=== PATIENT | female | born 1975 | race African-American/Black ===

== ENCOUNTER 2018-02-08 23:34 | Inpatient (IN) | payer MEDICAID ==
[2018-02-09 00:57] LABS: BASO # 0.1 x10^3/uL (0.0-0.2); BASO % 2 % (0-3); EOS # 0.1 x10^3/uL (0.0-0.7); EOS % 1 % (0-3); HEMATOCRIT 41.8 % (36.0-47.0); HEMOGLOBIN 14.3 g/dL (12.0-15.5); LYMPH # 1.6 x10^3/uL (1.0-4.8); LYMPH % 21 % (24-48); MEAN CORPUSCULAR HEMOGLOBIN 29 pg (25-35); MEAN CORPUSCULAR HGB CONC 34 g/dL (31-37); MEAN CORPUSCULAR VOLUME 86 fL (79-100); MONO # 0.6 x10^3/uL (0.0-1.1); MONO % 8 % (0-9); NEUT # 5.5 x10^3uL (1.8-7.7); NEUT % 69 % (31-73); PLATELET COUNT 266 x10^3/uL (140-400); RED BLOOD COUNT 4.89 x10^6/uL (3.50-5.40); RED CELL DISTRIBUTION WIDTH 16.1 % (11.5-14.5)
[2018-02-09 01:10] LABS: ADD MAN DIFF? YES
[2018-02-09 01:12] LABS: ALBUMIN 3.6 g/dL (3.4-5.0); ALBUMIN/GLOBULIN RATIO 0.9 (1.0-1.7); ALK PHOS 131 U/L (46-116); ALT (SGPT) 36 U/L (14-59); ANION GAP 8 (6-14); AST (SGOT) 35 U/L (15-37); BLOOD UREA NITROGEN 24 mg/dL (7-20); BUN/CREATININE RATIO 16 (6-20); CALCIUM 8.9 mg/dL (8.5-10.1); CARBON DIOXIDE 27 mmol/L (21-32); CHLORIDE 93 mmol/L (98-107); CREATININE 1.5 mg/dL (0.6-1.0); GFR 37.9; POTASSIUM 5.2 mmol/L (3.5-5.1); SODIUM 128 mmol/L (136-145); TOTAL BILIRUBIN 1.1 mg/dL (0.2-1.0); TOTAL PROTEIN 7.7 g/dL (6.4-8.2)
[2018-02-09 01:16] LABS: GLUCOSE 521 mg/dL (70-99)
[2018-02-09 01:16] LABS: TROPONINI < 0.017 ng/mL (0.000-0.055)
[2018-02-09] MEDS: INSULIN REGULAR 100 UNIT/ML 3ML VIAL. IM (02:29)
[2018-02-09] MEDS: KETOROLAC 15 MG/ML VIAL. IV (02:30)
[2018-02-09] MEDS: FAMOTIDINE 20 MG TABLET. PO (02:30)
[2018-02-09] MEDS: IV NORMAL SALINE 1000ML BAG 1,000 ML IV ×4 (02:31→14:15)
[2018-02-09 04:03] LABS: POC GLUCOSE 439 mg/dL (70-99)
[2018-02-09] MEDS: INSULIN REGULAR 100 UNIT/ML 3ML VIAL. SQ (04:30)
[2018-02-09] MEDS ORDERED: INSULIN REGULAR 100 UNIT/ML 3ML VIAL. IV (04:30)
[2018-02-09 05:27] LABS: ANION GAP 9 (6-14); BLOOD UREA NITROGEN 27 mg/dL (7-20); CALCIUM 7.7 mg/dL (8.5-10.1); CARBON DIOXIDE 25 mmol/L (21-32); CHLORIDE 99 mmol/L (98-107); CREATININE 1.7 mg/dL (0.6-1.0); GFR 39.7; GLUCOSE 446 mg/dL (70-99); POTASSIUM 4.9 mmol/L (3.5-5.1); SODIUM 133 mmol/L (136-145)
[2018-02-09 05:54] LABS: ACETONE NEG (NEG)
[2018-02-09] MEDS ORDERED: ONDANSETRON PF 4 MG/2 ML VIAL. IV (06:15)
[2018-02-09] MEDS ORDERED: DEXTROSE 50% 25 GM / 50ML DISP.SYRIN. IV (06:15)
[2018-02-09 06:59] LABS: BILIRUBIN,URINE NEGATIVE (NEG); CLARITY,URINE CLEAR; COLOR,URINE YELLOW; GLUCOSE,URINE >=1000 mg/dL (NEG); NITRITE,URINE NEGATIVE (NEG); PH,URINE 5.5; PROTEIN,URINE 100 mg/dL (NEG-TRACE); UROBILINOGEN,URINE 0.2 mg/dL (0.2 mg/dL)
[2018-02-09] MEDS: oxyCODONE/APAP 10/325 1 TAB TABLET PO (07:02)
[2018-02-09 07:27] LABS: BACTERIA,URINE MANY /HPF (0-FEW); RBC,URINE OCC /HPF (0-2); SQUAMOUS EPITHELIAL CELL,UR MOD /LPF
[2018-02-09 07:59] LABS: POC GLUCOSE 360 mg/dL (70-99)
[2018-02-09] MEDS: INSULIN LISPRO 300 UNITS/3 ML INSULN.PEN. SQ ×4 (08:52→17:00)
[2018-02-09 12:19] LABS: POC GLUCOSE 277 mg/dL (70-99)
[2018-02-09 15:46] LABS: INR 1.4 (0.8-1.1); PROTHROMBIN TIME PATIENT 16.8 SEC (11.7-14.0)
[2018-02-09] MEDS: WARFARIN 4 MG TABLET. PO (16:41)
[2018-02-09] MEDS: hydroCHLOROthiazide 25 MG TABLET PO (16:41)
[2018-02-09] MEDS: LISINOPRIL 20 MG TABLET PO (16:42)
[2018-02-09] MEDS: amLODIPine BESYLATE 10 MG TABLET PO (16:42)
[2018-02-09] MEDS: KETOROLAC 30 MG/ML INJ. IV (16:43)
[2018-02-09] MEDS: GABAPENTIN 300 MG CAPSULE. PO ×2 (16:43→20:52)
[2018-02-09 16:55] LABS: POC GLUCOSE 295 mg/dL (70-99)
[2018-02-09] MEDS ORDERED: GABAPENTIN 300 MG CAPSULE. PO (17:00)
[2018-02-09] MEDS: oxyCODONE/APAP 7.5/325 1 TAB TABLET PO ×2 (19:21→23:26)
[2018-02-09 20:38] LABS: POC GLUCOSE 243 mg/dL (70-99)
[2018-02-09] MEDS: ATORVASTATIN CALCIUM 10 MG TABLET. PO (20:51)
[2018-02-09] MEDS: INSULIN GLARGINE 300 UNITS/3 ML INSULN.PEN. SQ (20:56)
[2018-02-09 20:59] LABS: POC GLUCOSE 231 mg/dL (70-99)
[2018-02-10 00:11] LABS: HEMOGLOBIN A1C 11.7 % (4.8-5.6)
[2018-02-10] MEDS: IV NORMAL SALINE 1000ML BAG 1,000 ML IV (01:56)
[2018-02-10 08:12] LABS: POC GLUCOSE 306 mg/dL (70-99)
[2018-02-10] MEDS: hydroCHLOROthiazide 25 MG TABLET PO (08:29)
[2018-02-10] MEDS: amLODIPine BESYLATE 10 MG TABLET PO (08:29)
[2018-02-10] MEDS: LISINOPRIL 20 MG TABLET PO (08:31)
[2018-02-10] MEDS: INSULIN LISPRO 300 UNITS/3 ML INSULN.PEN. SQ ×6 (08:31→17:18)
[2018-02-10] MEDS: GABAPENTIN 300 MG CAPSULE. PO ×4 (08:32→21:59)
[2018-02-10] MEDS: oxyCODONE/APAP 7.5/325 1 TAB TABLET PO ×3 (08:53→19:09)
[2018-02-10 14:12] LABS: POC GLUCOSE 241 mg/dL (70-99)
[2018-02-10 17:09] LABS: POC GLUCOSE 191 mg/dL (70-99)
[2018-02-10] MEDS: WARFARIN 4 MG TABLET. PO (17:10)
[2018-02-10 20:49] LABS: POC GLUCOSE 120 mg/dL (70-99)
[2018-02-10] MEDS: ATORVASTATIN CALCIUM 10 MG TABLET. PO (21:59)
[2018-02-10] MEDS: INSULIN GLARGINE 300 UNITS/3 ML INSULN.PEN. SQ (22:04)
[2018-02-11] MEDS: oxyCODONE/APAP 7.5/325 1 TAB TABLET PO ×4 (00:02→21:13)
[2018-02-11 05:27] LABS: INR 1.3 (0.8-1.1); PROTHROMBIN TIME PATIENT 15.3 SEC (11.7-14.0)
[2018-02-11 07:26] LABS: POC GLUCOSE 279 mg/dL (70-99)
[2018-02-11] MEDS: GABAPENTIN 300 MG CAPSULE. PO ×4 (08:11→21:13)
[2018-02-11] MEDS: hydroCHLOROthiazide 25 MG TABLET PO (08:11)
[2018-02-11] MEDS: LISINOPRIL 20 MG TABLET PO (08:12)
[2018-02-11] MEDS: amLODIPine BESYLATE 10 MG TABLET PO (08:12)
[2018-02-11] MEDS ORDERED: ONDANSETRON PF 4 MG/2 ML VIAL. IV (08:15)
[2018-02-11] MEDS ORDERED: DEXTROSE 50% 25 GM / 50ML DISP.SYRIN. IV (08:15)
[2018-02-11] MEDS ORDERED: ACETAMINOPHEN 500 MG TABLET PO (08:15)
[2018-02-11] MEDS: INSULIN LISPRO 300 UNITS/3 ML INSULN.PEN. SQ ×6 (08:19→17:17)
[2018-02-11] MEDS: INSULIN GLARGINE 300 UNITS/3 ML INSULN.PEN. SQ ×3 (09:00→21:18)
[2018-02-11 11:21] LABS: POC GLUCOSE 228 mg/dL (70-99)
[2018-02-11] MEDS: WARFARIN 4 MG TABLET. PO (16:08)
[2018-02-11 16:46] LABS: POC GLUCOSE 133 mg/dL (70-99)
[2018-02-11 21:01] LABS: POC GLUCOSE 219 mg/dL (70-99)
[2018-02-11] MEDS: ATORVASTATIN CALCIUM 10 MG TABLET. PO (21:13)
[2018-02-12 04:36] LABS: INR 1.5 (0.8-1.1); PROTHROMBIN TIME PATIENT 17.6 SEC (11.7-14.0)
[2018-02-12] MEDS: INSULIN LISPRO 300 UNITS/3 ML INSULN.PEN. SQ ×4 (08:00→11:51)
[2018-02-12 08:06] LABS: POC GLUCOSE 155 mg/dL (70-99)
[2018-02-12] MEDS: hydroCHLOROthiazide 25 MG TABLET PO (08:53)
[2018-02-12] MEDS: amLODIPine BESYLATE 10 MG TABLET PO (08:53)
[2018-02-12] MEDS: GABAPENTIN 300 MG CAPSULE. PO ×3 (08:54→16:12)
[2018-02-12] MEDS: LISINOPRIL 20 MG TABLET PO (08:54)
[2018-02-12] MEDS: INSULIN GLARGINE 300 UNITS/3 ML INSULN.PEN. SQ (08:59)
[2018-02-12] MEDS: oxyCODONE/APAP 7.5/325 1 TAB TABLET PO (09:04)
[2018-02-12 11:50] LABS: POC GLUCOSE 72 mg/dL (70-99)
[2018-02-12 12:45] LABS: POC GLUCOSE 89 mg/dL (70-99)
[2018-02-12] MEDS: WARFARIN 4 MG TABLET. PO (16:12)
== END 2018-02-12 17:00 | disposition home or self-care (01) | DRG 74 ==
LOC: ER 23:34 → 5 NORTH 02-09 06:03
DX: E11.40 Type 2 diabetes mellitus with diabetic neuropathy, unspecified (principal); Z68.41 Body mass index [BMI] 40.0-44.9, adult; E11.65 Type 2 diabetes mellitus with hyperglycemia; Z88.0 Allergy status to penicillin; E66.01 Morbid (severe) obesity due to excess calories; J44.9 Chronic obstructive pulmonary disease, unspecified; I10 Essential (primary) hypertension; G89.29 Other chronic pain; F12.10 Cannabis abuse, uncomplicated; F17.200 Nicotine dependence, unspecified, uncomplicated; Z79.4 Long term (current) use of insulin; Z79.899 Other long term (current) drug therapy; Z83.3 Family history of diabetes mellitus; Z86.73 Personal history of transient ischemic attack (TIA), and cerebral infarction without residual deficits; Z89.611 Acquired absence of right leg above knee; Z89.511 Acquired absence of right leg below knee; Z91.19 Patient's noncompliance with other medical treatment and regimen; Z90.49 Acquired absence of other specified parts of digestive tract; Z88.5 Allergy status to narcotic agent
CPT/HCPCS: 36415; 71045; 80048; 80053; 81001; 82010; 82962; 83036; 84484; 85025; 85610; 87086; 93005; 93925; 96360; 96361; 96372; 96374; 99285; 99285-25; J1815; J1885; J7030

== ENCOUNTER 2020-02-10 17:37 | Inpatient (IN) | payer MEDICAID ==
[~2020-02-10] VITALS: Ht 162.6 cm; Wt 115.2 kg
[~2020-02-10 17:37] MED LIST: AMLO10TA8 PO; CELE200C PO; GABA300C18 PO; HYDR-2145 PO; INSU100I11 SQ; INSU100I13 SQ; LISI-130 PO; LOVA40TA2 PO; WARF4TAB64 PO
--- NOTE | 2020-02-10 18:15 | PHYS DOC ---
Past Medical History Past Medical History: COPD, Diabetes-Type II, Hypertension, Stroke Past Surgical History: No Surgical History, Cholecystectomy Additional Past Surgical Histo: R BKA, Left toes amputated Smoking Status: Current Every Day Smoker Alcohol Use: Rarely Drug Use: Marijuana General Adult EDM: Chief Complaint: LOWER EXTREMITY SWELLING HPI: HPI: Patient is a 44 year old female presenting to the ED with a chief complaint of generalized weakness and increased swelling in her upper and lower extremities. 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 Patient does state that she has a history of diabetes, high blood pressure, high cholesterol. Patient does admit to being an active smoker. Patient states that she has had these symptoms for the last 3 to 4 days as well as chest pain. Patient denies being on any anticoagulation. Patient states that the swelling in the left lower extremity is worse in the last 4 days. Review of Systems: Review of Systems: Constitutional: Denies fever or chills. [] Eyes: Denies change in visual acuity. [] HENT: Denies nasal congestion or sore throat. [] Respiratory: Denies cough or shortness of breath. [] Cardiovascular: Complains of chest pain [] GI: Denies abdominal pain, nausea, vomiting, bloody stools or diarrhea. [] : Denies dysuria. [] Musculoskeletal: Swelling in upper and lower extremities [] Integument: Denies rash. [] Neurologic: Complains of generalized weakness [] Heart Score: Risk Factors: Risk Factors: DM, Current or recent (<one month) smoker, HTN, HLP, family history of CAD, obesity. Risk Scores: Score 0 - 3: 2.5% MACE over next 6 weeks - Discharge Home Score 4 - 6: 20.3% MACE over next 6 weeks - Admit for Clinical Observation Score 7 - 10: 72.7% MACE over next 6 weeks - Early Invasive Strategies Allergies: Allergies: Allergies Coded Allergies Type Severity Reaction Last Updated Verified Penicillins Allergy Intermediate 02/10/18 Yes morphine Allergy Intermediate 02/10/18 Yes Physical Exam: PE: Constitutional: Well developed, well nourished, no acute distress, non-toxic appearance. [] HENT: Normocephalic, atraumatic Eyes: EOMI Neck: Normal range of motion, Supple Cardiovascular: Heart rate regular rhythm Lungs & Thorax: Bilateral rhonchi [] Abdomen: Bowel sounds normal, soft, no tenderness Extremities: Patient has right BKA and partial amputation of the left foot. Swelling in the left lower extremity Neurologic: Alert and oriented X 3 EKG: EKG: EKG interpretation: 18: 27 on 02/10/2020 HR: 80 Sinus rhythm Regular intervals Normal axis Nonspecific ST changes [] Radiology/Procedures: Radiology/Procedures: [] Impression: Chest x-ray.Impression: Mild basal infiltrates could be discoid atelectasis or pneumonia. Course & Med Decision Making: Course & Med Decision Making Pertinent Labs and Imaging studies reviewed. (See chart for details) Ordered labs, chest x-ray, EKG, troponin, ultrasound of the left lower extremity. EKG does not show any acute changes. Creatinine is 1.7. Troponin is 0.134. Patient was given aspirin in the ER. Chest x-ray shows atelectasis. Ultrasound of the left lower extremity is negative for DVT. Patient will be admitted to the hospital for cardiac work-up. Discussed results and plan of care with patient. I discussed case with Dr. Lopez who accepts admission. Also discussed case with order desk clerk on-call Dr. Campbell who accepts consultation. Cardiology recommends the patient be started on heparin. Dragon Disclaimer: Sherif Disclaimer: This electronic medical record was generated, in whole or in part, using a voice recognition dictation system. Departure Departure Referrals: UNKNOWN PCP NAME (PCP) Justicifation of Admission Dx: Justifications for Admission: Justification of Admission Dx: Yes DC: Acute NSTEMI JUS DAVIS DO Feb 10, 2020 18:14
[2020-02-10 18:44] LABS: BASO # 0.1 x10^3/uL (0.0-0.2); BASO % 1 % (0-3); EOS # 0.1 x10^3/uL (0.0-0.7); EOS % 1 % (0-3); HEMATOCRIT 35.4 % (36.0-47.0); HEMOGLOBIN 12.1 g/dL (12.0-15.5); LYMPH # 1.3 x10^3/uL (1.0-4.8); LYMPH % 13 % (24-48); MEAN CORPUSCULAR HEMOGLOBIN 30 pg (25-35); MEAN CORPUSCULAR HGB CONC 34 g/dL (31-37); MEAN CORPUSCULAR VOLUME 87 fL (79-100); MONO # 0.6 x10^3/uL (0.0-1.1); MONO % 6 % (0-9); NEUT # 8.6 x10^3/uL (1.8-7.7); NEUT % 80 % (31-73); PLATELET COUNT 240 x10^3/uL (140-400); RED BLOOD COUNT 4.05 x10^6/uL (3.50-5.40); RED CELL DISTRIBUTION WIDTH 15.5 % (11.5-14.5); WHITE BLOOD COUNT 10.7 x10^3/uL (4.0-11.0)
--- NOTE | 2020-02-10 18:55 | RAD ---
CHEST AP ONLY Clinical History: Reason: pain / Spl. Instructions: / History: Technique: AP view of the chest was obtained at 02/10/2020 6:21 PM. Comparison: February 09, 2018. Findings: The cardiomediastinal silhouette is normal. The pulmonary vasculature is normal. There is hazy opacity in the lung bases right worse than left. Impression: Mild basal infiltrates could be discoid atelectasis or pneumonia. Electronically signed by: Venkata Rasmussen III, MD (02/10/2020 6:52 PM) [id number]
[2020-02-10 19:01] LABS: ALBUMIN 1.6 g/dL (3.4-5.0); ALBUMIN/GLOBULIN RATIO 0.5 (1.0-1.7); CALCIUM 7.4 mg/dL (8.5-10.1); CREATININE 1.7 mg/dL (0.6-1.0); GFR 39.3; TOTAL BILIRUBIN 0.2 mg/dL (0.2-1.0)
--- NOTE | 2020-02-10 19:12 | RAD ---
Left Lower Extremity Venous Doppler Ultrasound History: Reason: swelling / Spl. Instructions: / History: Comparison: None Procedure: Color flow, duplex, spectral analysis and 2D images are obtained with and without compression in the area of the common femoral vein, superficial femoral vein - femoral vein junction, main femoral vein (superficial femoral vein) and popliteal vein. Veins of the proximal calf are also imaged. Findings: There is normal duplex flow, color flow and compressibility of all visualized vein segments. No evidence of deep venous thrombus is present. Study is limited due to large body habitus. There is soft tissue edema. The peroneal vein and PTV's are not visualized. Impression: No evidence of DVT. Electronically signed by: Venkata Rasmussen III, MD (02/10/2020 7:08 PM) [id number]
[2020-02-10 19:44] LABS: BILIRUBIN,URINE NEGATIVE (NEG); CLARITY,URINE CLOUDY; COLOR,URINE YELLOW; NITRITE,URINE NEGATIVE (NEG); PROTEIN,URINE >=300 mg/dL (NEG-TRACE); UROBILINOGEN,URINE 0.2 mg/dL (0.2 mg/dL)
[2020-02-10 19:55] LABS: AMORPHOUS SEDIMENT,UR PRESENT /HPF; BACTERIA,URINE 0 /HPF (0-FEW); RBC,URINE RARE /HPF (0-2); SQUAMOUS EPITHELIAL CELL,UR FEW /LPF; WBC,URINE 0 /HPF (0-4)
[2020-02-10] MEDS ORDERED: ASPIRIN CHEWABLE 81 MG TABLET. PO ONE (20:00)
[2020-02-10] MEDS ORDERED: HEPARIN 25,000UTS/250ML PREMIX 250 ML IV SCH (21:15)
[2020-02-10 21:19] LABS: PROTHROMBIN TIME PATIENT 12.9 SEC (11.7-14.0)
[2020-02-10] MEDS ORDERED: HEPARIN for IV BOLUS 10,000 UNIT/10 ML VIAL. IV PRN (21:30)
[2020-02-10] MEDS ORDERED: HEPARIN for IV BOLUS 10,000 UNIT/10 ML VIAL. IV ONE (21:30)
[2020-02-10] MEDS ORDERED: ANTI-COAG MONITOR BY PHARMACY. MC PRN (21:30)
[2020-02-10] MEDS: HEPARIN 25,000UTS/250ML PREMIX 250 ML IV PRN (21:34)
--- NOTE | 2020-02-10 22:01 | HP ---
ADMIT DATE: 02/10/2020 CHIEF COMPLAINT: Lower extremity swelling. HISTORY OF PRESENT ILLNESS: The patient is a pleasant 44-year-old female who has multiple medical issues. She is complaining of swelling that has been coming on for several days. She tried increasing her home meds, but that did not work. It is rated at 7/10. She also apparently slipped and fell, hit her tailbone. She states that she is also little short of breath. While in the ER, we noted that her troponin was a little high. Chest x-ray is showing some mild basilar infiltrates, possibly pneumonia. Troponin level was a little high at 0.134. BNP is high at 9147. She also has hypokalemia with potassium of 3.0 and her acute renal failure with BUN 29, creatinine 1.7. I discussed the case with ER physician. We are going to admit the patient and do a cardiac workup for her swelling and replace her potassium. I will have Nephrology, Cardiology and Pulmonary look at her. PAST MEDICAL HISTORY: COPD, diabetes, hypertension, stroke, cholecystectomy, right BKA, left toe amputation, tobacco abuse, marijuana use. ALLERGIES: PENICILLIN AND MORPHINE. FAMILY HISTORY: Coronary artery disease. SOCIAL HISTORY: She smokes and also uses marijuana. MEDICATIONS: Reviewed, please refer to the MRAD. REVIEW OF SYSTEMS: GENERAL: No history of weight change, weakness or fevers. SKIN: No bruising, hair changes or rashes. EYES: No blurred, double or loss of vision. NOSE AND THROAT: No history of nosebleeds, hoarseness or sore throat. HEART: No history of palpitations, chest pain or shortness of breath on exertion. LUNGS: She complains of shortness of breath. GASTROINTESTINAL: Denies changes in appetite, nausea, vomiting, diarrhea or constipation. GENITOURINARY: No history of frequency, urgency, hesitancy or nocturia. NEUROLOGIC: Denies history of numbness, tingling, tremor or weakness. PSYCHIATRIC: No history of panic, anxiety or depression. ENDOCRINE: No history of heat or cold intolerance, polyuria or polydipsia. EXTREMITIES: She complains of swelling. MUSCULOSKELETAL: She complains of "tailbone pain." PHYSICAL EXAMINATION: VITAL SIGNS: Temperature is 98, pulse 81, respirations 18, blood pressure 154/80, O2 sat 98% on room air. GENERAL: No apparent distress. Alert and oriented. HEENT: Normal cephalic atraumatic, external auditory canals are patent. EYES: Extraocular muscles are intact, pupils are equally round and reactive to light and accommodation. MUSCULOSKELETAL: Well developed, well nourished, good range of motion. ENDOCRINE: No thyromegaly was palpated. LYMPHATICS: No cervical chain or axillary nodes were noted. HEMATOPOIETIC: No bruising. NECK: Supple, no JVD, no thyromegaly was noted. LUNGS: She has some slight crackles. HEART: RRR, S1, S2 present. Peripheral pulses intact, no obvious murmurs were noted. ABDOMEN: Soft, nontender. Positive bowel sounds no organomegaly, normal bowel sounds. EXTREMITIES: She has a left BKA. She has right lower extremity swelling, at 3+ edema. NEUROLOGIC: Normal speech, normal tone. A & O x3, moves all extremities, no obvious focal deficits. PSYCHIATRIC: Normal affect, normal mood. Stable. SKIN: No ulcerations or rashes, good skin turgor, no jaundice. VASCULAR: Good capillary refill, neurovascular bundle appears to be intact. LABORATORY DATA: Troponin is 0.134. BNP 9147. ASSESSMENT AND PLAN: Acute on chronic systolic and diastolic heart failure with incidental finding of hypokalemia and possible pneumonia on chest x-ray and chronic renal failure. The patient will be admitted. We will consult Pulmonary Medicine, Cardiology and Nephrology. Replace her potassium. We will consider IV Lasix if possible and if the consultants agree. Trend labs, home meds, DVT prophylaxis. Full code. Cardiac monitoring. PROGNOSIS: Guarded. CIELO HOPE DO DR: KEYLA/deshaun JOB#: [id number] / [id number]
--- NOTE | 2020-02-10 22:03 | NUR ---
Pt arrival to floor at this time via ER cart. Pt transferred from bed to bed with maximum assistance. Pt oriented to unit settings, unit routines, plan of care. Pt educated on high fall risk precautions and verbalized understanding. Pt attempted to try to stand and pivot to commode with gait belt and 2 staff assist and was unable to safely transfer due to significant weakness. A purewick catheter was inserted after explanation and discussion with the patient. Pt items and call light in reach. Bed alarm is on. Admission was completed. Pt has prosthesis at bedside, purse, cell phone and hand knitter. She declined an offer to lock any valuables up with security. A wound was noted on admit on later R knee that appears to be a callous that is slightly open. Wound consult placed.
[2020-02-10 22:37] VITALS: BP 161/92
[2020-02-10] MEDS ORDERED: RIVA20TA2 PO (23:08)
[2020-02-10] MEDS ORDERED: TORS20TA2 PO (23:08)
[2020-02-10] MEDS ORDERED: FURO80TA3 PO (23:08)
[2020-02-10] MEDS ORDERED: LOSA-73 PO (23:08)
[2020-02-10] MEDS ORDERED: MONT10TA49 PO (23:08)
[2020-02-10] MEDS ORDERED: TIZA2TAB4 PO (23:12)
[2020-02-11] MEDS ORDERED: DEXTROSE 50% 25 GM / 50ML DISP.SYRIN. IV PRN (00:30)
[2020-02-11] MEDS: fentaNYL PF VIAL 100 MCG/2 ML VIAL IVP PRN ×4 (00:37→19:55)
[2020-02-11] MEDS: INSULIN GLARGINE SYRINGE. SQ SCH ×2 (00:39→21:19)
[2020-02-11] MEDS ORDERED: INSULIN LISPRO 300 UNITS/3 ML VIAL. SQ ONE (01:00)
[2020-02-11 03:12] VITALS: BP 145/87
[2020-02-11 04:11] LABS: HEMATOCRIT 35.8 % (36.0-47.0); HEMOGLOBIN 12.3 g/dL (12.0-15.5); RED BLOOD COUNT 4.07 x10^6/uL (3.50-5.40); RED CELL DISTRIBUTION WIDTH 14.9 % (11.5-14.5); WHITE BLOOD COUNT 10.3 x10^3/uL (4.0-11.0)
--- NOTE | 2020-02-11 05:09 | NUR ---
Pt called out, complains of pelvic pain from not being able to pee. Pt has not voided since admission to the [facility]. Pt has some bladder distention observed and bladder scan revealed greater than 808cc in bladder. #16 cymraes rausch was inserted at this time with sterile technique with immediate return of clear yellow urine of at least 900cc to gravity just while I was in the room. Pt tolerated procedure well.
[2020-02-11 07:15] VITALS: BP 165/95
[2020-02-11] MEDS: INSULIN LISPRO 300 UNITS/3 ML VIAL. SQ SCH ×3 (08:28→17:00)
--- NOTE | 2020-02-11 10:26 | PDOC ---
PROGRESS NOTES History of Present Illness History of Present Illness IMPRESSION Acute on chronic systolic and diastolic heart failure NSTEMI hypokalemia HYPERTENSION MORBID OBESITY Hyperlipidemia possible pneumonia Mild basal infiltrates could be discoid atelectasis or pneumonia. chronic renal disease . STAGE 3 diabetes hx noncompliance hxTHC abuse Occlusion of the right superficial femoral artery. Peripheral vascular disease with prior right below-knee amputation. plan admitted. consult Pulmonary Medicine, consult Cardiology consult Nephrology. Replace potassium. IV Lasix . Trend labs, home meds, DVT prophylaxis. Full code. CVC BED , Cardiac monitoring. glucose control HEPARIN DRIP 38 MIN pt exam, chart review,> 50% of time spent with exam, chart review, pt care coordination Vitals Vitals Vital Signs Date Time Temp Pulse Resp B/P (MAP) Pulse Ox O2 Delivery O2 Flow Rate FiO2 02/11/20 08:41 96 Room Air 02/11/20 07:15 97.8 81 20 165/95 (118) 97.8 Physical Exam Physical Exam GENERAL: No apparent distress. Alert and oriented. HEENT: Normal cephalic atraumatic, external auditory canals are patent. EYES: Extraocular muscles are intact, pupils are equally round and reactive to light and accommodation. MUSCULOSKELETAL: Well developed, well nourished, good range of motion. ENDOCRINE: No thyromegaly was palpated. LYMPHATICS: No cervical chain or axillary nodes were noted. HEMATOPOIETIC: No bruising. NECK: Supple, no JVD, no thyromegaly was noted. LUNGS: slight crackles. HEART: RRR, S1, S2 present. Peripheral pulses intact, no obvious murmurs were noted. ABDOMEN: Soft, nontender. Positive bowel sounds no organomegaly, normal bowel sounds. EXTREMITIES: She has a left BKA. She has right lower extremity swelling, at 3+ edema. NEUROLOGIC: Normal speech, normal tone. A & O x3, moves all extremities, no obvious focal deficits. PSYCHIATRIC: Normal affect, normal mood. Stable. SKIN: No ulcerations or rashes, good skin turgor, no jaundice. VASCULAR: Good capillary refill, neurovascular bundle appears to be intact. General: Alert, Oriented X3, Cooperative, No acute distress Heart: Regular rate Lungs: Clear Abdomen: Normal bowel sounds, Soft, No tenderness Extremities: No cyanosis Labs LABS Left Lower Extremity Venous Doppler Ultrasound History: Reason: swelling / Spl. Instructions: / History: Comparison: None Procedure: Color flow, duplex, spectral analysis and 2D images are obtained with and without compression in the area of the common femoral vein, superficial femoral vein - femoral vein junction, main femoral vein (superficial femoral vein) and popliteal vein. Veins of the proximal calf are also imaged. Findings: There is normal duplex flow, color flow and compressibility of all visualized vein segments. No evidence of deep venous thrombus is present. Study is limited due to large body habitus. There is soft tissue edema. The peroneal vein and PTV's are not visualized. Impression: No evidence of DVT. Electronically signed by: Jazmin Stewart III, MD (02/10/2020 7:08 PM) [id number] DICTATED and SIGNED BY: JAZMIN STEWART III, MD DATE: 02/10/20 190 Bilateral lower extremity arterial ultrasound, 02/09/2018: HISTORY: Atherosclerotic disease, previous amputations, left leg pain Duplex evaluation of the major arteries in both lower extremities was performed including grayscale, color-flow and spectral Doppler analysis. On the right, the common femoral artery demonstrates a triphasic Doppler waveform. There is occlusion of the right superficial femoral artery. There is reconstitution of the right popliteal artery which demonstrates a dampened monophasic blood flow. There has been a right below the knee amputation. On the left, the common femoral Doppler waveform is triphasic. The left profundus femoris Doppler waveform is biphasic. There is mild atherosclerotic plaquing in the left superficial femoral and popliteal arteries without evidence of a significant focal velocity acceleration to suggest high-grade stenosis. The left superficial femoral and popliteal Doppler waveforms are predominantly triphasic. In the left lower leg the anterior tibial, posterior tibial and peroneal arteries are patent. They demonstrate monophasic Doppler waveforms. The left dorsalis pedis artery is patent and also demonstrates a monophasic Doppler waveform. IMPRESSION: 1. Mild scattered atherosclerotic plaquing without evidence of high-grade left femoral-popliteal stenosis. 2. Three-vessel runoff in the left lower leg with only mild degradation of the distal Doppler waveforms. 3. Occlusion of the right superficial femoral artery. Electronically signed by: Ploi Salazar MD (02/10/2018 8:29 AM) [facility] DICTATED and SIGNED BY: POLI SALAZAR MD DATE: 02/10/18 0820 CHEST AP ONLY Clinical History: Reason: pain / Spl. Instructions: / History: Technique: AP view of the chest was obtained at 02/10/2020 6:21 PM. Comparison: February 09, 2018. Findings: The cardiomediastinal silhouette is normal. The pulmonary vasculature is normal. There is hazy opacity in the lung bases right worse than left. Impression: Mild basal infiltrates could be discoid atelectasis or pneumonia. Electronically signed by: Jazmin Stewart III, MD (02/10/2020 6:52 PM) [id number] DICTATED and SIGNED BY: JAZMIN STEWART III, MD DATE: 02/10/20 185 Laboratory Tests Test 02/10/20 18:30 02/10/20 19:25 02/10/20 23:20 02/11/20 03:40 White Blood Count 10.7 x10^3/uL (4.0-11.0) 10.3 x10^3/uL (4.0-11.0) Red Blood Count 4.05 x10^6/uL (3.50-5.40) 4.07 x10^6/uL (3.50-5.40) Hemoglobin 12.1 g/dL (12.0-15.5) 12.3 g/dL (12.0-15.5) Hematocrit 35.4 % (36.0-47.0) 35.8 % (36.0-47.0) Mean Corpuscular Volume 87 fL (79-100) 88 fL (79-100) Mean Corpuscular Hemoglobin 30 pg (25-35) 30 pg (25-35) Mean Corpuscular Hemoglobin Concent 34 g/dL (31-37) 35 g/dL (31-37) Red Cell Distribution Width 15.5 % (11.5-14.5) 14.9 % (11.5-14.5) Platelet Count 240 x10^3/uL (140-400) 235 x10^3/uL (140-400) Neutrophils (%) (Auto) 80 % (31-73) Lymphocytes (%) (Auto) 13 % (24-48) Monocytes (%) (Auto) 6 % (0-9) Eosinophils (%) (Auto) 1 % (0-3) Basophils (%) (Auto) 1 % (0-3) Neutrophils # (Auto) 8.6 x10^3/uL (1.8-7.7) Lymphocytes # (Auto) 1.3 x10^3/uL (1.0-4.8) Monocytes # (Auto) 0.6 x10^3/uL (0.0-1.1) Eosinophils # (Auto) 0.1 x10^3/uL (0.0-0.7) Basophils # (Auto) 0.1 x10^3/uL (0.0-0.2) Prothrombin Time 12.9 SEC (11.7-14.0) Prothromb Time International Ratio 1.0 (0.8-1.1) Activated Partial Thromboplast Time 30 SEC (24-38) Sodium Level 143 mmol/L (136-145) Potassium Level 3.0 mmol/L (3.5-5.1) Chloride Level 105 mmol/L (98-107) Carbon Dioxide Level 29 mmol/L (21-32) Anion Gap 9 (6-14) Blood Urea Nitrogen 29 mg/dL (7-20) Creatinine 1.7 mg/dL (0.6-1.0) Estimated GFR (Cockcroft-Gault) 39.3 BUN/Creatinine Ratio 17 (6-20) Glucose Level 442 mg/dL (70-99) Calcium Level 7.4 mg/dL (8.5-10.1) Total Bilirubin 0.2 mg/dL (0.2-1.0) Aspartate Amino Transf (AST/SGOT) 56 U/L (15-37) Alanine Aminotransferase (ALT/SGPT) 39 U/L (14-59) Alkaline Phosphatase 149 U/L (46-116) Troponin I Quantitative 0.134 ng/mL (0.000-0.055) OP-Vwo-P-Type Natriuretic Peptide 9147 pg/mL (0-124) Total Protein 5.0 g/dL (6.4-8.2) Albumin 1.6 g/dL (3.4-5.0) Albumin/Globulin Ratio 0.5 (1.0-1.7) Urine Collection Type Unknown Urine Color Yellow Urine Clarity Cloudy Urine pH 6.0 (<5.0-8.0) Urine Specific [place] 1.025 (1.000-1.030) Urine Protein >=300 mg/dL (NEG-TRACE) Urine Glucose (UA) >=1000 mg/dL (NEG) Urine Ketones (Stick) Negative mg/dL (NEG) Urine Blood Small (NEG) Urine Nitrite Negative (NEG) Urine Bilirubin Negative (NEG) Urine Urobilinogen Dipstick 0.2 mg/dL (0.2 mg/dL) Urine Leukocyte Esterase Negative (NEG) Urine RBC Rare /HPF (0-2) Urine WBC 0 /HPF (0-4) Urine Squamous Epithelial Cells Few /LPF Urine Amorphous Sediment Present /HPF Urine Bacteria 0 /HPF (0-FEW) Glucose (Fingerstick) 482 mg/dL (70-99) Heparin Anti-Xa Act, Unfractionated 0.68 IU/mL (0.30-0.70) Test 02/11/20 07:44 Glucose (Fingerstick) 370 mg/dL (70-99) Assessment and Plan Assessmemt and Plan Problems Medical Problems: (1) NSTEMI (non-ST elevated myocardial infarction) Status: Acute Comment Review of Relevant I have reviewed the following items myesha (where applicable) has been applied. Labs Laboratory Tests Test 02/10/20 18:30 02/10/20 19:25 02/10/20 23:20 02/11/20 03:40 White Blood Count 10.7 x10^3/uL (4.0-11.0) 10.3 x10^3/uL (4.0-11.0) Red Blood Count 4.05 x10^6/uL (3.50-5.40) 4.07 x10^6/uL (3.50-5.40) Hemoglobin 12.1 g/dL (12.0-15.5) 12.3 g/dL (12.0-15.5) Hematocrit 35.4 % (36.0-47.0) 35.8 % (36.0-47.0) Mean Corpuscular Volume 87 fL (79-100) 88 fL (79-100) Mean Corpuscular Hemoglobin 30 pg (25-35) 30 pg (25-35) Mean Corpuscular Hemoglobin Concent 34 g/dL (31-37) 35 g/dL (31-37) Red Cell Distribution Width 15.5 % (11.5-14.5) 14.9 % (11.5-14.5) Platelet Count 240 x10^3/uL (140-400) 235 x10^3/uL (140-400) Neutrophils (%) (Auto) 80 % (31-73) Lymphocytes (%) (Auto) 13 % (24-48) Monocytes (%) (Auto) 6 % (0-9) Eosinophils (%) (Auto) 1 % (0-3) Basophils (%) (Auto) 1 % (0-3) Neutrophils # (Auto) 8.6 x10^3/uL (1.8-7.7) Lymphocytes # (Auto) 1.3 x10^3/uL (1.0-4.8) Monocytes # (Auto) 0.6 x10^3/uL (0.0-1.1) Eosinophils # (Auto) 0.1 x10^3/uL (0.0-0.7) Basophils # (Auto) 0.1 x10^3/uL (0.0-0.2) Prothrombin Time 12.9 SEC (11.7-14.0) Prothromb Time International Ratio 1.0 (0.8-1.1) Activated Partial Thromboplast Time 30 SEC (24-38) Sodium Level 143 mmol/L (136-145) Potassium Level 3.0 mmol/L (3.5-5.1) Chloride Level 105 mmol/L (98-107) Carbon Dioxide Level 29 mmol/L (21-32) Anion Gap 9 (6-14) Blood Urea Nitrogen 29 mg/dL (7-20) Creatinine 1.7 mg/dL (0.6-1.0) Estimated GFR (Cockcroft-Gault) 39.3 BUN/Creatinine Ratio 17 (6-20) Glucose Level 442 mg/dL (70-99) Calcium Level 7.4 mg/dL (8.5-10.1) Total Bilirubin 0.2 mg/dL (0.2-1.0) Aspartate Amino Transf (AST/SGOT) 56 U/L (15-37) Alanine Aminotransferase (ALT/SGPT) 39 U/L (14-59) Alkaline Phosphatase 149 U/L (46-116) Troponin I Quantitative 0.134 ng/mL (0.000-0.055) RE-Wdm-G-Type Natriuretic Peptide 9147 pg/mL (0-124) Total Protein 5.0 g/dL (6.4-8.2) Albumin 1.6 g/dL (3.4-5.0) Albumin/Globulin Ratio 0.5 (1.0-1.7) Urine Collection Type Unknown Urine Color Yellow Urine Clarity Cloudy Urine pH 6.0 (<5.0-8.0) Urine Specific [place] 1.025 (1.000-1.030) Urine Protein >=300 mg/dL (NEG-TRACE) Urine Glucose (UA) >=1000 mg/dL (NEG) Urine Ketones (Stick) Negative mg/dL (NEG) Urine Blood Small (NEG) Urine Nitrite Negative (NEG) Urine Bilirubin Negative (NEG) Urine Urobilinogen Dipstick 0.2 mg/dL (0.2 mg/dL) Urine Leukocyte Esterase Negative (NEG) Urine RBC Rare /HPF (0-2) Urine WBC 0 /HPF (0-4) Urine Squamous Epithelial Cells Few /LPF Urine Amorphous Sediment Present /HPF Urine Bacteria 0 /HPF (0-FEW) Glucose (Fingerstick) 482 mg/dL (70-99) Heparin Anti-Xa Act, Unfractionated 0.68 IU/mL (0.30-0.70) Test 02/11/20 07:44 Glucose (Fingerstick) 370 mg/dL (70-99) Laboratory Tests Test 02/10/20 18:30 02/10/20 19:25 02/10/20 23:20 02/11/20 03:40 White Blood Count 10.7 x10^3/uL (4.0-11.0) 10.3 x10^3/uL (4.0-11.0) Red Blood Count 4.05 x10^6/uL (3.50-5.40) 4.07 x10^6/uL (3.50-5.40) Hemoglobin 12.1 g/dL (12.0-15.5) 12.3 g/dL (12.0-15.5) Hematocrit 35.4 % (36.0-47.0) 35.8 % (36.0-47.0) Mean Corpuscular Volume 87 fL (79-100) 88 fL (79-100) Mean Corpuscular Hemoglobin 30 pg (25-35) 30 pg (25-35) Mean Corpuscular Hemoglobin Concent 34 g/dL (31-37) 35 g/dL (31-37) Red Cell Distribution Width 15.5 % (11.5-14.5) 14.9 % (11.5-14.5) Platelet Count 240 x10^3/uL (140-400) 235 x10^3/uL (140-400) Neutrophils (%) (Auto) 80 % (31-73) Lymphocytes (%) (Auto) 13 % (24-48) Monocytes (%) (Auto) 6 % (0-9) Eosinophils (%) (Auto) 1 % (0-3) Basophils (%) (Auto) 1 % (0-3) Neutrophils # (Auto) 8.6 x10^3/uL (1.8-7.7) Lymphocytes # (Auto) 1.3 x10^3/uL (1.0-4.8) Monocytes # (Auto) 0.6 x10^3/uL (0.0-1.1) Eosinophils # (Auto) 0.1 x10^3/uL (0.0-0.7) Basophils # (Auto) 0.1 x10^3/uL (0.0-0.2) Prothrombin Time 12.9 SEC (11.7-14.0) Prothromb Time International Ratio 1.0 (0.8-1.1) Activated Partial Thromboplast Time 30 SEC (24-38) Sodium Level 143 mmol/L (136-145) Potassium Level 3.0 mmol/L (3.5-5.1) Chloride Level 105 mmol/L (98-107) Carbon Dioxide Level 29 mmol/L (21-32) Anion Gap 9 (6-14) Blood Urea Nitrogen 29 mg/dL (7-20) Creatinine 1.7 mg/dL (0.6-1.0) Estimated GFR (Cockcroft-Gault) 39.3 BUN/Creatinine Ratio 17 (6-20) Glucose Level 442 mg/dL (70-99) Calcium Level 7.4 mg/dL (8.5-10.1) Total Bilirubin 0.2 mg/dL (0.2-1.0) Aspartate Amino Transf (AST/SGOT) 56 U/L (15-37) Alanine Aminotransferase (ALT/SGPT) 39 U/L (14-59) Alkaline Phosphatase 149 U/L (46-116) Troponin I Quantitative 0.134 ng/mL (0.000-0.055) FT-Xrb-V-Type Natriuretic Peptide 9147 pg/mL (0-124) Total Protein 5.0 g/dL (6.4-8.2) Albumin 1.6 g/dL (3.4-5.0) Albumin/Globulin Ratio 0.5 (1.0-1.7) Urine Collection Type Unknown Urine Color Yellow Urine Clarity Cloudy Urine pH 6.0 (<5.0-8.0) Urine Specific [place] 1.025 (1.000-1.030) Urine Protein >=300 mg/dL (NEG-TRACE) Urine Glucose (UA) >=1000 mg/dL (NEG) Urine Ketones (Stick) Negative mg/dL (NEG) Urine Blood Small (NEG) Urine Nitrite Negative (NEG) Urine Bilirubin Negative (NEG) Urine Urobilinogen Dipstick 0.2 mg/dL (0.2 mg/dL) Urine Leukocyte Esterase Negative (NEG) Urine RBC Rare /HPF (0-2) Urine WBC 0 /HPF (0-4) Urine Squamous Epithelial Cells Few /LPF Urine Amorphous Sediment Present /HPF Urine Bacteria 0 /HPF (0-FEW) Glucose (Fingerstick) 482 mg/dL (70-99) Heparin Anti-Xa Act, Unfractionated 0.68 IU/mL (0.30-0.70) Test 02/11/20 07:44 Glucose (Fingerstick) 370 mg/dL (70-99) Medications Current Medications Aspirin (Aspirin Chewable) 324 mg 1X ONCE PO Last administered on 02/10/20at 20:36; Start 02/10/20 at 20:00; Stop 02/10/20 at 20:01; Status DC Heparin Sodium (Porcine) (Heparin Sodium) 4,000 unit 1X ONCE IV Last administered on 02/10/20at 21:31; Start 02/10/20 at 21:30; Stop 02/10/20 at 21:31; Status DC Heparin Sodium/ Dextrose 250 ml @ 0 mls/hr CONT IV ; Start 02/10/20 at 21:15; Status UNV Heparin Sodium/ Dextrose 250 ml @ 0 mls/hr CONT PRN IV PER PROTOCOL Last administered on 02/10/20at 21:34; Start 02/10/20 at 21:30 Heparin Sodium (Porcine) (Heparin Sodium) 2,950 unit PRN Q6HRS PRN IV FOR UFH LEVEL LESS THAN 0.2; Start 02/10/20 at 21:30 Info (Anti-Coagulation Monitoring By Pharmacy) 1 each PRN DAILY PRN MC SEE COMMENTS Last administered on 02/11/20at 01:59; Start 02/10/20 at 21:30 Insulin Glargine (Lantus Syringe) 65 unit QHS SQ Last administered on 02/11/20at 00:39; Start 02/11/20 at 01:00 Dextrose (Dextrose 50%-Water Syringe) 12.5 gm PRN Q15MIN PRN IV SEE COMMENTS; Start 02/11/20 at 00:30 Insulin Human Lispro (HumaLOG) 35 units TIDWMEALS SQ Last administered on 02/11/20at 08:28; Start 02/11/20 at 08:00 Insulin Human Lispro (HumaLOG) 20 units 1X ONCE SQ Last administered on 02/11/20at 00:40; Start 02/11/20 at 01:00; Stop 02/11/20 at 01:01; Status DC Fentanyl Citrate (Fentanyl 2ml Vial) 50 mcg PRN Q2HR PRN IVP SEVERE PAIN 7-10 Last administered on 02/11/20at 08:11; Start 02/11/20 at 00:30 Active Scripts Active Reported Tizanidine Hcl 2 Mg Tablet 2 Mg PO PRN Q6HRS PRN Losartan Potassium 50 Mg Tablet 50 Mg PO DAILY Montelukast Sodium Tablet (Montelukast Sodium) 10 Mg Tablet 10 Mg PO HS Torsemide 20 Mg Tablet 2 Tab PO DAILY Furosemide 80 Mg Tablet 1 Tab PO BID Xarelto (Rivaroxaban) 20 Mg Tablet 1 Tab PO DAILY 30 Days with food Lovastatin 40 Mg Tablet 40 Mg PO HS Humalog (Insulin Lispro) 100 Unit/1 Ml Insuln.pen 35 Unit SQ TIDWMEALS Lantus Solostar (Insulin Glargine,Hum.rec.anlog) 100 Unit/1 Ml Insuln.pen 65 U nit SQ QHS Gabapentin (Gabapentin) 300 Mg Capsule 300 Mg PO TID Amlodipine Besylate 10 Mg Tablet 10 Mg PO DAILY Vitals/I & O Vital Sign - Last 24 Hours 02/10/20 02/10/20 02/10/205/20 18:01 18:35 19:05 19:35 Temp 98.7 98.7 Pulse 81 82 84 82 Resp 18 24 11 11 B/P (MAP) 158/88 (111) 146/74 (98) 156/84 (108) 154/88 (110) Pulse Ox 96 100 98 98 O2 Delivery Room Air Room Air Room Air Room Air 02/10/20 02/10/20 02/10/20 02/10/20 20:05 20:35 21:05 21:35 Pulse 82 85 83 84 Resp 11 23 10 14 B/P (MAP) 161/79 (106) 165/80 (108) 165/94 (117) 160/83 (108) Pulse Ox 100 100 96 95 O2 Delivery Room Air Room Air Room Air Room Air 02/10/20 02/10/20 02/11/20 02/11/20 22:37 23:30 00:37 01:07 Temp 98.3 98.3 Pulse 76 Resp 18 20 20 B/P (MAP) 161/92 (115) Pulse Ox 96 96 O2 Delivery Room Air Room Air Room Air 02/11/20 02/11/20 02/11/20 02/11/20 03:12 07:15 08:11 08:41 Temp 97.4 97.8 97.4 97.8 Pulse 87 81 Resp 16 20 B/P (MAP) 145/87 (106) 165/95 (118) Pulse Ox 94 96 96 96 O2 Delivery Room Air Room Air Room Air Room Air Intake and Output 02/10/20 02/10/20 02/11/20 15:00 23:00 07:00 Intake Total 120 ml Output Total 1050 ml Balance -930 ml WENDY NELSON MD Feb 11, 2020 10:26
--- NOTE | 2020-02-11 11:19 | CONS ---
DATE OF CONSULTATION: PULMONARY CONSULTATION ATTENDING PHYSICIAN: Dr. Brothers. REASON FOR CONSULTATION: Dyspnea and edema. HISTORY OF PRESENT ILLNESS: The patient is a 44-year-old obese female with a BMI of 46. She has been a smoker for 30 years and continues to smoke cigarettes. She came in to the hospital with generalized swelling. She said she has some mild shortness of breath. No cough, no fever, no chills. No chest pain. She did fell recently and hit her back and has been complaining of pain in her tailbone. The patient's chest x-ray was reviewed and shows slightly prominent interstitial markings in the right lower chest. There is cardiomegaly as well. The patient has been admitted for further evaluation. Denies any focal weakness. No nausea, vomiting, no diarrhea, no dysuria. PAST MEDICAL HISTORY: Significant for COPD with ongoing tobaccoism, history of diabetes, hypertension, peripheral vascular disease, stroke, cholecystectomy, right BKA, left toe amputation. PAST SURGICAL HISTORY: As above. ALLERGIES: PENICILLIN AND MORPHINE. FAMILY HISTORY: Coronary artery disease. SOCIAL HISTORY: Smoked cigarettes since past 30 years and uses marijuana. MEDICATIONS: Reviewed as listed in the MRAD including heparin. SYSTEM REVIEW: Twelve-point system obtained. Pertinent positives discussed in my history of present illness, otherwise noncontributory. All systems that were negative were reviewed as well. PHYSICAL EXAMINATION: VITAL SIGNS: Reviewed. Blood pressure 165/95, pulse ox 96% on room air, afebrile. NECK: Supple. LUNGS: With clear breath sounds. CARDIOVASCULAR: With a regular rate. ABDOMEN: Soft. EXTREMITIES: With some mild edema of the left lower and right BKA. LABORATORY DATA: Reviewed. White cell count 10.3, hemoglobin 12.3 and platelets are 235. BUN 29, creatinine of 1.7. Albumin is 1.6. IMPRESSION: 1. Dyspnea with generalized edema. Consistent with mild congestive heart failure, likely diastolic. 2. Hypertension, under suboptimal control. 3. Acute kidney injury versus chronic kidney disease. 4. Mildly increased troponin level. Possible non-ST myocardial infarction. 5. Long history of tobacco use, suspect underlying chronic obstructive pulmonary disease. 6. Ongoing marijuana use. 7. Peripheral vascular disease with prior right below-knee amputation. RECOMMENDATIONS: 1. From a pulmonary standpoint, she is stable. I had counseled her regarding tobacco cessation. 2. P.r.n. Lasix. 3. Follow cardiology recommendations. 4. Monitor renal function. 5. Outpatient PFTs. 6. She was counseled regarding substance abuse cessation. 7. She has severe protein-calorie malnutrition. Consult dietitian. 8. We will follow along with you. NATALIE ALEGRE MD DR: TREV/deshaun JOB#: [id number] / [id number]
[2020-02-11 11:30] VITALS: BP 176/89
--- NOTE | 2020-02-11 11:55 | PDOC2 ---
CONSULT Date of Consult Date of Consult DATE: 02/11/20 TIME: 11:46 Reason for Consult Reason for Consult: RENAL FAILURE Referring Physician Referring Physician: JAYY Identification/Chief Complaint Chief Complaint SOB Source Source: Chart review, Patient History of Present Illness Reason for Visit: THIS IS A 44 YR OLD WITH SWELLING AND MILD SOB. PULM EVAL ONGOING. SHE IS MORBIDLY OBESE WITH BMI OF 46. IMAGING OF CHEST POS FOR INTERSTITIAL PROMINENCE AND CM. CR OF 1.7. OLD RECORDS SHOWED A CR OF 1.5 DATING BACK TO AT LEAST 2014. DENIES ANY KNOWLEDGE OF CKD. SEES PHYSICIANS IN [place]. NO EVIDENCE OF NEPHROTOXINS. NO FREQUENT UTI'S Past Medical History Cardiovascular: HTN CENTRAL NERVOUS SYSTEM: CVA Musculoskeletal: low back pain, Stiffness Renal/: Chronic renal insuff Endocrine: Diabetes Past Surgical History Past Surgical History RIGHT BKA Past Surgical History: Cholecystectomy Family History Family History: Diabetes Social History Social History: Parent Current Problem List Problem List Problems Medical Problems: (1) NSTEMI (non-ST elevated myocardial infarction) Status: Acute Current Medications Current Medications Current Medications Aspirin (Aspirin Chewable) 324 mg 1X ONCE PO Last administered on 02/10/20at 20:36; Start 02/10/20 at 20:00; Stop 02/10/20 at 20:01; Status DC Heparin Sodium (Porcine) (Heparin Sodium) 4,000 unit 1X ONCE IV Last administered on 02/10/20at 21:31; Start 02/10/20 at 21:30; Stop 02/10/20 at 21:31; Status DC Heparin Sodium/ Dextrose 250 ml @ 0 mls/hr CONT IV ; Start 02/10/20 at 21:15; Status UNV Heparin Sodium/ Dextrose 250 ml @ 0 mls/hr CONT PRN IV PER PROTOCOL Last administered on 02/10/20at 21:34; Start 02/10/20 at 21:30 Heparin Sodium (Porcine) (Heparin Sodium) 2,950 unit PRN Q6HRS PRN IV FOR UFH LEVEL LESS THAN 0.2; Start 02/10/20 at 21:30 Info (Anti-Coagulation Monitoring By Pharmacy) 1 each PRN DAILY PRN MC SEE COMMENTS Last administered on 02/11/20at 01:59; Start 02/10/20 at 21:30 Insulin Glargine (Lantus Syringe) 65 unit QHS SQ Last administered on 02/11/20at 00:39; Start 02/11/20 at 01:00 Dextrose (Dextrose 50%-Water Syringe) 12.5 gm PRN Q15MIN PRN IV SEE COMMENTS; Start 02/11/20 at 00:30 Insulin Human Lispro (HumaLOG) 35 units TIDWMEALS SQ Last administered on 02/11/20at 08:28; Start 02/11/20 at 08:00 Insulin Human Lispro (HumaLOG) 20 units 1X ONCE SQ Last administered on 02/11/20at 00:40; Start 02/11/20 at 01:00; Stop 02/11/20 at 01:01; Status DC Fentanyl Citrate (Fentanyl 2ml Vial) 50 mcg PRN Q2HR PRN IVP SEVERE PAIN 7-10 Last administered on 02/11/20at 08:11; Start 02/11/20 at 00:30 Active Scripts Active Reported Tizanidine Hcl 2 Mg Tablet 2 Mg PO PRN Q6HRS PRN Losartan Potassium 50 Mg Tablet 50 Mg PO DAILY Montelukast Sodium Tablet (Montelukast Sodium) 10 Mg Tablet 10 Mg PO HS Torsemide 20 Mg Tablet 2 Tab PO DAILY Furosemide 80 Mg Tablet 1 Tab PO BID Xarelto (Rivaroxaban) 20 Mg Tablet 1 Tab PO DAILY 30 Days with food Lovastatin 40 Mg Tablet 40 Mg PO HS Humalog (Insulin Lispro) 100 Unit/1 Ml Insuln.pen 35 Unit SQ TIDWMEALS Lantus Solostar (Insulin Glargine,Hum.rec.anlog) 100 Unit/1 Ml Insuln.pen 65 Unit SQ QHS Gabapentin (Gabapentin) 300 Mg Capsule 300 Mg PO TID Amlodipine Besylate 10 Mg Tablet 10 Mg PO DAILY Allergies Allergies: Coded Allergies: Penicillins (Verified Allergy, Intermediate, 02/10/18) morphine (Verified Allergy, Intermediate, 02/10/18) ROS General: YES: Fatigue PSYCHOLOGICAL ROS: YES: Anxiety, Depression Eyes: Yes Decreased vision ALLERGY AND IMMUNOLOGY: YES: Seasonal Allergies Respiratory: YES: Cough Cardiovascular: yes Edema Gastrointestinal: Yes Constipation Genitourinary: YES Other (NOCTURIA) Musculoskeletal: Yes Muscular Weakness Neurological: Yes Weakness Skin: Yes Dry Skin Physical Exam General: Alert, Cooperative, No acute distress HEENT: Atraumatic, PERRLA Lungs: Clear to auscultation Heart: Regular rate Abdomen: Normal bowel sounds Extremities: No clubbing Skin: No breakdown Neuro: Normal speech Psych/Mental Status: Other (FLAT) MUSCULOSKELETAL: No joint tenderness Vitals VITALS Vital Signs Date Time Temp Pulse Resp B/P (MAP) Pulse Ox O2 Delivery O2 Flow Rate FiO2 02/11/20 08:41 96 Room Air 02/11/20 07:15 97.8 81 20 165/95 (118) 97.8 Labs Labs Laboratory Tests Test 02/10/20 18:30 02/10/20 19:25 02/10/20 23:20 02/11/20 03:40 White Blood Count 10.7 x10^3/uL (4.0-11.0) 10.3 x10^3/uL (4.0-11.0) Red Blood Count 4.05 x10^6/uL (3.50-5.40) 4.07 x10^6/uL (3.50-5.40) Hemoglobin 12.1 g/dL (12.0-15.5) 12.3 g/dL (12.0-15.5) Hematocrit 35.4 % (36.0-47.0) 35.8 % (36.0-47.0) Mean Corpuscular Volume 87 fL (79-100) 88 fL (79-100) Mean Corpuscular Hemoglobin 30 pg (25-35) 30 pg (25-35) Mean Corpuscular Hemoglobin Concent 34 g/dL (31-37) 35 g/dL (31-37) Red Cell Distribution Width 15.5 % (11.5-14.5) 14.9 % (11.5-14.5) Platelet Count 240 x10^3/uL (140-400) 235 x10^3/uL (140-400) Neutrophils (%) (Auto) 80 % (31-73) Lymphocytes (%) (Auto) 13 % (24-48) Monocytes (%) (Auto) 6 % (0-9) Eosinophils (%) (Auto) 1 % (0-3) Basophils (%) (Auto) 1 % (0-3) Neutrophils # (Auto) 8.6 x10^3/uL (1.8-7.7) Lymphocytes # (Auto) 1.3 x10^3/uL (1.0-4.8) Monocytes # (Auto) 0.6 x10^3/uL (0.0-1.1) Eosinophils # (Auto) 0.1 x10^3/uL (0.0-0.7) Basophils # (Auto) 0.1 x10^3/uL (0.0-0.2) Prothrombin Time 12.9 SEC (11.7-14.0) Prothromb Time International Ratio 1.0 (0.8-1.1) Activated Partial Thromboplast Time 30 SEC (24-38) Sodium Level 143 mmol/L (136-145) Potassium Level 3.0 mmol/L (3.5-5.1) Chloride Level 105 mmol/L (98-107) Carbon Dioxide Level 29 mmol/L (21-32) Anion Gap 9 (6-14) Blood Urea Nitrogen 29 mg/dL (7-20) Creatinine 1.7 mg/dL (0.6-1.0) Estimated GFR (Cockcroft-Gault) 39.3 BUN/Creatinine Ratio 17 (6-20) Glucose Level 442 mg/dL (70-99) Calcium Level 7.4 mg/dL (8.5-10.1) Total Bilirubin 0.2 mg/dL (0.2-1.0) Aspartate Amino Transf (AST/SGOT) 56 U/L (15-37) Alanine Aminotransferase (ALT/SGPT) 39 U/L (14-59) Alkaline Phosphatase 149 U/L (46-116) Troponin I Quantitative 0.134 ng/mL (0.000-0.055) XR-Nay-E-Type Natriuretic Peptide 9147 pg/mL (0-124) Total Protein 5.0 g/dL (6.4-8.2) Albumin 1.6 g/dL (3.4-5.0) Albumin/Globulin Ratio 0.5 (1.0-1.7) Urine Collection Type Unknown Urine Color Yellow Urine Clarity Cloudy Urine pH 6.0 (<5.0-8.0) Urine Specific [place] 1.025 (1.000-1.030) Urine Protein >=300 mg/dL (NEG-TRACE) Urine Glucose (UA) >=1000 mg/dL (NEG) Urine Ketones (Stick) Negative mg/dL (NEG) Urine Blood Small (NEG) Urine Nitrite Negative (NEG) Urine Bilirubin Negative (NEG) Urine Urobilinogen Dipstick 0.2 mg/dL (0.2 mg/dL) Urine Leukocyte Esterase Negative (NEG) Urine RBC Rare /HPF (0-2) Urine WBC 0 /HPF (0-4) Urine Squamous Epithelial Cells Few /LPF Urine Amorphous Sediment Present /HPF Urine Bacteria 0 /HPF (0-FEW) Glucose (Fingerstick) 482 mg/dL (70-99) Heparin Anti-Xa Act, Unfractionated 0.68 IU/mL (0.30-0.70) Test 02/11/20 07:44 Glucose (Fingerstick) 370 mg/dL (70-99) Laboratory Tests Test 02/10/20 18:30 02/10/20 19:25 02/10/20 23:20 02/11/20 03:40 White Blood Count 10.7 x10^3/uL (4.0-11.0) 10.3 x10^3/uL (4.0-11.0) Red Blood Count 4.05 x10^6/uL (3.50-5.40) 4.07 x10^6/uL (3.50-5.40) Hemoglobin 12.1 g/dL (12.0-15.5) 12.3 g/dL (12.0-15.5) Hematocrit 35.4 % (36.0-47.0) 35.8 % (36.0-47.0) Mean Corpuscular Volume 87 fL (79-100) 88 fL (79-100) Mean Corpuscular Hemoglobin 30 pg (25-35) 30 pg (25-35) Mean Corpuscular Hemoglobin Concent 34 g/dL (31-37) 35 g/dL (31-37) Red Cell Distribution Width 15.5 % (11.5-14.5) 14.9 % (11.5-14.5) Platelet Count 240 x10^3/uL (140-400) 235 x10^3/uL (140-400) Neutrophils (%) (Auto) 80 % (31-73) Lymphocytes (%) (Auto) 13 % (24-48) Monocytes (%) (Auto) 6 % (0-9) Eosinophils (%) (Auto) 1 % (0-3) Basophils (%) (Auto) 1 % (0-3) Neutrophils # (Auto) 8.6 x10^3/uL (1.8-7.7) Lymphocytes # (Auto) 1.3 x10^3/uL (1.0-4.8) Monocytes # (Auto) 0.6 x10^3/uL (0.0-1.1) Eosinophils # (Auto) 0.1 x10^3/uL (0.0-0.7) Basophils # (Auto) 0.1 x10^3/uL (0.0-0.2) Prothrombin Time 12.9 SEC (11.7-14.0) Prothromb Time International Ratio 1.0 (0.8-1.1) Activated Partial Thromboplast Time 30 SEC (24-38) Sodium Level 143 mmol/L (136-145) Potassium Level 3.0 mmol/L (3.5-5.1) Chloride Level 105 mmol/L (98-107) Carbon Dioxide Level 29 mmol/L (21-32) Anion Gap 9 (6-14) Blood Urea Nitrogen 29 mg/dL (7-20) Creatinine 1.7 mg/dL (0.6-1.0) Estimated GFR (Cockcroft-Gault) 39.3 BUN/Creatinine Ratio 17 (6-20) Glucose Level 442 mg/dL (70-99) Calcium Level 7.4 mg/dL (8.5-10.1) Total Bilirubin 0.2 mg/dL (0.2-1.0) Aspartate Amino Transf (AST/SGOT) 56 U/L (15-37) Alanine Aminotransferase (ALT/SGPT) 39 U/L (14-59) Alkaline Phosphatase 149 U/L (46-116) Troponin I Quantitative 0.134 ng/mL (0.000-0.055) SF-Zas-R-Type Natriuretic Peptide 9147 pg/mL (0-124) Total Protein 5.0 g/dL (6.4-8.2) Albumin 1.6 g/dL (3.4-5.0) Albumin/Globulin Ratio 0.5 (1.0-1.7) Urine Collection Type Unknown Urine Color Yellow Urine Clarity Cloudy Urine pH 6.0 (<5.0-8.0) Urine Specific [place] 1.025 (1.000-1.030) Urine Protein >=300 mg/dL (NEG-TRACE) Urine Glucose (UA) >=1000 mg/dL (NEG) Urine Ketones (Stick) Negative mg/dL (NEG) Urine Blood Small (NEG) Urine Nitrite Negative (NEG) Urine Bilirubin Negative (NEG) Urine Urobilinogen Dipstick 0.2 mg/dL (0.2 mg/dL) Urine Leukocyte Esterase Negative (NEG) Urine RBC Rare /HPF (0-2) Urine WBC 0 /HPF (0-4) Urine Squamous Epithelial Cells Few /LPF Urine Amorphous Sediment Present /HPF Urine Bacteria 0 /HPF (0-FEW) Glucose (Fingerstick) 482 mg/dL (70-99) Heparin Anti-Xa Act, Unfractionated 0.68 IU/mL (0.30-0.70) Test 02/11/20 07:44 Glucose (Fingerstick) 370 mg/dL (70-99) Assessment/Plan Assessment/Plan IMP CKD STAGE 4 HYPOKALEMIA DYSPNEA GENERALIZED EDEMA UNCONTROLLED HTN PROB COPD OBESITY PAD DM II PLAN REPLACE K RESUME TORSEMIDE RESUME ARB WILL FOLLOW ROSANNE OROZCO MD Feb 11, 2020 11:55
[2020-02-11 12:00] LABS: ALBUMIN 1.7 g/dL (3.4-5.0); CALCIUM 7.4 mg/dL (8.5-10.1); CREATININE 1.5 mg/dL (0.6-1.0); GFR 45.4; PHOSPHORUS 2.8 mg/dL (2.6-4.7)
[2020-02-11] MEDS ORDERED: FLUCONAZOLE 100 MG TABLET. PO ONE (12:00)
[2020-02-11] MEDS ORDERED: POTASSIUM CHLORIDE 20 MEQ TABLET.ER. PO ONE (12:00)
[2020-02-11 12:15] LABS: POTASSIUM 2.9 mmol/L (3.5-5.1)
[2020-02-11] MEDS ORDERED: POTASSIUM CHLORIDE 10 MEQ TABLET.ER. PO SCH ×2 (13:00→16:00)
[2020-02-11] MEDS: PHENAZOPYRIDINE 200 MG TABLET. PO PRN ×2 (13:09→21:08)
[2020-02-11] MEDS: TORSEMIDE 20 MG TABLET. PO SCH ×2 (13:10→21:08)
[2020-02-11] MEDS: LOSARTAN POTASSIUM 50 MG TABLET. PO SCH (13:10)
--- NOTE | 2020-02-11 13:57 | PDOC2 ---
CONSULT Date of Consult Date of Consult DATE: 02/11/20 TIME: 13:49 Reason for Consult Reason for Consult: Minimally elevated troponin, possible heart failure. Referring Physician Referring Physician: Dr. Brothers Identification/Chief Complaint Chief Complaint Generalized weakness and extremity swelling Source Source: Chart review, Patient History of Present Illness Reason for Visit: The patient is a 44-year-old female who was admitted through the emergency room for generalized weakness and increased swelling of her lower extremities and upper extremities. The patient denied chest pain. She has an extensive medical history including diabetes, hypertension, COPD, chronic kidney disease and significant peripheral vascular disease including a right BKA and a partial left foot amputation. Initial lab showed potassium of 2.9. Troponin minimally elevated 0.134 and a creatinine of 1.5. Lower extremity venous ultrasound showed no DVTs. The patient is feeling better this morning but continues to have swelling. EKG shows relatively mild nonspecific ST segment changes. Chest x-ray shows mild basilar infiltrates. Past Medical History Cardiovascular: HTN, Other (Peripheral vascular disease) Pulmonary: COPD CENTRAL NERVOUS SYSTEM: CVA Musculoskeletal: low back pain, Stiffness Renal/: Chronic renal insuff Endocrine: Diabetes Past Surgical History Past Surgical History: Cholecystectomy, Other (Right BKA and partial left foot amputation) Family History Family History: Diabetes Social History 1 pack per day ALCOHOL: occassional Current Problem List Problem List Problems Medical Problems: (1) NSTEMI (non-ST elevated myocardial infarction) Status: Acute Current Medications Current Medications Current Medications Aspirin (Aspirin Chewable) 324 mg 1X ONCE PO Last administered on 02/10/20at 2 0:36; Start 02/10/20 at 20:00; Stop 02/10/20 at 20:01; Status DC Heparin Sodium (Porcine) (Heparin Sodium) 4,000 unit 1X ONCE IV Last administered on 02/10/20at 21:31; Start 02/10/20 at 21:30; Stop 02/10/20 at 21:31; Status DC Heparin Sodium/ Dextrose 250 ml @ 0 mls/hr CONT IV ; Start 02/10/20 at 21:15; Status UNV Heparin Sodium/ Dextrose 250 ml @ 0 mls/hr CONT PRN IV PER PROTOCOL Last administered on 02/10/20at 21:34; Start 02/10/20 at 21:30 Heparin Sodium (Porcine) (Heparin Sodium) 2,950 unit PRN Q6HRS PRN IV FOR UFH LEVEL LESS THAN 0.2; Start 02/10/20 at 21:30 Info (Anti-Coagulation Monitoring By Pharmacy) 1 each PRN DAILY PRN MC SEE COMMENTS Last administered on 02/11/20at 01:59; Start 02/10/20 at 21:30 Insulin Glargine (Lantus Syringe) 65 unit QHS SQ Last administered on 02/11/20at 00:39; Start 02/11/20 at 01:00 Dextrose (Dextrose 50%-Water Syringe) 12.5 gm PRN Q15MIN PRN IV SEE COMMENTS; Start 02/11/20 at 00:30 Insulin Human Lispro (HumaLOG) 35 units TIDWMEALS SQ Last administered on 02/11/20 13:24; Start 02/11/20 at 08:00 Insulin Human Lispro (HumaLOG) 20 units 1X ONCE SQ Last administered on 02/11/20at 00:40; Start 02/11/20 at 01:00; Stop 02/11/20 at 01:01; Status DC Fentanyl Citrate (Fentanyl 2ml Vial) 50 mcg PRN Q2HR PRN IVP SEVERE PAIN 7-10 Last administered on 02/11/20 13:12; Start 02/11/20 at 00:30 Fluconazole (Diflucan) 150 mg 1X ONCE PO Last administered on 02/11/20 13:11; Start 02/11/20 at 12:00; Stop 02/11/20 at 12:01; Status DC Phenazopyridine HCl (Pyridium) 200 mg PRN Q6HRS PRN PO URINARY PAIN Last administered on 02/11/20at 13:09; Start 02/11/20 at 11:45 Potassium Chloride (Klor-Con) 20 meq 1X ONCE PO Last administered on 02/11/20 13:11; Start 02/11/20 at 12:00; Stop 02/11/20 at 12:01; Status DC Losartan Potassium (Cozaar) 50 mg DAILY PO Last administered on 02/11/20 13:10; Start 02/11/20 at 12:00 Torsemide (Demadex) 20 mg BID PO Last administered on 02/11/20 13:10; Start 02/11/20 at 12:00 Potassium Chloride (Klor-Con) 30 meq DAILYWBKFT PO ; Start 02/11/20 at 13:00 Active Scripts Active Reported Tizanidine Hcl 2 Mg Tablet 2 Mg PO PRN Q6HRS PRN Losartan Potassium 50 Mg Tablet 50 Mg PO DAILY Montelukast Sodium Tablet (Montelukast Sodium) 10 Mg Tablet 10 Mg PO HS Torsemide 20 Mg Tablet 2 Tab PO DAILY Furosemide 80 Mg Tablet 1 Tab PO BID Xarelto (Rivaroxaban) 20 Mg Tablet 1 Tab PO DAILY 30 Days with food Lovastatin 40 Mg Tablet 40 Mg PO HS Humalog (Insulin Lispro) 100 Unit/1 Ml Insuln.pen 35 Unit SQ TIDWMEALS Lantus Solostar (Insulin Glargine,Hum.rec.anlog) 100 Unit/1 Ml Insuln.pen 65 Unit SQ QHS Gabapentin (Gabapentin) 300 Mg Capsule 300 Mg PO TID Amlodipine Besylate 10 Mg Tablet 10 Mg PO DAILY Allergies Allergies: Coded Allergies: Penicillins (Verified Allergy, Intermediate, 02/10/18) morphine (Verified Allergy, Intermediate, 02/10/18) ROS General: YES: Fatigue Respiratory: YES: SOB with excertion Physical Exam General: mild distress HEENT: Atraumatic Lungs: Other (Decreased breath sounds) Heart: Regular rate Abdomen: Normal bowel sounds Extremities: Other (Bilateral edema) Vitals VITALS Vital Signs Date Time Temp Pulse Resp B/P (MAP) Pulse Ox O2 Delivery O2 Flow Rate FiO2 02/11/20 13:12 96 Room Air 02/11/20 13:10 80 176/89 02/11/20 11:30 97.9 18 97.9 Labs Labs Laboratory Tests Test 02/10/20 18:30 02/10/20 19:25 02/10/20 23:20 02/11/20 03:40 White Blood Count 10.7 x10^3/uL (4.0-11.0) 10.3 x10^3/uL (4.0-11.0) Red Blood Count 4.05 x10^6/uL (3.50-5.40) 4.07 x10^6/uL (3.50-5.40) Hemoglobin 12.1 g/dL (12.0-15.5) 12.3 g/dL (12.0-15.5) Hematocrit 35.4 % (36.0-47.0) 35.8 % (36.0-47.0) Mean Corpuscular Volume 87 fL (79-100) 88 fL (79-100) Mean Corpuscular Hemoglobin 30 pg (25-35) 30 pg (25-35) Mean Corpuscular Hemoglobin Concent 34 g/dL (31-37) 35 g/dL (31-37) Red Cell Distribution Width 15.5 % (11.5-14.5) 14.9 % (11.5-14.5) Platelet Count 240 x10^3/uL (140-400) 235 x10^3/uL (140-400) Neutrophils (%) (Auto) 80 % (31-73) Lymphocytes (%) (Auto) 13 % (24-48) Monocytes (%) (Auto) 6 % (0-9) Eosinophils (%) (Auto) 1 % (0-3) Basophils (%) (Auto) 1 % (0-3) Neutrophils # (Auto) 8.6 x10^3/uL (1.8-7.7) Lymphocytes # (Auto) 1.3 x10^3/uL (1.0-4.8) Monocytes # (Auto) 0.6 x10^3/uL (0.0-1.1) Eosinophils # (Auto) 0.1 x10^3/uL (0.0-0.7) Basophils # (Auto) 0.1 x10^3/uL (0.0-0.2) Prothrombin Time 12.9 SEC (11.7-14.0) Prothromb Time International Ratio 1.0 (0.8-1.1) Activated Partial Thromboplast Time 30 SEC (24-38) Sodium Level 143 mmol/L (136-145) Potassium Level 3.0 mmol/L (3.5-5.1) Chloride Level 105 mmol/L (98-107) Carbon Dioxide Level 29 mmol/L (21-32) Anion Gap 9 (6-14) Blood Urea Nitrogen 29 mg/dL (7-20) Creatinine 1.7 mg/dL (0.6-1.0) Estimated GFR (Cockcroft-Gault) 39.3 BUN/Creatinine Ratio 17 (6-20) Glucose Level 442 mg/dL (70-99) Calcium Level 7.4 mg/dL (8.5-10.1) Total Bilirubin 0.2 mg/dL (0.2-1.0) Aspartate Amino Transf (AST/SGOT) 56 U/L (15-37) Alanine Aminotransferase (ALT/SGPT) 39 U/L (14-59) Alkaline Phosphatase 149 U/L (46-116) Troponin I Quantitative 0.134 ng/mL (0.000-0.055) IZ-Lnj-N-Type Natriuretic Peptide 9147 pg/mL (0-124) Total Protein 5.0 g/dL (6.4-8.2) Albumin 1.6 g/dL (3.4-5.0) Albumin/Globulin Ratio 0.5 (1.0-1.7) Urine Collection Type Unknown Urine Color Yellow Urine Clarity Cloudy Urine pH 6.0 (<5.0-8.0) Urine Specific [place] 1.025 (1.000-1.030) Urine Protein >=300 mg/dL (NEG-TRACE) Urine Glucose (UA) >=1000 mg/dL (NEG) Urine Ketones (Stick) Negative mg/dL (NEG) Urine Blood Small (NEG) Urine Nitrite Negative (NEG) Urine Bilirubin Negative (NEG) Urine Urobilinogen Dipstick 0.2 mg/dL (0.2 mg/dL) Urine Leukocyte Esterase Negative (NEG) Urine RBC Rare /HPF (0-2) Urine WBC 0 /HPF (0-4) Urine Squamous Epithelial Cells Few /LPF Urine Amorphous Sediment Present /HPF Urine Bacteria 0 /HPF (0-FEW) Glucose (Fingerstick) 482 mg/dL (70-99) Heparin Anti-Xa Act, Unfractionated 0.68 IU/mL (0.30-0.70) Test 02/11/20 07:44 02/11/20 11:30 02/11/20 12:08 Glucose (Fingerstick) 370 mg/dL (70-99) 261 mg/dL (70-99) Heparin Anti-Xa Act, Unfractionated 0.34 IU/mL (0.30-0.70) Sodium Level 143 mmol/L (136-145) Potassium Level 2.9 mmol/L (3.5-5.1) Chloride Level 105 mmol/L (98-107) Carbon Dioxide Level 31 mmol/L (21-32) Anion Gap 7 (6-14) Blood Urea Nitrogen 27 mg/dL (7-20) Creatinine 1.5 mg/dL (0.6-1.0) Estimated GFR (Cockcroft-Gault) 45.4 Glucose Level 289 mg/dL (70-99) Calcium Level 7.4 mg/dL (8.5-10.1) Phosphorus Level 2.8 mg/dL (2.6-4.7) Albumin 1.7 g/dL (3.4-5.0) Laboratory Tests Test 02/10/20 18:30 02/10/20 19:25 02/10/20 23:20 02/11/20 03:40 White Blood Count 10.7 x10^3/uL (4.0-11.0) 10.3 x10^3/uL (4.0-11.0) Red Blood Count 4.05 x10^6/uL (3.50-5.40) 4.07 x10^6/uL (3.50-5.40) Hemoglobin 12.1 g/dL (12.0-15.5) 12.3 g/dL (12.0-15.5) Hematocrit 35.4 % (36.0-47.0) 35.8 % (36.0-47.0) Mean Corpuscular Volume 87 fL (79-100) 88 fL (79-100) Mean Corpuscular Hemoglobin 30 pg (25-35) 30 pg (25-35) Mean Corpuscular Hemoglobin Concent 34 g/dL (31-37) 35 g/dL (31-37) Red Cell Distribution Width 15.5 % (11.5-14.5) 14.9 % (11.5-14.5) Platelet Count 240 x10^3/uL (140-400) 235 x10^3/uL (140-400) Neutrophils (%) (Auto) 80 % (31-73) Lymphocytes (%) (Auto) 13 % (24-48) Monocytes (%) (Auto) 6 % (0-9) Eosinophils (%) (Auto) 1 % (0-3) Basophils (%) (Auto) 1 % (0-3) Neutrophils # (Auto) 8.6 x10^3/uL (1.8-7.7) Lymphocytes # (Auto) 1.3 x10^3/uL (1.0-4.8) Monocytes # (Auto) 0.6 x10^3/uL (0.0-1.1) Eosinophils # (Auto) 0.1 x10^3/uL (0.0-0.7) Basophils # (Auto) 0.1 x10^3/uL (0.0-0.2) Prothrombin Time 12.9 SEC (11.7-14.0) Prothromb Time International Ratio 1.0 (0.8-1.1) Activated Partial Thromboplast Time 30 SEC (24-38) Sodium Level 143 mmol/L (136-145) Potassium Level 3.0 mmol/L (3.5-5.1) Chloride Level 105 mmol/L (98-107) Carbon Dioxide Level 29 mmol/L (21-32) Anion Gap 9 (6-14) Blood Urea Nitrogen 29 mg/dL (7-20) Creatinine 1.7 mg/dL (0.6-1.0) Estimated GFR (Cockcroft-Gault) 39.3 BUN/Creatinine Ratio 17 (6-20) Glucose Level 442 mg/dL (70-99) Calcium Level 7.4 mg/dL (8.5-10.1) Total Bilirubin 0.2 mg/dL (0.2-1.0) Aspartate Amino Transf (AST/SGOT) 56 U/L (15-37) Alanine Aminotransferase (ALT/SGPT) 39 U/L (14-59) Alkaline Phosphatase 149 U/L (46-116) Troponin I Quantitative 0.134 ng/mL (0.000-0.055) FY-Dmg-I-Type Natriuretic Peptide 9147 pg/mL (0-124) Total Protein 5.0 g/dL (6.4-8.2) Albumin 1.6 g/dL (3.4-5.0) Albumin/Globulin Ratio 0.5 (1.0-1.7) Urine Collection Type Unknown Urine Color Yellow Urine Clarity Cloudy Urine pH 6.0 (<5.0-8.0) Urine Specific [place] 1.025 (1.000-1.030) Urine Protein >=300 mg/dL (NEG-TRACE) Urine Glucose (UA) >=1000 mg/dL (NEG) Urine Ketones (Stick) Negative mg/dL (NEG) Urine Blood Small (NEG) Urine Nitrite Negative (NEG) Urine Bilirubin Negative (NEG) Urine Urobilinogen Dipstick 0.2 mg/dL (0.2 mg/dL) Urine Leukocyte Esterase Negative (NEG) Urine RBC Rare /HPF (0-2) Urine WBC 0 /HPF (0-4) Urine Squamous Epithelial Cells Few /LPF Urine Amorphous Sediment Present /HPF Urine Bacteria 0 /HPF (0-FEW) Glucose (Fingerstick) 482 mg/dL (70-99) Heparin Anti-Xa Act, Unfractionated 0.68 IU/mL (0.30-0.70) Test 02/11/20 07:44 02/11/20 11:30 02/11/20 12:08 Glucose (Fingerstick) 370 mg/dL (70-99) 261 mg/dL (70-99) Heparin Anti-Xa Act, Unfractionated 0.34 IU/mL (0.30-0.70) Sodium Level 143 mmol/L (136-145) Potassium Level 2.9 mmol/L (3.5-5.1) Chloride Level 105 mmol/L (98-107) Carbon Dioxide Level 31 mmol/L (21-32) Anion Gap 7 (6-14) Blood Urea Nitrogen 27 mg/dL (7-20) Creatinine 1.5 mg/dL (0.6-1.0) Estimated GFR (Cockcroft-Gault) 45.4 Glucose Level 289 mg/dL (70-99) Calcium Level 7.4 mg/dL (8.5-10.1) Phosphorus Level 2.8 mg/dL (2.6-4.7) Albumin 1.7 g/dL (3.4-5.0) Images Images Chest x-ray with mild basilar infiltrates. Lower extremity venous ultrasound with no DVTs Assessment/Plan Assessment/Plan 1. Generalized weakness. Multiple medical problems as above. From a cardiac viewpoint will complete rule out. Troponin minimally elevated at 0.134 with no acute ischemic changes. We will also check an echocardiogram. History is suggestive of possible diastolic heart failure. 2. Extremity swelling as noted above. Creatinine of 1.5. Renal evaluation in progress. Echocardiogram for possible diastolic heart failure. 3. Peripheral vascular disease. 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 Continue present medications and work-up. 4. Diabetes mellitus. Poor control. 5. Hypertension. Improved overnight. We will continue to monitor. 6. COPD with continued tobacco abuse. 7. Chronic kidney disease. Creatinine of 1.5. As per renal. Thank you for allowing us to participate in the care of your patient.` JACIEL RICHARD MD Feb 11, 2020 13:57
[2020-02-11 15:30] VITALS: BP 179/88
[2020-02-11] MEDS: HEPARIN 25,000UTS/250ML PREMIX 250 ML IV PRN (18:31)
[2020-02-11 19:02] VITALS: BP 177/99
--- NOTE | 2020-02-11 19:32 | NUR ---
pt bladders scanned this shift and 0 in bladder at this time.
[2020-02-11 22:03] VITALS: BP 184/96
[2020-02-12] VITALS (7 sets, daily range): BP systolic 152–171; BP diastolic 89–121
[2020-02-12] MEDS: fentaNYL PF VIAL 100 MCG/2 ML VIAL IVP PRN ×4 (00:48→21:01)
--- NOTE | 2020-02-12 04:30 | EKG ---
[facility] [address] [place] [address] Test Date: 2020-02-10 Test Time: 18:27:36 Pat Name: EVELYN HSU Department: Room: 262 1 Gender: F Artist Agent: : [id number] Requested By: JUS DAVIS Order Number: [id number] Reading MD: Adan Augustin MD Measurements Intervals [place] Rate: 80 P: 48 OK: 124 QRS: -38 QRSD: 82 T: 60 QT: 390 QTc: 453 Interpretive Statements SINUS RHYTHM LEFT ATRIAL ABNORMALITY ABNORMAL LEFT AXIS DEVIATION R-S TRANSITION ZONE IN V LEADS DISPLACED TO THE LEFT LEFT ANTERIOR FASCICULAR BLOCK ABNORMAL ECG Electronically Signed On 02-16-2020 11:13:58 CDT by Adan Augustin MD
[2020-02-12 05:45] LABS: BASO % 1 % (0-3); EOS # 0.1 x10^3/uL (0.0-0.7); EOS % 1 % (0-3); HEMATOCRIT 41.8 % (36.0-47.0); HEMOGLOBIN 14.1 g/dL (12.0-15.5); LYMPH # 1.6 x10^3/uL (1.0-4.8); LYMPH % 18 % (24-48); MEAN CORPUSCULAR HEMOGLOBIN 30 pg (25-35); MEAN CORPUSCULAR HGB CONC 34 g/dL (31-37); MEAN CORPUSCULAR VOLUME 88 fL (79-100); MONO # 0.6 x10^3/uL (0.0-1.1); MONO % 7 % (0-9); NEUT # 6.7 x10^3/uL (1.8-7.7); NEUT % 74 % (31-73); PLATELET COUNT 224 x10^3/uL (140-400); RED BLOOD COUNT 4.73 x10^6/uL (3.50-5.40); RED CELL DISTRIBUTION WIDTH 15.7 % (11.5-14.5); WHITE BLOOD COUNT 9.1 x10^3/uL (4.0-11.0)
[2020-02-12 06:05] LABS: ALBUMIN 1.5 g/dL (3.4-5.0); ALBUMIN/GLOBULIN RATIO 0.5 (1.0-1.7); CALCIUM 7.7 mg/dL (8.5-10.1); CREATININE 1.2 mg/dL (0.6-1.0); GFR 58.8; TOTAL BILIRUBIN 0.2 mg/dL (0.2-1.0); TOTAL PROTEIN 4.7 g/dL (6.4-8.2)
[2020-02-12 06:08] LABS: POTASSIUM 2.6 mmol/L (3.5-5.1)
[2020-02-12] MEDS ORDERED: POTASSIUM CHLORIDE 20 MEQ TABLET.ER. PO ONE ×3 (06:30→10:30)
[2020-02-12] MEDS: INSULIN LISPRO 300 UNITS/3 ML VIAL. SQ SCH ×3 (08:00→16:36)
[2020-02-12] MEDS: PHENAZOPYRIDINE 200 MG TABLET. PO PRN ×3 (09:33→21:22)
[2020-02-12] MEDS: LOSARTAN POTASSIUM 50 MG TABLET. PO SCH (09:33)
[2020-02-12] MEDS: TORSEMIDE 20 MG TABLET. PO SCH ×2 (09:36→21:22)
--- NOTE | 2020-02-12 10:17 | PDOC ---
PULMONARY PROGRESS NOTES Subjective Denies SOB or Cough, reports her breathing is good Report LLE pain and weakness Vitals Vital Signs Date Time Temp Pulse Resp B/P (MAP) Pulse Ox O2 Delivery O2 Flow Rate FiO2 02/12/20 09:33 85 153/101 02/12/20 07:20 97.5 18 98 Room Air 97.5 ROS: No Nausea, No Chest Pain, No Abdominal Pain, No Increase Cough General: Alert, Oriented X4 Lungs: Clear Cardiovascular: S1, S2 Abdomen: Soft, Other (obese) Neuro Exam: Alert, Oriented Extremities: Other (R BKA ) Skin: Warm, Dry Labs Laboratory Tests Test 02/10/20 18:30 02/10/20 19:25 02/10/20 23:20 02/11/20 03:40 White Blood Count 10.7 x10^3/uL (4.0-11.0) 10.3 x10^3/uL (4.0-11.0) Red Blood Count 4.05 x10^6/uL (3.50-5.40) 4.07 x10^6/uL (3.50-5.40) Hemoglobin 12.1 g/dL (12.0-15.5) 12.3 g/dL (12.0-15.5) Hematocrit 35.4 % (36.0-47.0) 35.8 % (36.0-47.0) Mean Corpuscular Volume 87 fL (79-100) 88 fL (79-100) Mean Corpuscular Hemoglobin 30 pg (25-35) 30 pg (25-35) Mean Corpuscular Hemoglobin Concent 34 g/dL (31-37) 35 g/dL (31-37) Red Cell Distribution Width 15.5 % (11.5-14.5) 14.9 % (11.5-14.5) Platelet Count 240 x10^3/uL (140-400) 235 x10^3/uL (140-400) Neutrophils (%) (Auto) 80 % (31-73) Lymphocytes (%) (Auto) 13 % (24-48) Monocytes (%) (Auto) 6 % (0-9) Eosinophils (%) (Auto) 1 % (0-3) Basophils (%) (Auto) 1 % (0-3) Neutrophils # (Auto) 8.6 x10^3/uL (1.8-7.7) Lymphocytes # (Auto) 1.3 x10^3/uL (1.0-4.8) Monocytes # (Auto) 0.6 x10^3/uL (0.0-1.1) Eosinophils # (Auto) 0.1 x10^3/uL (0.0-0.7) Basophils # (Auto) 0.1 x10^3/uL (0.0-0.2) Prothrombin Time 12.9 SEC (11.7-14.0) Prothromb Time International Ratio 1.0 (0.8-1.1) Activated Partial Thromboplast Time 30 SEC (24-38) Sodium Level 143 mmol/L (136-145) Potassium Level 3.0 mmol/L (3.5-5.1) Chloride Level 105 mmol/L (98-107) Carbon Dioxide Level 29 mmol/L (21-32) Anion Gap 9 (6-14) Blood Urea Nitrogen 29 mg/dL (7-20) Creatinine 1.7 mg/dL (0.6-1.0) Estimated GFR (Cockcroft-Gault) 39.3 BUN/Creatinine Ratio 17 (6-20) Glucose Level 442 mg/dL (70-99) Calcium Level 7.4 mg/dL (8.5-10.1) Total Bilirubin 0.2 mg/dL (0.2-1.0) Aspartate Amino Transf (AST/SGOT) 56 U/L (15-37) Alanine Aminotransferase (ALT/SGPT) 39 U/L (14-59) Alkaline Phosphatase 149 U/L (46-116) Troponin I Quantitative 0.134 ng/mL (0.000-0.055) XE-Sbn-O-Type Natriuretic Peptide 9147 pg/mL (0-124) Total Protein 5.0 g/dL (6.4-8.2) Albumin 1.6 g/dL (3.4-5.0) Albumin/Globulin Ratio 0.5 (1.0-1.7) Urine Collection Type Unknown Urine Color Yellow Urine Clarity Cloudy Urine pH 6.0 (<5.0-8.0) Urine Specific Mobile 1.025 (1.000-1.030) Urine Protein >=300 mg/dL (NEG-TRACE) Urine Glucose (UA) >=1000 mg/dL (NEG) Urine Ketones (Stick) Negative mg/dL (NEG) Urine Blood Small (NEG) Urine Nitrite Negative (NEG) Urine Bilirubin Negative (NEG) Urine Urobilinogen Dipstick 0.2 mg/dL (0.2 mg/dL) Urine Leukocyte Esterase Negative (NEG) Urine RBC Rare /HPF (0-2) Urine WBC 0 /HPF (0-4) Urine Squamous Epithelial Cells Few /LPF Urine Amorphous Sediment Present /HPF Urine Bacteria 0 /HPF (0-FEW) Glucose (Fingerstick) 482 mg/dL (70-99) Heparin Anti-Xa Act, Unfractionated 0.68 IU/mL (0.30-0.70) Test 02/11/20 07:44 02/11/20 11:30 02/11/20 12:08 02/11/20 17:15 Glucose (Fingerstick) 370 mg/dL (70-99) 261 mg/dL (70-99) 79 mg/dL (70-99) Heparin Anti-Xa Act, Unfractionated 0.34 IU/mL (0.30-0.70) Sodium Level 143 mmol/L (136-145) Potassium Level 2.9 mmol/L (3.5-5.1) Chloride Level 105 mmol/L (98-107) Carbon Dioxide Level 31 mmol/L (21-32) Anion Gap 7 (6-14) Blood Urea Nitrogen 27 mg/dL (7-20) Creatinine 1.5 mg/dL (0.6-1.0) Estimated GFR (Cockcroft-Gault) 45.4 Glucose Level 289 mg/dL (70-99) Calcium Level 7.4 mg/dL (8.5-10.1) Phosphorus Level 2.8 mg/dL (2.6-4.7) Magnesium Level 1.8 mg/dL (1.8-2.4) Troponin I Quantitative 0.130 ng/mL (0.000-0.055) Albumin 1.7 g/dL (3.4-5.0) Test 02/11/20 18:10 02/11/20 20:55 02/12/20 03:20 02/12/20 05:00 Heparin Anti-Xa Act, Unfractionated 0.30 IU/mL (0.30-0.70) 0.21 IU/mL (0.30-0.70) Glucose (Fingerstick) 141 mg/dL (70-99) 51 mg/dL (70-99) White Blood Count 9.1 x10^3/uL (4.0-11.0) Red Blood Count 4.73 x10^6/uL (3.50-5.40) Hemoglobin 14.1 g/dL (12.0-15.5) Hematocrit 41.8 % (36.0-47.0) Mean Corpuscular Volume 88 fL (79-100) Mean Corpuscular Hemoglobin 30 pg (25-35) Mean Corpuscular Hemoglobin Concent 34 g/dL (31-37) Red Cell Distribution Width 15.7 % (11.5-14.5) Platelet Count 224 x10^3/uL (140-400) Neutrophils (%) (Auto) 74 % (31-73) Lymphocytes (%) (Auto) 18 % (24-48) Monocytes (%) (Auto) 7 % (0-9) Eosinophils (%) (Auto) 1 % (0-3) Basophils (%) (Auto) 1 % (0-3) Neutrophils # (Auto) 6.7 x10^3/uL (1.8-7.7) Lymphocytes # (Auto) 1.6 x10^3/uL (1.0-4.8) Monocytes # (Auto) 0.6 x10^3/uL (0.0-1.1) Eosinophils # (Auto) 0.1 x10^3/uL (0.0-0.7) Basophils # (Auto) 0.0 x10^3/uL (0.0-0.2) Sodium Level 149 mmol/L (136-145) Potassium Level 2.6 mmol/L (3.5-5.1) Chloride Level 109 mmol/L (98-107) Carbon Dioxide Level 33 mmol/L (21-32) Anion Gap 7 (6-14) Blood Urea Nitrogen 22 mg/dL (7-20) Creatinine 1.2 mg/dL (0.6-1.0) Estimated GFR (Cockcroft-Gault) 58.8 BUN/Creatinine Ratio 18 (6-20) Glucose Level 77 mg/dL (70-99) Calcium Level 7.7 mg/dL (8.5-10.1) Magnesium Level 1.8 mg/dL (1.8-2.4) Total Bilirubin 0.2 mg/dL (0.2-1.0) Aspartate Amino Transf (AST/SGOT) 34 U/L (15-37) Alanine Aminotransferase (ALT/SGPT) 34 U/L (14-59) Alkaline Phosphatase 144 U/L (46-116) Troponin I Quantitative 0.108 ng/mL (0.000-0.055) Total Protein 4.7 g/dL (6.4-8.2) Albumin 1.5 g/dL (3.4-5.0) Albumin/Globulin Ratio 0.5 (1.0-1.7) Test 02/12/20 07:37 02/12/20 09:24 Glucose (Fingerstick) 59 mg/dL (70-99) 127 mg/dL (70-99) Laboratory Tests Test 02/11/20 11:30 02/11/20 12:08 02/11/20 17:15 02/11/20 18:10 Heparin Anti-Xa Act, Unfractionated 0.34 IU/mL (0.30-0.70) 0.30 IU/mL (0.30-0.70) Sodium Level 143 mmol/L (136-145) Potassium Level 2.9 mmol/L (3.5-5.1) Chloride Level 105 mmol/L (98-107) Carbon Dioxide Level 31 mmol/L (21-32) Anion Gap 7 (6-14) Blood Urea Nitrogen 27 mg/dL (7-20) Creatinine 1.5 mg/dL (0.6-1.0) Estimated GFR (Cockcroft-Gault) 45.4 Glucose Level 289 mg/dL (70-99) Calcium Level 7.4 mg/dL (8.5-10.1) Phosphorus Level 2.8 mg/dL (2.6-4.7) Magnesium Level 1.8 mg/dL (1.8-2.4) Troponin I Quantitative 0.130 ng/mL (0.000-0.055) Albumin 1.7 g/dL (3.4-5.0) Glucose (Fingerstick) 261 mg/dL (70-99) 79 mg/dL (70-99) Test 02/11/20 20:55 67/20 03:20 02/12/20 05:00 02/12/20 07:37 Glucose (Fingerstick) 141 mg/dL (70-99) 51 mg/dL (70-99) 59 mg/dL (70-99) White Blood Count 9.1 x10^3/uL (4.0-11.0) Red Blood Count 4.73 x10^6/uL (3.50-5.40) Hemoglobin 14.1 g/dL (12.0-15.5) Hematocrit 41.8 % (36.0-47.0) Mean Corpuscular Volume 88 fL (79-100) Mean Corpuscular Hemoglobin 30 pg (25-35) Mean Corpuscular Hemoglobin Concent 34 g/dL (31-37) Red Cell Distribution Width 15.7 % (11.5-14.5) Platelet Count 224 x10^3/uL (140-400) Neutrophils (%) (Auto) 74 % (31-73) Lymphocytes (%) (Auto) 18 % (24-48) Monocytes (%) (Auto) 7 % (0-9) Eosinophils (%) (Auto) 1 % (0-3) Basophils (%) (Auto) 1 % (0-3) Neutrophils # (Auto) 6.7 x10^3/uL (1.8-7.7) Lymphocytes # (Auto) 1.6 x10^3/uL (1.0-4.8) Monocytes # (Auto) 0.6 x10^3/uL (0.0-1.1) Eosinophils # (Auto) 0.1 x10^3/uL (0.0-0.7) Basophils # (Auto) 0.0 x10^3/uL (0.0-0.2) Heparin Anti-Xa Act, Unfractionated 0.21 IU/mL (0.30-0.70) Sodium Level 149 mmol/L (136-145) Potassium Level 2.6 mmol/L (3.5-5.1) Chloride Level 109 mmol/L (98-107) Carbon Dioxide Level 33 mmol/L (21-32) Anion Gap 7 (6-14) Blood Urea Nitrogen 22 mg/dL (7-20) Creatinine 1.2 mg/dL (0.6-1.0) Estimated GFR (Cockcroft-Gault) 58.8 BUN/Creatinine Ratio 18 (6-20) Glucose Level 77 mg/dL (70-99) Calcium Level 7.7 mg/dL (8.5-10.1) Magnesium Level 1.8 mg/dL (1.8-2.4) Total Bilirubin 0.2 mg/dL (0.2-1.0) Aspartate Amino Transf (AST/SGOT) 34 U/L (15-37) Alanine Aminotransferase (ALT/SGPT) 34 U/L (14-59) Alkaline Phosphatase 144 U/L (46-116) Troponin I Quantitative 0.108 ng/mL (0.000-0.055) Total Protein 4.7 g/dL (6.4-8.2) Albumin 1.5 g/dL (3.4-5.0) Albumin/Globulin Ratio 0.5 (1.0-1.7) Test 02/12/20 09:24 Glucose (Fingerstick) 127 mg/dL (70-99) Medications Active Scripts Medications Dose Route/Sig Max Daily Dose Days Date Category Dose Instructions Tizanidine Hcl 2 Mg Tablet 2 Mg PO PRN Q6HRS PRN 02/10/20 Reported Losartan Potassium 50 Mg Tablet 50 Mg PO DAILY 02/10/20 Reported Montelukast Sodium Tablet (Montelukast Sodium) 10 Mg Tablet 10 Mg PO HS 02/10/20 Reported Torsemide 20 Mg Tablet 2 Tab PO DAILY 02/10/20 Reported Furosemide 80 Mg Tablet 1 Tab PO BID 02/10/20 Reported Xarelto (Rivaroxaban) 20 Mg Tablet 1 Tab PO DAILY 30 02/10/20 Reported with food Lovastatin 40 Mg Tablet 40 Mg PO HS 02/09/18 Reported Humalog (Insulin Lispro) 100 Unit/1 Ml Insuln.pen 35 Unit SQ TIDWMEALS 02/09/18 Reported Lantus Solostar (Insulin Glargine,Hum.rec.anlog) 100 Unit/1 Ml Insuln.pen 65 Unit SQ QHS 02/09/18 Reported Gabapentin (Gabapentin) 300 Mg Capsule 300 Mg PO TID 02/09/18 Reported Amlodipine Besylate 10 Mg Tablet 10 Mg PO DAILY 02/09/18 Reported Comments CXR 02/11/2020 Impression: Mild basal infiltrates could be discoid atelectasis or pneumonia. LE U/S Impression: No evidence of DVT. Impression . IMPRESSION: 1. Dyspnea with generalized edema. Consistent with mild congestive heart failure, likely diastolic- improved 2. Hypertension, under suboptimal control. 3. Acute kidney injury versus chronic kidney disease. 4. Mildly increased troponin level. 5. Long history of tobacco use, suspect underlying chronic obstructive pulmonary disease. 6. Ongoing marijuana use. 7. Peripheral vascular disease with prior right below-knee amputation. Plan . RECOMMENDATIONS: 1. From a pulmonary standpoint, she is stable, remains on room air 2. P.r.n. Lasix. 3. Follow cardiology recommendations-- on heparin gtt, awaiting ECHO results 4. Follow nephrology recs 5. Outpatient PFTs. D/W NATALIE NIXON MD Feb 12, 2020 10:17
--- NOTE | 2020-02-12 11:10 | PDOC ---
PROGRESS NOTES History of Present Illness History of Present Illness IMPRESSION Acute on chronic systolic and diastolic heart failure NSTEMI hypokalemia , now severe on replacement HYPERTENSION MORBID OBESITY Hyperlipidemia possible pneumonia Mild basal infiltrates could be discoid atelectasis or pneumonia. suspect underlying chronic obstructive pulmonary disease. chronic renal disease . STAGE 3 diabetes hx noncompliance hxTHC abuse Occlusion of the right superficial femoral artery. Peripheral vascular disease with prior right below-knee amputation. 02/11 C/O RIGHT FOOT BEING COLD plan admitted. consult Pulmonary Medicine, consult Cardiology consult Nephrology. Replace potassium. IV Lasix . Trend labs, home meds, DVT prophylaxis. Full code. CVC BED , Cardiac monitoring. glucose control HEPARIN DRIP RIGHT LEG ARTERIAL DOPPLER 36 MIN pt exam, chart review,> 50% of time spent with exam, chart review, pt care coordination Vitals Vitals Vital Signs Date Time Temp Pulse Resp B/P (MAP) Pulse Ox O2 Delivery O2 Flow Rate FiO2 02/12/20 09:33 85 153/101 02/12/20 07:20 97.5 18 98 Room Air 97.5 Physical Exam Physical Exam GENERAL: No apparent distress. Alert and oriented. HEENT: Normal cephalic atraumatic, external auditory canals are patent. EYES: Extraocular muscles are intact, pupils are equally round and reactive to light and accommodation. MUSCULOSKELETAL: Well developed, well nourished, good range of motion. ENDOCRINE: No thyromegaly was palpated. LYMPHATICS: No cervical chain or axillary nodes were noted. HEMATOPOIETIC: No bruising. NECK: Supple, no JVD, no thyromegaly was noted. LUNGS: slight crackles. HEART: RRR, S1, S2 present. Peripheral pulses intact, no obvious murmurs were noted. ABDOMEN: Soft, nontender. Positive bowel sounds no organomegaly, normal bowel sounds. EXTREMITIES: She has a left BKA. She has right lower extremity swelling, at 2+ edema. NEUROLOGIC: Normal speech, normal tone. A & O x3, moves all extremities, no obvious focal deficits. PSYCHIATRIC: Normal affect, normal mood. Stable. SKIN: No ulcerations or rashes, good skin turgor, no jaundice. VASCULAR: Good capillary refill, neurovascular bundle appears to be intact. General: Alert, Oriented X3, Cooperative, No acute distress Heart: Regular rate Lungs: Clear Abdomen: Normal bowel sounds, Soft Extremities: Other (Bilateral edema) Skin: No breakdown Labs LABS Laboratory Tests Test 02/11/20 11:30 02/11/20 12:08 02/11/20 17:15 02/11/20 18:10 Heparin Anti-Xa Act, Unfractionated 0.34 IU/mL (0.30-0.70) 0.30 IU/mL (0.30-0.70) Sodium Level 143 mmol/L (136-145) Potassium Level 2.9 mmol/L (3.5-5.1) Chloride Level 105 mmol/L (98-107) Carbon Dioxide Level 31 mmol/L (21-32) Anion Gap 7 (6-14) Blood Urea Nitrogen 27 mg/dL (7-20) Creatinine 1.5 mg/dL (0.6-1.0) Estimated GFR (Cockcroft-Gault) 45.4 Glucose Level 289 mg/dL (70-99) Calcium Level 7.4 mg/dL (8.5-10.1) Phosphorus Level 2.8 mg/dL (2.6-4.7) Magnesium Level 1.8 mg/dL (1.8-2.4) Troponin I Quantitative 0.130 ng/mL (0.000-0.055) Albumin 1.7 g/dL (3.4-5.0) Glucose (Fingerstick) 261 mg/dL (70-99) 79 mg/dL (70-99) Test 02/11/20 20:55 02/12/20 03:20 02/12/20 05:00 02/12/20 07:37 Glucose (Fingerstick) 141 mg/dL (70-99) 51 mg/dL (70-99) 59 mg/dL (70-99) White Blood Count 9.1 x10^3/uL (4.0-11.0) Red Blood Count 4.73 x10^6/uL (3.50-5.40) Hemoglobin 14.1 g/dL (12.0-15.5) Hematocrit 41.8 % (36.0-47.0) Mean Corpuscular Volume 88 fL (79-100) Mean Corpuscular Hemoglobin 30 pg (25-35) Mean Corpuscular Hemoglobin Concent 34 g/dL (31-37) Red Cell Distribution Width 15.7 % (11.5-14.5) Platelet Count 224 x10^3/uL (140-400) Neutrophils (%) (Auto) 74 % (31-73) Lymphocytes (%) (Auto) 18 % (24-48) Monocytes (%) (Auto) 7 % (0-9) Eosinophils (%) (Auto) 1 % (0-3) Basophils (%) (Auto) 1 % (0-3) Neutrophils # (Auto) 6.7 x10^3/uL (1.8-7.7) Lymphocytes # (Auto) 1.6 x10^3/uL (1.0-4.8) Monocytes # (Auto) 0.6 x10^3/uL (0.0-1.1) Eosinophils # (Auto) 0.1 x10^3/uL (0.0-0.7) Basophils # (Auto) 0.0 x10^3/uL (0.0-0.2) Heparin Anti-Xa Act, Unfractionated 0.21 IU/mL (0.30-0.70) Sodium Level 149 mmol/L (136-145) Potassium Level 2.6 mmol/L (3.5-5.1) Chloride Level 109 mmol/L (98-107) Carbon Dioxide Level 33 mmol/L (21-32) Anion Gap 7 (6-14) Blood Urea Nitrogen 22 mg/dL (7-20) Creatinine 1.2 mg/dL (0.6-1.0) Estimated GFR (Cockcroft-Gault) 58.8 BUN/Creatinine Ratio 18 (6-20) Glucose Level 77 mg/dL (70-99) Calcium Level 7.7 mg/dL (8.5-10.1) Magnesium Level 1.8 mg/dL (1.8-2.4) Total Bilirubin 0.2 mg/dL (0.2-1.0) Aspartate Amino Transf (AST/SGOT) 34 U/L (15-37) Alanine Aminotransferase (ALT/SGPT) 34 U/L (14-59) Alkaline Phosphatase 144 U/L (46-116) Troponin I Quantitative 0.108 ng/mL (0.000-0.055) Total Protein 4.7 g/dL (6.4-8.2) Albumin 1.5 g/dL (3.4-5.0) Albumin/Globulin Ratio 0.5 (1.0-1.7) Test 02/12/20 09:24 Glucose (Fingerstick) 127 mg/dL (70-99) Assessment and Plan Assessmemt and Plan Problems Medical Problems: (1) NSTEMI (non-ST elevated myocardial infarction) Status: Acute Comment Review of Relevant I have reviewed the following items myesha (where applicable) has been applied. Labs Laboratory Tests Test 02/10/20 18:30 02/10/20 19:25 02/10/20 23:20 02/11/20 03:40 White Blood Count 10.7 x10^3/uL (4.0-11.0) 10.3 x10^3/uL (4.0-11.0) Red Blood Count 4.05 x10^6/uL (3.50-5.40) 4.07 x10^6/uL (3.50-5.40) Hemoglobin 12.1 g/dL (12.0-15.5) 12.3 g/dL (12.0-15.5) Hematocrit 35.4 % (36.0-47.0) 35.8 % (36.0-47.0) Mean Corpuscular Volume 87 fL (79-100) 88 fL (79-100) Mean Corpuscular Hemoglobin 30 pg (25-35) 30 pg (25-35) Mean Corpuscular Hemoglobin Concent 34 g/dL (31-37) 35 g/dL (31-37) Red Cell Distribution Width 15.5 % (11.5-14.5) 14.9 % (11.5-14.5) Platelet Count 240 x10^3/uL (140-400) 235 x10^3/uL (140-400) Neutrophils (%) (Auto) 80 % (31-73) Lymphocytes (%) (Auto) 13 % (24-48) Monocytes (%) (Auto) 6 % (0-9) Eosinophils (%) (Auto) 1 % (0-3) Basophils (%) (Auto) 1 % (0-3) Neutrophils # (Auto) 8.6 x10^3/uL (1.8-7.7) Lymphocytes # (Auto) 1.3 x10^3/uL (1.0-4.8) Monocytes # (Auto) 0.6 x10^3/uL (0.0-1.1) Eosinophils # (Auto) 0.1 x10^3/uL (0.0-0.7) Basophils # (Auto) 0.1 x10^3/uL (0.0-0.2) Prothrombin Time 12.9 SEC (11.7-14.0) Prothromb Time International Ratio 1.0 (0.8-1.1) Activated Partial Thromboplast Time 30 SEC (24-38) Sodium Level 143 mmol/L (136-145) Potassium Level 3.0 mmol/L (3.5-5.1) Chloride Level 105 mmol/L (98-107) Carbon Dioxide Level 29 mmol/L (21-32) Anion Gap 9 (6-14) Blood Urea Nitrogen 29 mg/dL (7-20) Creatinine 1.7 mg/dL (0.6-1.0) Estimated GFR (Cockcroft-Gault) 39.3 BUN/Creatinine Ratio 17 (6-20) Glucose Level 442 mg/dL (70-99) Calcium Level 7.4 mg/dL (8.5-10.1) Total Bilirubin 0.2 mg/dL (0.2-1.0) Aspartate Amino Transf (AST/SGOT) 56 U/L (15-37) Alanine Aminotransferase (ALT/SGPT) 39 U/L (14-59) Alkaline Phosphatase 149 U/L (46-116) Troponin I Quantitative 0.134 ng/mL (0.000-0.055) KZ-Idm-S-Type Natriuretic Peptide 9147 pg/mL (0-124) Total Protein 5.0 g/dL (6.4-8.2) Albumin 1.6 g/dL (3.4-5.0) Albumin/Globulin Ratio 0.5 (1.0-1.7) Urine Collection Type Unknown Urine Color Yellow Urine Clarity Cloudy Urine pH 6.0 (<5.0-8.0) Urine Specific [place] 1.025 (1.000-1.030) Urine Protein >=300 mg/dL (NEG-TRACE) Urine Glucose (UA) >=1000 mg/dL (NEG) Urine Ketones (Stick) Negative mg/dL (NEG) Urine Blood Small (NEG) Urine Nitrite Negative (NEG) Urine Bilirubin Negative (NEG) Urine Urobilinogen Dipstick 0.2 mg/dL (0.2 mg/dL) Urine Leukocyte Esterase Negative (NEG) Urine RBC Rare /HPF (0-2) Urine WBC 0 /HPF (0-4) Urine Squamous Epithelial Cells Few /LPF Urine Amorphous Sediment Present /HPF Urine Bacteria 0 /HPF (0-FEW) Glucose (Fingerstick) 482 mg/dL (70-99) Heparin Anti-Xa Act, Unfractionated 0.68 IU/mL (0.30-0.70) Test 02/11/20 07:44 02/11/20 11:30 02/11/20 12:08 02/11/20 17:15 Glucose (Fingerstick) 370 mg/dL (70-99) 261 mg/dL (70-99) 79 mg/dL (70-99) Heparin Anti-Xa Act, Unfractionated 0.34 IU/mL (0.30-0.70) Sodium Level 143 mmol/L (136-145) Potassium Level 2.9 mmol/L (3.5-5.1) Chloride Level 105 mmol/L (98-107) Carbon Dioxide Level 31 mmol/L (21-32) Anion Gap 7 (6-14) Blood Urea Nitrogen 27 mg/dL (7-20) Creatinine 1.5 mg/dL (0.6-1.0) Estimated GFR (Cockcroft-Gault) 45.4 Glucose Level 289 mg/dL (70-99) Calcium Level 7.4 mg/dL (8.5-10.1) Phosphorus Level 2.8 mg/dL (2.6-4.7) Magnesium Level 1.8 mg/dL (1.8-2.4) Troponin I Quantitative 0.130 ng/mL (0.000-0.055) Albumin 1.7 g/dL (3.4-5.0) Test 02/11/20 18:10 02/11/20 20:55 02/12/20 03:20 02/12/20 05:00 Heparin Anti-Xa Act, Unfractionated 0.30 IU/mL (0.30-0.70) 0.21 IU/mL (0.30-0.70) Glucose (Fingerstick) 141 mg/dL (70-99) 51 mg/dL (70-99) White Blood Count 9.1 x10^3/uL (4.0-11.0) Red Blood Count 4.73 x10^6/uL (3.50-5.40) Hemoglobin 14.1 g/dL (12.0-15.5) Hematocrit 41.8 % (36.0-47.0) Mean Corpuscular Volume 88 fL (79-100) Mean Corpuscular Hemoglobin 30 pg (25-35) Mean Corpuscular Hemoglobin Concent 34 g/dL (31-37) Red Cell Distribution Width 15.7 % (11.5-14.5) Platelet Count 224 x10^3/uL (140-400) Neutrophils (%) (Auto) 74 % (31-73) Lymphocytes (%) (Auto) 18 % (24-48) Monocytes (%) (Auto) 7 % (0-9) Eosinophils (%) (Auto) 1 % (0-3) Basophils (%) (Auto) 1 % (0-3) Neutrophils # (Auto) 6.7 x10^3/uL (1.8-7.7) Lymphocytes # (Auto) 1.6 x10^3/uL (1.0-4.8) Monocytes # (Auto) 0.6 x10^3/uL (0.0-1.1) Eosinophils # (Auto) 0.1 x10^3/uL (0.0-0.7) Basophils # (Auto) 0.0 x10^3/uL (0.0-0.2) Sodium Level 149 mmol/L (136-145) Potassium Level 2.6 mmol/L (3.5-5.1) Chloride Level 109 mmol/L (98-107) Carbon Dioxide Level 33 mmol/L (21-32) Anion Gap 7 (6-14) Blood Urea Nitrogen 22 mg/dL (7-20) Creatinine 1.2 mg/dL (0.6-1.0) Estimated GFR (Cockcroft-Gault) 58.8 BUN/Creatinine Ratio 18 (6-20) Glucose Level 77 mg/dL (70-99) Calcium Level 7.7 mg/dL (8.5-10.1) Magnesium Level 1.8 mg/dL (1.8-2.4) Total Bilirubin 0.2 mg/dL (0.2-1.0) Aspartate Amino Transf (AST/SGOT) 34 U/L (15-37) Alanine Aminotransferase (ALT/SGPT) 34 U/L (14-59) Alkaline Phosphatase 144 U/L (46-116) Troponin I Quantitative 0.108 ng/mL (0.000-0.055) Total Protein 4.7 g/dL (6.4-8.2) Albumin 1.5 g/dL (3.4-5.0) Albumin/Globulin Ratio 0.5 (1.0-1.7) Test 02/12/20 07:37 02/12/20 09:24 Glucose (Fingerstick) 59 mg/dL (70-99) 127 mg/dL (70-99) Laboratory Tests Test 02/11/20 11:30 02/11/20 12:08 02/11/20 17:15 02/11/20 18:10 Heparin Anti-Xa Act, Unfractionated 0.34 IU/mL (0.30-0.70) 0.30 IU/mL (0.30-0.70) Sodium Level 143 mmol/L (136-145) Potassium Level 2.9 mmol/L (3.5-5.1) Chloride Level 105 mmol/L (98-107) Carbon Dioxide Level 31 mmol/L (21-32) Anion Gap 7 (6-14) Blood Urea Nitrogen 27 mg/dL (7-20) Creatinine 1.5 mg/dL (0.6-1.0) Estimated GFR (Cockcroft-Gault) 45.4 Glucose Level 289 mg/dL (70-99) Calcium Level 7.4 mg/dL (8.5-10.1) Phosphorus Level 2.8 mg/dL (2.6-4.7) Magnesium Level 1.8 mg/dL (1.8-2.4) Troponin I Quantitative 0.130 ng/mL (0.000-0.055) Albumin 1.7 g/dL (3.4-5.0) Glucose (Fingerstick) 261 mg/dL (70-99) 79 mg/dL (70-99) Test 02/11/20 20:55 02/12/20 03:20 02/12/20 05:00 02/12/20 07:37 Glucose (Fingerstick) 141 mg/dL (70-99) 51 mg/dL (70-99) 59 mg/dL (70-99) White Blood Count 9.1 x10^3/uL (4.0-11.0) Red Blood Count 4.73 x10^6/uL (3.50-5.40) Hemoglobin 14.1 g/dL (12.0-15.5) Hematocrit 41.8 % (36.0-47.0) Mean Corpuscular Volume 88 fL (79-100) Mean Corpuscular Hemoglobin 30 pg (25-35) Mean Corpuscular Hemoglobin Concent 34 g/dL (31-37) Red Cell Distribution Width 15.7 % (11.5-14.5) Platelet Count 224 x10^3/uL (140-400) Neutrophils (%) (Auto) 74 % (31-73) Lymphocytes (%) (Auto) 18 % (24-48) Monocytes (%) (Auto) 7 % (0-9) Eosinophils (%) (Auto) 1 % (0-3) Basophils (%) (Auto) 1 % (0-3) Neutrophils # (Auto) 6.7 x10^3/uL (1.8-7.7) Lymphocytes # (Auto) 1.6 x10^3/uL (1.0-4.8) Monocytes # (Auto) 0.6 x10^3/uL (0.0-1.1) Eosinophils # (Auto) 0.1 x10^3/uL (0.0-0.7) Basophils # (Auto) 0.0 x10^3/uL (0.0-0.2) Heparin Anti-Xa Act, Unfractionated 0.21 IU/mL (0.30-0.70) Sodium Level 149 mmol/L (136-145) Potassium Level 2.6 mmol/L (3.5-5.1) Chloride Level 109 mmol/L (98-107) Carbon Dioxide Level 33 mmol/L (21-32) Anion Gap 7 (6-14) Blood Urea Nitrogen 22 mg/dL (7-20) Creatinine 1.2 mg/dL (0.6-1.0) Estimated GFR (Cockcroft-Gault) 58.8 BUN/Creatinine Ratio 18 (6-20) Glucose Level 77 mg/dL (70-99) Calcium Level 7.7 mg/dL (8.5-10.1) Magnesium Level 1.8 mg/dL (1.8-2.4) Total Bilirubin 0.2 mg/dL (0.2-1.0) Aspartate Amino Transf (AST/SGOT) 34 U/L (15-37) Alanine Aminotransferase (ALT/SGPT) 34 U/L (14-59) Alkaline Phosphatase 144 U/L (46-116) Troponin I Quantitative 0.108 ng/mL (0.000-0.055) Total Protein 4.7 g/dL (6.4-8.2) Albumin 1.5 g/dL (3.4-5.0) Albumin/Globulin Ratio 0.5 (1.0-1.7) Test 02/12/20 09:24 Glucose (Fingerstick) 127 mg/dL (70-99) Medications Current Medications Aspirin (Aspirin Chewable) 324 mg 1X ONCE PO Last administered on 02/10/20 20: 36; Start 02/10/20 at 20:00; Stop 02/10/20 at 20:01; Status DC Heparin Sodium (Porcine) (Heparin Sodium) 4,000 unit 1X ONCE IV Last administered on 02/10/20 21:31; Start 02/10/20 at 21:30; Stop 02/10/20 at 21:31; Status DC Heparin Sodium/ Dextrose 250 ml @ 0 mls/hr CONT IV ; Start 02/10/20 at 21:15; Status UNV Heparin Sodium/ Dextrose 250 ml @ 0 mls/hr CONT PRN IV PER PROTOCOL Last administered on 02/11/20at 18:31; Start 02/10/20 at 21:30 Heparin Sodium (Porcine) (Heparin Sodium) 2,950 unit PRN Q6HRS PRN IV FOR UFH LEVEL LESS THAN 0.2; Start 02/10/20 at 21:30 Info (Anti-Coagulation Monitoring By Pharmacy) 1 each PRN DAILY PRN MC SEE COMMENTS Last administered on 02/11/20at 01:59; Start 02/10/20 at 21:30 Insulin Glargine (Lantus Syringe) 65 unit QHS SQ Last administered on 02/11/20at 21:19; Start 02/11/20 at 01:00 Dextrose (Dextrose 50%-Water Syringe) 12.5 gm PRN Q15MIN PRN IV SEE COMMENTS; Start 02/11/20 at 00:30 Insulin Human Lispro (HumaLOG) 35 units TIDWMEALS SQ Last administered on 02/11/20at 13:24; Start 02/11/20 at 08:00 Insulin Human Lispro (HumaLOG) 20 units 1X ONCE SQ Last administered on 02/11/20at 00:40; Start 02/11/20 at 01:00; Stop 02/11/20 at 01:01; Status DC Fentanyl Citrate (Fentanyl 2ml Vial) 50 mcg PRN Q2HR PRN IVP SEVERE PAIN 7-10 Last administered on 02/12/20at 00:48; Start 02/11/20 at 00:30 Fluconazole (Diflucan) 150 mg 1X ONCE PO Last administered on 02/11/20at 13:11; Start 02/11/20 at 12:00; Stop 02/11/20 at 12:01; Status DC Phenazopyridine HCl (Pyridium) 200 mg PRN Q6HRS PRN PO URINARY PAIN Last ad ministered on 02/12/20at 09:33; Start 02/11/20 at 11:45 Potassium Chloride (Klor-Con) 20 meq 1X ONCE PO Last administered on 02/11/20 13:11; Start 02/11/20 at 12:00; Stop 02/11/20 at 12:01; Status DC Losartan Potassium (Cozaar) 50 mg DAILY PO Last administered on 02/12/20 09:33; Start 02/11/20 at 12:00 Torsemide (Demadex) 20 mg BID PO Last administered on 02/12/20at 09:36; Start 02/11/20 at 12:00 Potassium Chloride (Klor-Con) 30 meq DAILYWBKFT PO ; Start 02/11/20 at 13:00; Stop 02/11/20 at 15:28; Status DC Potassium Chloride (Klor-Con) 30 meq 1X PO ; Start 02/11/20 at 16:00 Potassium Chloride (Klor-Con) 40 meq 1X ONCE PO Last administered on 02/12/20at 06:45; Start 02/12/20 at 06:30; Stop 02/12/20 at 06:31; Status DC Potassium Chloride (Klor-Con) 40 meq 1X ONCE PO Last administered on 02/12/20at 09:37; Start 02/12/20 at 08:30; Stop 02/12/20 at 08:31; Status DC Potassium Chloride (Klor-Con) 40 meq 1X ONCE PO ; Start 02/12/20 at 10:30; Stop 02/12/20 at 10:31; Status DC Active Scripts Active Reported Tizanidine Hcl 2 Mg Tablet 2 Mg PO PRN Q6HRS PRN Losartan Potassium 50 Mg Tablet 50 Mg PO DAILY Montelukast Sodium Tablet (Montelukast Sodium) 10 Mg Tablet 10 Mg PO HS Torsemide 20 Mg Tablet 2 Tab PO DAILY Furosemide 80 Mg Tablet 1 Tab PO BID Xarelto (Rivaroxaban) 20 Mg Tablet 1 Tab PO DAILY 30 Days with food Lovastatin 40 Mg Tablet 40 Mg PO HS Humalog (Insulin Lispro) 100 Unit/1 Ml Insuln.pen 35 Unit SQ TIDWMEALS Lantus Solostar (Insulin Glargine,Hum.rec.anlog) 100 Unit/1 Ml Insuln.pen 65 Unit SQ QHS Gabapentin (Gabapentin) 300 Mg Capsule 300 Mg PO TID Amlodipine Besylate 10 Mg Tablet 10 Mg PO DAILY Vitals/I & O Vital Sign - Last 24 Hours 02/11/20 02/11/20 02/11/20 02/11/20 11:30 13:10 13:12 13:42 Temp 97.9 97.9 Pulse 80 80 Resp 18 B/P (MAP) 176/89 (118) 176/89 Pulse Ox 96 96 96 O2 Delivery Room Air Room Air Room Air 02/11/20 02/11/20 02/11/20 02/11/20 15:30 19:02 19:55 20:00 Temp 97.8 98.5 97.8 98.5 Pulse 78 83 Resp 18 16 20 B/P (MAP) 179/88 (118) 177/99 (125) Pulse Ox 95 97 O2 Delivery Room Air Room Air Room Air Room Air 02/11/20 02/11/20 02/12/20 02/12/20 20:25 22:03 00:48 03:20 Temp 98.5 98.5 Pulse 83 72 Resp 20 16 20 16 B/P (MAP) 184/96 (125) 167/97 (120) Pulse Ox 94 94 O2 Delivery Room Air Room Air Room Air Room Air 02/12/20 02/12/20 07:20 09:33 Temp 97.5 97.5 Pulse 85 85 Resp 18 B/P (MAP) 153/101 (118) 153/101 Pulse Ox 98 O2 Delivery Room Air Intake and Output 02/11/20 02/11/20 02/12/20 15:00 23:00 07:00 Intake Total 0 ml 0 ml Output Total 1050 ml 3100 ml 2950 ml Balance -1050 ml -3100 ml -2950 ml WENDY NELSON MD Feb 12, 2020 11:10
--- NOTE | 2020-02-12 12:03 | PDOC ---
Renal-Progress Notes Subjective Notes Notes FEELING BETTER History of Present Illness Hx of present illness STABLE Vitals Vitals Vital Signs Date Time Temp Pulse Resp B/P (MAP) Pulse Ox O2 Delivery O2 Flow Rate FiO2 02/12/20 11:20 98.2 91 20 171/95 (120) 99 Room Air 98.2 Weight Weight [ ] I.O. Intake and Output Intake and Output 02/12/20 07:00 Intake Total 0 ml Output Total 7100 ml Balance -7100 ml Intake Oral 0 ml Output Urine Total 7100 ml # Bowel Movements 1 Labs Labs Laboratory Tests Test 02/11/20 12:08 02/11/20 17:15 02/11/20 18:10 02/11/20 20:55 Glucose (Fingerstick) 261 mg/dL (70-99) 79 mg/dL (70-99) 141 mg/dL (70-99) Heparin Anti-Xa Act, Unfractionated 0.30 IU/mL (0.30-0.70) Test 02/12/20 03:20 02/12/20 05:00 02/12/20 07:37 02/12/20 09:24 Glucose (Fingerstick) 51 mg/dL (70-99) 59 mg/dL (70-99) 127 mg/dL (70-99) White Blood Count 9.1 x10^3/uL (4.0-11.0) Red Blood Count 4.73 x10^6/uL (3.50-5.40) Hemoglobin 14.1 g/dL (12.0-15.5) Hematocrit 41.8 % (36.0-47.0) Mean Corpuscular Volume 88 fL (79-100) Mean Corpuscular Hemoglobin 30 pg (25-35) Mean Corpuscular Hemoglobin Concent 34 g/dL (31-37) Red Cell Distribution Width 15.7 % (11.5-14.5) Platelet Count 224 x10^3/uL (140-400) Neutrophils (%) (Auto) 74 % (31-73) Lymphocytes (%) (Auto) 18 % (24-48) Monocytes (%) (Auto) 7 % (0-9) Eosinophils (%) (Auto) 1 % (0-3) Basophils (%) (Auto) 1 % (0-3) Neutrophils # (Auto) 6.7 x10^3/uL (1.8-7.7) Lymphocytes # (Auto) 1.6 x10^3/uL (1.0-4.8) Monocytes # (Auto) 0.6 x10^3/uL (0.0-1.1) Eosinophils # (Auto) 0.1 x10^3/uL (0.0-0.7) Basophils # (Auto) 0.0 x10^3/uL (0.0-0.2) Heparin Anti-Xa Act, Unfractionated 0.21 IU/mL (0.30-0.70) Sodium Level 149 mmol/L (136-145) Potassium Level 2.6 mmol/L (3.5-5.1) Chloride Level 109 mmol/L (98-107) Carbon Dioxide Level 33 mmol/L (21-32) Anion Gap 7 (6-14) Blood Urea Nitrogen 22 mg/dL (7-20) Creatinine 1.2 mg/dL (0.6-1.0) Estimated GFR (Cockcroft-Gault) 58.8 BUN/Creatinine Ratio 18 (6-20) Glucose Level 77 mg/dL (70-99) Calcium Level 7.7 mg/dL (8.5-10.1) Magnesium Level 1.8 mg/dL (1.8-2.4) Total Bilirubin 0.2 mg/dL (0.2-1.0) Aspartate Amino Transf (AST/SGOT) 34 U/L (15-37) Alanine Aminotransferase (ALT/SGPT) 34 U/L (14-59) Alkaline Phosphatase 144 U/L (46-116) Troponin I Quantitative 0.108 ng/mL (0.000-0.055) Total Protein 4.7 g/dL (6.4-8.2) Albumin 1.5 g/dL (3.4-5.0) Albumin/Globulin Ratio 0.5 (1.0-1.7) Review of Systems Constitutional: yes: alert, oriented Ears/Nose/Throat: Yes: no symptom reported Eyes: Yes: no symptom reported Pulmonary: Yes no symptom reported Cardiovascular: Yes no symptom reported Genitourinary: Yes: no symptom reported Musculoskeletal: Yes: no symptom reported Skin: Yes no symptom reported Psychiatric/Neurological: Yes: no symptom reported Endocrine: Yes: no symptom reported Physical Exam General Appearance: no apparent distress Skin: warm Respiratory: bilateral CTA Heart: S1S2 Abdomen: soft, bowel sounds present Genitourinary: bladder flat Extremities: pulses present Neurology: alert, oriented Musculoskeletal: Stiffness Assessment Assessment IMP CKD STAGE 4 HYPOKALEMIA DYSPNEA GENERALIZED EDEMA UNCONTROLLED HTN PROB COPD OBESITY PAD DM II PLAN REPLACE K CONT TORSEMIDE INCREASE LOSARTAN ECHOCARDIOGRAM PENDING CARDIOLOGY EVALUATION WILL FOLLOW ROSANNE OROZCO MD Feb 12, 2020 12:03
[2020-02-12] MEDS ORDERED: LOSARTAN POTASSIUM 25 MG TABLET. PO ONE (14:30)
--- NOTE | 2020-02-12 14:38 | RAD ---
Left lower extremity arterial duplex Doppler ultrasound HISTORY: Severe peripheral vascular disease. FINDINGS: There are mild calcifications of the vessels throughout the leg, no bulky plaque or critical stenosis by color Doppler sonography evident. There are biphasic waveforms with brisk systolic upstrokes and normal velocities without direct or indirect evidence of significant stenosis or occlusion of the left common femoral artery, profunda femoral artery, superficial femoral artery, popliteal artery, posterior tibial artery, anterior tibial artery and dorsalis pedis artery. No flow within the peroneal artery could be documented occlusion is not excluded. Calf soft tissue edema is present. IMPRESSION: No flow within the peroneal artery couldn't be detected, this vessel could be occluded. There is calf soft tissue edema present. No evidence of significant stenosis or occlusion of the other left leg arteries. Electronically signed by: Major Meyers MD (02/12/2020 2:36 PM) [id number]
--- NOTE | 2020-02-12 15:02 | PDOC ---
PROGRESS NOTES Subjective Subjective Patient seen and examined Objective Objective Vital Signs Date Time Temp Pulse Resp B/P (MAP) Pulse Ox O2 Delivery O2 Flow Rate FiO2 02/12/20 13:03 99 Room Air 02/12/20 11:20 98.2 91 20 171/95 (120) 98.2 Intake and Output 02/12/20 06:59 Intake Total 0 ml Output Total 7100 ml Balance -7100 ml Intake Oral 0 ml Output Urine Total 7100 ml # Bowel Movements 1 Physical Exam Abdomen: Normal bowel sounds Heart: Regular rate General: mild distress Lungs: Other (Mildly decreased breath sounds) Assessment Assessment Problems Medical Problems: (1) NSTEMI (non-ST elevated myocardial infarction) Status: Acute 1. Generalized weakness. Multiple medical problems as above. From a cardiac viewpoint patient with minimally elevated troponin at 0.134 in the setting of an elevated troponin. We will continue present medical treatment. Echocardiogram is pending. 2. Extremity swelling improved. Initial creatinine of 1.5. Renal evaluation in progress. 3. Peripheral vascular disease. 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 Continue present medications and work-up. 4. Diabetes mellitus. Poor control. 5. Hypertension. We will continue to monitor. 6. COPD with continued tobacco abuse. 7. Chronic kidney disease. Initial creatinine of 1.5. As per renal. Comment Review of Relevant I have reviewed the following items myesha (where applicable) has been applied. Labs Laboratory Tests Test 02/10/20 18:30 02/10/20 19:25 02/10/20 23:20 02/11/20 03:40 White Blood Count 10.7 x10^3/uL (4.0-11.0) 10.3 x10^3/uL (4.0-11.0) Red Blood Count 4.05 x10^6/uL (3.50-5.40) 4.07 x10^6/uL (3.50-5.40) Hemoglobin 12.1 g/dL (12.0-15.5) 12.3 g/dL (12.0-15.5) Hematocrit 35.4 % (36.0-47.0) 35.8 % (36.0-47.0) Mean Corpuscular Volume 87 fL (79-100) 88 fL (79-100) Mean Corpuscular Hemoglobin 30 pg (25-35) 30 pg (25-35) Mean Corpuscular Hemoglobin Concent 34 g/dL (31-37) 35 g/dL (31-37) Red Cell Distribution Width 15.5 % (11.5-14.5) 14.9 % (11.5-14.5) Platelet Count 240 x10^3/uL (140-400) 235 x10^3/uL (140-400) Neutrophils (%) (Auto) 80 % (31-73) Lymphocytes (%) (Auto) 13 % (24-48) Monocytes (%) (Auto) 6 % (0-9) Eosinophils (%) (Auto) 1 % (0-3) Basophils (%) (Auto) 1 % (0-3) Neutrophils # (Auto) 8.6 x10^3/uL (1.8-7.7) Lymphocytes # (Auto) 1.3 x10^3/uL (1.0-4.8) Monocytes # (Auto) 0.6 x10^3/uL (0.0-1.1) Eosinophils # (Auto) 0.1 x10^3/uL (0.0-0.7) Basophils # (Auto) 0.1 x10^3/uL (0.0-0.2) Prothrombin Time 12.9 SEC (11.7-14.0) Prothromb Time International Ratio 1.0 (0.8-1.1) Activated Partial Thromboplast Time 30 SEC (24-38) Sodium Level 143 mmol/L (136-145) Potassium Level 3.0 mmol/L (3.5-5.1) Chloride Level 105 mmol/L (98-107) Carbon Dioxide Level 29 mmol/L (21-32) Anion Gap 9 (6-14) Blood Urea Nitrogen 29 mg/dL (7-20) Creatinine 1.7 mg/dL (0.6-1.0) Estimated GFR (Cockcroft-Gault) 39.3 BUN/Creatinine Ratio 17 (6-20) Glucose Level 442 mg/dL (70-99) Calcium Level 7.4 mg/dL (8.5-10.1) Total Bilirubin 0.2 mg/dL (0.2-1.0) Aspartate Amino Transf (AST/SGOT) 56 U/L (15-37) Alanine Aminotransferase (ALT/SGPT) 39 U/L (14-59) Alkaline Phosphatase 149 U/L (46-116) Troponin I Quantitative 0.134 ng/mL (0.000-0.055) ZH-Rni-S-Type Natriuretic Peptide 9147 pg/mL (0-124) Total Protein 5.0 g/dL (6.4-8.2) Albumin 1.6 g/dL (3.4-5.0) Albumin/Globulin Ratio 0.5 (1.0-1.7) Urine Collection Type Unknown Urine Color Yellow Urine Clarity Cloudy Urine pH 6.0 (<5.0-8.0) Urine Specific [place] 1.025 (1.000-1.030) Urine Protein >=300 mg/dL (NEG-TRACE) Urine Glucose (UA) >=1000 mg/dL (NEG) Urine Ketones (Stick) Negative mg/dL (NEG) Urine Blood Small (NEG) Urine Nitrite Negative (NEG) Urine Bilirubin Negative (NEG) Urine Urobilinogen Dipstick 0.2 mg/dL (0.2 mg/dL) Urine Leukocyte Esterase Negative (NEG) Urine RBC Rare /HPF (0-2) Urine WBC 0 /HPF (0-4) Urine Squamous Epithelial Cells Few /LPF Urine Amorphous Sediment Present /HPF Urine Bacteria 0 /HPF (0-FEW) Glucose (Fingerstick) 482 mg/dL (70-99) Heparin Anti-Xa Act, Unfractionated 0.68 IU/mL (0.30-0.70) Test 02/11/20 07:44 02/11/20 11:30 02/11/20 12:08 02/11/20 17:15 Glucose (Fingerstick) 370 mg/dL (70-99) 261 mg/dL (70-99) 79 mg/dL (70-99) Heparin Anti-Xa Act, Unfractionated 0.34 IU/mL (0.30-0.70) Sodium Level 143 mmol/L (136-145) Potassium Level 2.9 mmol/L (3.5-5.1) Chloride Level 105 mmol/L (98-107) Carbon Dioxide Level 31 mmol/L (21-32) Anion Gap 7 (6-14) Blood Urea Nitrogen 27 mg/dL (7-20) Creatinine 1.5 mg/dL (0.6-1.0) Estimated GFR (Cockcroft-Gault) 45.4 Glucose Level 289 mg/dL (70-99) Calcium Level 7.4 mg/dL (8.5-10.1) Phosphorus Level 2.8 mg/dL (2.6-4.7) Magnesium Level 1.8 mg/dL (1.8-2.4) Troponin I Quantitative 0.130 ng/mL (0.000-0.055) Albumin 1.7 g/dL (3.4-5.0) Test 02/11/20 18:10 02/11/20 20:55 02/12/20 03:20 02/12/20 05:00 Heparin Anti-Xa Act, Unfractionated 0.30 IU/mL (0.30-0.70) 0.21 IU/mL (0.30-0.70) Glucose (Fingerstick) 141 mg/dL (70-99) 51 mg/dL (70-99) White Blood Count 9.1 x10^3/uL (4.0-11.0) Red Blood Count 4.73 x10^6/uL (3.50-5.40) Hemoglobin 14.1 g/dL (12.0-15.5) Hematocrit 41.8 % (36.0-47.0) Mean Corpuscular Volume 88 fL (79-100) Mean Corpuscular Hemoglobin 30 pg (25-35) Mean Corpuscular Hemoglobin Concent 34 g/dL (31-37) Red Cell Distribution Width 15.7 % (11.5-14.5) Platelet Count 224 x10^3/uL (140-400) Neutrophils (%) (Auto) 74 % (31-73) Lymphocytes (%) (Auto) 18 % (24-48) Monocytes (%) (Auto) 7 % (0-9) Eosinophils (%) (Auto) 1 % (0-3) Basophils (%) (Auto) 1 % (0-3) Neutrophils # (Auto) 6.7 x10^3/uL (1.8-7.7) Lymphocytes # (Auto) 1.6 x10^3/uL (1.0-4.8) Monocytes # (Auto) 0.6 x10^3/uL (0.0-1.1) Eosinophils # (Auto) 0.1 x10^3/uL (0.0-0.7) Basophils # (Auto) 0.0 x10^3/uL (0.0-0.2) Sodium Level 149 mmol/L (136-145) Potassium Level 2.6 mmol/L (3.5-5.1) Chloride Level 109 mmol/L (98-107) Carbon Dioxide Level 33 mmol/L (21-32) Anion Gap 7 (6-14) Blood Urea Nitrogen 22 mg/dL (7-20) Creatinine 1.2 mg/dL (0.6-1.0) Estimated GFR (Cockcroft-Gault) 58.8 BUN/Creatinine Ratio 18 (6-20) Glucose Level 77 mg/dL (70-99) Calcium Level 7.7 mg/dL (8.5-10.1) Magnesium Level 1.8 mg/dL (1.8-2.4) Total Bilirubin 0.2 mg/dL (0.2-1.0) Aspartate Amino Transf (AST/SGOT) 34 U/L (15-37) Alanine Aminotransferase (ALT/SGPT) 34 U/L (14-59) Alkaline Phosphatase 144 U/L (46-116) Troponin I Quantitative 0.108 ng/mL (0.000-0.055) Total Protein 4.7 g/dL (6.4-8.2) Albumin 1.5 g/dL (3.4-5.0) Albumin/Globulin Ratio 0.5 (1.0-1.7) Test 02/12/20 07:37 02/12/20 09:24 02/12/20 12:39 Glucose (Fingerstick) 59 mg/dL (70-99) 127 mg/dL (70-99) 88 mg/dL (70-99) Laboratory Tests Test 02/11/20 17:15 02/11/20 18:10 02/11/20 20:55 02/12/20 03:20 Glucose (Fingerstick) 79 mg/dL (70-99) 141 mg/dL (70-99) 51 mg/dL (70-99) Heparin Anti-Xa Act, Unfractionated 0.30 IU/mL (0.30-0.70) Test 02/12/20 05:00 02/12/20 07:37 6/7/20 09:24 02/12/20 12:39 White Blood Count 9.1 x10^3/uL (4.0-11.0) Red Blood Count 4.73 x10^6/uL (3.50-5.40) Hemoglobin 14.1 g/dL (12.0-15.5) Hematocrit 41.8 % (36.0-47.0) Mean Corpuscular Volume 88 fL (79-100) Mean Corpuscular Hemoglobin 30 pg (25-35) Mean Corpuscular Hemoglobin Concent 34 g/dL (31-37) Red Cell Distribution Width 15.7 % (11.5-14.5) Platelet Count 224 x10^3/uL (140-400) Neutrophils (%) (Auto) 74 % (31-73) Lymphocytes (%) (Auto) 18 % (24-48) Monocytes (%) (Auto) 7 % (0-9) Eosinophils (%) (Auto) 1 % (0-3) Basophils (%) (Auto) 1 % (0-3) Neutrophils # (Auto) 6.7 x10^3/uL (1.8-7.7) Lymphocytes # (Auto) 1.6 x10^3/uL (1.0-4.8) Monocytes # (Auto) 0.6 x10^3/uL (0.0-1.1) Eosinophils # (Auto) 0.1 x10^3/uL (0.0-0.7) Basophils # (Auto) 0.0 x10^3/uL (0.0-0.2) Heparin Anti-Xa Act, Unfractionated 0.21 IU/mL (0.30-0.70) Sodium Level 149 mmol/L (136-145) Potassium Level 2.6 mmol/L (3.5-5.1) Chloride Level 109 mmol/L (98-107) Carbon Dioxide Level 33 mmol/L (21-32) Anion Gap 7 (6-14) Blood Urea Nitrogen 22 mg/dL (7-20) Creatinine 1.2 mg/dL (0.6-1.0) Estimated GFR (Cockcroft-Gault) 58.8 BUN/Creatinine Ratio 18 (6-20) Glucose Level 77 mg/dL (70-99) Calcium Level 7.7 mg/dL (8.5-10.1) Magnesium Level 1.8 mg/dL (1.8-2.4) Total Bilirubin 0.2 mg/dL (0.2-1.0) Aspartate Amino Transf (AST/SGOT) 34 U/L (15-37) Alanine Aminotransferase (ALT/SGPT) 34 U/L (14-59) Alkaline Phosphatase 144 U/L (46-116) Troponin I Quantitative 0.108 ng/mL (0.000-0.055) Total Protein 4.7 g/dL (6.4-8.2) Albumin 1.5 g/dL (3.4-5.0) Albumin/Globulin Ratio 0.5 (1.0-1.7) Glucose (Fingerstick) 59 mg/dL (70-99) 127 mg/dL (70-99) 88 mg/dL (70-99) Medications Current Medications Aspirin (Aspirin Chewable) 324 mg 1X ONCE PO Last administered on 02/10/20 20:36; Start 02/10/20 at 20:00; Stop 02/10/20 at 20:01; Status DC Heparin Sodium (Porcine) (Heparin Sodium) 4,000 unit 1X ONCE IV Last administered on 02/10/20at 21:31; Start 02/10/20 at 21:30; Stop 02/10/20 at 21:31; Status DC Heparin Sodium/ Dextrose 250 ml @ 0 mls/hr CONT IV ; Start 02/10/20 at 21:15; Status UNV Heparin Sodium/ Dextrose 250 ml @ 0 mls/hr CONT PRN IV PER PROTOCOL Last administered on 02/11/20at 18:31; Start 02/10/20 at 21:30 Heparin Sodium (Porcine) (Heparin Sodium) 2,950 unit PRN Q6HRS PRN IV FOR UFH LEVEL LESS THAN 0.2; Start 02/10/20 at 21:30 Info (Anti-Coagulation Monitoring By Pharmacy) 1 each PRN DAILY PRN MC SEE COMMENTS Last administered on 02/11/20at 01:59; Start 02/10/20 at 21:30 Insulin Glargine (Lantus Syringe) 65 unit QHS SQ Last administered on 02/11/20at 21:19; Start 02/11/20 at 01:00 Dextrose (Dextrose 50%-Water Syringe) 12.5 gm PRN Q15MIN PRN IV SEE COMMENTS; Start 02/11/20 at 00:30 Insulin Human Lispro (HumaLOG) 35 units TIDWMEALS SQ Last administered on 02/11/20at 13:24; Start 02/11/20 at 08:00 Insulin Human Lispro (HumaLOG) 20 units 1X ONCE SQ Last administered on 02/11/20at 00:40; Start 02/11/20 at 01:00; Stop 02/11/20 at 01:01; Status DC Fentanyl Citrate (Fentanyl 2ml Vial) 50 mcg PRN Q2HR PRN IVP SEVERE PAIN 7-10 Last administered on 02/12/20at 12:33; Start 02/11/20 at 00:30 Fluconazole (Diflucan) 150 mg 1X ONCE PO Last administered on 02/11/20at 13:11; Start 02/11/20 at 12:00; Stop 02/11/20 at 12:01; Status DC Phenazopyridine HCl (Pyridium) 200 mg PRN Q6HRS PRN PO URINARY PAIN Last administered on 02/12/20at 09:33; Start 02/11/20 at 11:45 Potassium Chloride (Klor-Con) 20 meq 1X ONCE PO Last administered on 02/11/20at 13:11; Start 02/11/20 at 12:00; Stop 02/11/20 at 12:01; Status DC Losartan Potassium (Cozaar) 50 mg DAILY PO Last administered on 02/12/20at 09:33; Start 02/11/20 at 12:00; Stop 02/12/20 at 14:33; Status DC Torsemide (Demadex) 20 mg BID PO Last administered on 02/12/20at 09:36; Start 02/11/20 at 12:00 Potassium Chloride (Klor-Con) 30 meq DAILYWBKFT PO ; Start 02/11/20 at 13:00; Stop 02/11/20 at 15:28; Status DC Potassium Chloride (Klor-Con) 30 meq 1X PO ; Start 02/11/20 at 16:00 Potassium Chloride (Klor-Con) 40 meq 1X ONCE PO Last administered on 02/12/20at 06:45; Start 02/12/20 at 06:30; Stop 02/12/20 at 06:31; Status DC Potassium Chloride (Klor-Con) 40 meq 1X ONCE PO Last administered on 02/12/20at 09:37; Start 02/12/20 at 08:30; Stop 02/12/20 at 08:31; Status DC Potassium Chloride (Klor-Con) 40 meq 1X ONCE PO ; Start 02/12/20 at 10:30; Stop 02/12/20 at 10:31; Status DC Losartan Potassium (Cozaar) 75 mg DAILY PO ; Start 02/13/20 at 09:00 Losartan Potassium (Cozaar) 25 mg 1X ONCE PO ; Start 02/12/20 at 14:30; Stop 02/12/20 at 14:38; Status DC Active Scripts Active Reported Tizanidine Hcl 2 Mg Tablet 2 Mg PO PRN Q6HRS PRN Losartan Potassium 50 Mg Tablet 50 Mg PO DAILY Montelukast Sodium Tablet (Montelukast Sodium) 10 Mg Tablet 10 Mg PO HS Torsemide 20 Mg Tablet 2 Tab PO DAILY Furosemide 80 Mg Tablet 1 Tab PO BID Xarelto (Rivaroxaban) 20 Mg Tablet 1 Tab PO DAILY 30 Days with food Lovastatin 40 Mg Tablet 40 Mg PO HS Humalog (Insulin Lispro) 100 Unit/1 Ml Insuln.pen 35 Unit SQ TIDWMEALS Lantus Solostar (Insulin Glargine,Hum.rec.anlog) 100 Unit/1 Ml Insuln.pen 65 Unit SQ QHS Gabapentin (Gabapentin) 300 Mg Capsule 300 Mg PO TID Amlodipine Besylate 10 Mg Tablet 10 Mg PO DAILY Vitals/I & O Vital Sign - Last 24 Hours 02/11/20 02/11/20 02/11/20 02/11/20 15:30 19:02 19:55 20:00 Temp 97.8 98.5 97.8 98.5 Pulse 78 83 Resp 18 16 20 B/P (MAP) 179/88 (118) 177/99 (125) Pulse Ox 95 97 O2 Delivery Room Air Room Air Room Air Room Air 02/11/20 02/11/20 02/12/20 02/12/20 20:25 22:03 00:48 03:20 Temp 98.5 98.5 Pulse 83 72 Resp 20 16 20 16 B/P (MAP) 184/96 (125) 167/97 (120) Pulse Ox 94 94 O2 Delivery Room Air Room Air Room Air Room Air 6/702/12/20 02/12/20 02/12/20 07:20 08:00 09:33 11:20 Temp 97.5 98.2 97.5 98.2 Pulse 85 85 91 Resp 18 20 B/P (MAP) 153/101 (118) 153/101 171/95 (120) Pulse Ox 98 99 O2 Delivery Room Air Room Air Room Air 02/12/20 02/12/20 12:33 13:03 Pulse Ox 99 99 O2 Delivery Room Air Room Air Intake and Output 02/11/20 02/11/20 02/12/20 14:59 22:59 06:59 Intake Total 0 ml 0 ml Output Total 1050 ml 3100 ml 2950 ml Balance -1050 ml -3100 ml -2950 ml JACIEL RICHARD MD Feb 12, 2020 15:02
--- NOTE | 2020-02-12 16:05 | CARD ---
MR#: [id number] Date of Study: 02/12/2020 Ordering Physician: ADAMA BROWN, Referring Physician: ADAMA BROWN, Tech: Tish Simon [facility] APPROVED REPORT EXAM: Two-dimensional and M-mode echocardiogram with Doppler and color Doppler. Other Information Quality : AverageHR: 87bpm Rhythm : NSRTechnically limited study due to body habitus. INDICATION Non STEMI 2D DIMENSIONS RVDd2.5 (2.9-3.5cm)Left Atrium(2D)3.6 (1.6-4.0cm) IVSd1.6 (0.7-1.1cm)Aortic Root(2D)2.5 (2.0-3.7cm) LVDd4.6 (3.9-5.9cm)LVOT Diameter1.9 (1.8-2.4cm) PWd1.4 (0.7-1.1cm)LVDs3.0 (2.5-4.0cm) FS (%) 34.8 %SV62.4 ml Aortic Valve AoV Peak Ole.105.1cm/sAoV VTI13.0cm AO Peak GR.4.4mmHgLVOT VTI 10.02cm AO Mean GR.2mmHgAVA (VTI)2.20cm2 Mitral Valve MV E Zutuuzfy64.6cm/sMV DECEL BRKL074ln MV A Fpphzcdk36.9cm/sE/A Ratio0.6 TDI Lateral E' P. V5.92cm/sE/Lateral E'8.2 LEFT VENTRICLE The left ventricle is normal size. There is mild concentric left ventricular hypertrophy. The left ve ntricular systolic function is normal and the ejection fraction is within normal range. The Ejection Fraction is 60-65%. There is normal LV segmental wall motion. Transmitral Doppler flow pattern is abn ormal. RIGHT VENTRICLE The right ventricle is normal size. There is normal right ventricular wall thickness. The right ventr icular systolic function is normal. ATRIA The left atrium size is normal. The right atrium size is normal. The interatrial septum is intact wit h no evidence for an atrial septal defect or patent foramen ovale as noted on 2-D or Doppler imaging. AORTIC VALVE The aortic valve is normal in structure and function. The aortic valve is trileaflet. Doppler and Col or Flow revealed no significant aortic regurgitation. There is no significant aortic valvular stenosi s. There is no aortic valvular vegetation. MITRAL VALVE The mitral valve is normal in structure and function. There is no evidence of mitral valve prolapse. There is no mitral valve stenosis. Doppler and Color-flow revealed trace mitral regurgitation. TRICUSPID VALVE The tricuspid valve is normal in structure and function. Doppler and Color Flow revealed no tricuspid valve regurgitation noted. There is no tricuspid valve prolapse or vegetation. There is no tricuspid valve stenosis. PULMONIC VALVE The pulmonic valve is not well visualized. GREAT VESSELS The aortic root is normal in size. The ascending aorta is normal in size. The IVC is normal in size a nd collapses >50% with inspiration. PERICARDIAL EFFUSION There is no evidence of significant pericardial effusion. Critical Notification Critical Value: No <Conclusion> The left ventricle is normal size. The left ventricular systolic function is normal and the ejection fraction is within normal range. The Ejection Fraction is 60-65%. There is mild concentric left ventricular hypertrophy. Doppler and Color Flow revealed no significant aortic regurgitation. There is no significant aortic valvular stenosis. Doppler and Color-flow revealed trace mitral regurgitation. Doppler and Color Flow revealed no tricuspid valve regurgitation noted. Signed by : Adama Brown MD Electronically Approved : 02/12/2020 16:05:22
[2020-02-12 18:05] LABS: CALCIUM 7.4 mg/dL (8.5-10.1); CREATININE 1.3 mg/dL (0.6-1.0); GFR 53.6; POTASSIUM 3.3 mmol/L (3.5-5.1)
[2020-02-12] MEDS ORDERED: ACETAMINOPHEN 325 MG TABLET. PO PRN (19:30)
--- NOTE | 2020-02-12 20:01 | NUR ---
DR NELSON STATED THAT THE PT DID NOT NEED THE 3RD DOSE OF POTASSIUM THAT WAS SCHEDULED THIS MORNING AT 1030. VERIFIED WITH DR NELSON IN PERSON AND WAS TOLD NOT TO GIVE AND WE COULD RECHECK LATER.
[2020-02-12] MEDS: INSULIN GLARGINE SYRINGE. SQ SCH (21:00)
[2020-02-12] MEDS: HEPARIN 25,000UTS/250ML PREMIX 250 ML IV PRN (21:10)
[2020-02-12] MEDS: LIDOCAINE (700MG/PATCH) PATCH. TD PRN (21:23)
[2020-02-13 03:02] LABS: HEMATOCRIT 38.2 % (36.0-47.0); HEMOGLOBIN 12.9 g/dL (12.0-15.5); RED BLOOD COUNT 4.37 x10^6/uL (3.50-5.40); RED CELL DISTRIBUTION WIDTH 15.6 % (11.5-14.5); WHITE BLOOD COUNT 10.1 x10^3/uL (4.0-11.0)
[2020-02-13 03:20] LABS: CALCIUM 7.5 mg/dL (8.5-10.1); CREATININE 1.3 mg/dL (0.6-1.0); GFR 53.6; MAGNESIUM 1.6 mg/dL (1.8-2.4)
[2020-02-13 03:23] LABS: POTASSIUM 2.9 mmol/L (3.5-5.1)
[2020-02-13] MEDS: fentaNYL PF VIAL 100 MCG/2 ML VIAL IVP PRN ×3 (03:45→15:44)
[2020-02-13 03:56] VITALS: BP 168/99
[2020-02-13] MEDS ORDERED: MAGNESIUM SULFATE 2GM 50 ML IV ONE (04:00)
[2020-02-13] MEDS ORDERED: POTASSIUM CHLORIDE 20 MEQ TABLET.ER. PO ONE ×3 (06:00→10:00)
[2020-02-13 07:00] VITALS: BP 158/101
[2020-02-13] MEDS: INSULIN LISPRO 300 UNITS/3 ML VIAL. SQ SCH ×3 (08:00→17:45)
[2020-02-13] MEDS: TORSEMIDE 20 MG TABLET. PO SCH ×2 (08:12→21:46)
[2020-02-13] MEDS: LOSARTAN POTASSIUM 25 MG TABLET. PO SCH (08:15)
--- NOTE | 2020-02-13 10:54 | PDOC ---
PULMONARY PROGRESS NOTES Subjective Denies SOB or Cough, reports her breathing is good Report orbital swelling Vitals Vital Signs Date Time Temp Pulse Resp B/P (MAP) Pulse Ox O2 Delivery O2 Flow Rate FiO2 02/13/20 08:21 Room Air 02/13/20 08:15 89 158/101 02/13/20 07:00 97.4 20 91 97.4 ROS: No Nausea, No Chest Pain, No Abdominal Pain, No Increase Cough General: Alert, Oriented X4 Lungs: Clear Cardiovascular: S1, S2 Abdomen: Soft, Other (obese) Neuro Exam: Alert, Oriented Extremities: Other (R BKA ) Skin: Warm, Dry Labs Laboratory Tests Test 02/11/20 11:30 02/11/20 12:08 02/11/20 17:15 02/11/20 18:10 Heparin Anti-Xa Act, Unfractionated 0.34 IU/mL (0.30-0.70) 0.30 IU/mL (0.30-0.70) Sodium Level 143 mmol/L (136-145) Potassium Level 2.9 mmol/L (3.5-5.1) Chloride Level 105 mmol/L (98-107) Carbon Dioxide Level 31 mmol/L (21-32) Anion Gap 7 (6-14) Blood Urea Nitrogen 27 mg/dL (7-20) Creatinine 1.5 mg/dL (0.6-1.0) Estimated GFR (Cockcroft-Gault) 45.4 Glucose Level 289 mg/dL (70-99) Calcium Level 7.4 mg/dL (8.5-10.1) Phosphorus Level 2.8 mg/dL (2.6-4.7) Magnesium Level 1.8 mg/dL (1.8-2.4) Troponin I Quantitative 0.130 ng/mL (0.000-0.055) Albumin 1.7 g/dL (3.4-5.0) Glucose (Fingerstick) 261 mg/dL (70-99) 79 mg/dL (70-99) Test 02/11/20 20:55 02/12/20 03:20 02/12/20 05:00 02/12/20 07:37 Glucose (Fingerstick) 141 mg/dL (70-99) 51 mg/dL (70-99) 59 mg/dL (70-99) White Blood Count 9.1 x10^3/uL (4.0-11.0) Red Blood Count 4.73 x10^6/uL (3.50-5.40) Hemoglobin 14.1 g/dL (12.0-15.5) Hematocrit 41.8 % (36.0-47.0) Mean Corpuscular Volume 88 fL (79-100) Mean Corpuscular Hemoglobin 30 pg (25-35) Mean Corpuscular Hemoglobin Concent 34 g/dL (31-37) Red Cell Distribution Width 15.7 % (11.5-14.5) Platelet Count 224 x10^3/uL (140-400) Neutrophils (%) (Auto) 74 % (31-73) Lymphocytes (%) (Auto) 18 % (24-48) Monocytes (%) (Auto) 7 % (0-9) Eosinophils (%) (Auto) 1 % (0-3) Basophils (%) (Auto) 1 % (0-3) Neutrophils # (Auto) 6.7 x10^3/uL (1.8-7.7) Lymphocytes # (Auto) 1.6 x10^3/uL (1.0-4.8) Monocytes # (Auto) 0.6 x10^3/uL (0.0-1.1) Eosinophils # (Auto) 0.1 x10^3/uL (0.0-0.7) Basophils # (Auto) 0.0 x10^3/uL (0.0-0.2) Heparin Anti-Xa Act, Unfractionated 0.21 IU/mL (0.30-0.70) Sodium Level 149 mmol/L (136-145) Potassium Level 2.6 mmol/L (3.5-5.1) Chloride Level 109 mmol/L (98-107) Carbon Dioxide Level 33 mmol/L (21-32) Anion Gap 7 (6-14) Blood Urea Nitrogen 22 mg/dL (7-20) Creatinine 1.2 mg/dL (0.6-1.0) Estimated GFR (Cockcroft-Gault) 58.8 BUN/Creatinine Ratio 18 (6-20) Glucose Level 77 mg/dL (70-99) Calcium Level 7.7 mg/dL (8.5-10.1) Magnesium Level 1.8 mg/dL (1.8-2.4) Total Bilirubin 0.2 mg/dL (0.2-1.0) Aspartate Amino Transf (AST/SGOT) 34 U/L (15-37) Alanine Aminotransferase (ALT/SGPT) 34 U/L (14-59) Alkaline Phosphatase 144 U/L (46-116) Troponin I Quantitative 0.108 ng/mL (0.000-0.055) Total Protein 4.7 g/dL (6.4-8.2) Albumin 1.5 g/dL (3.4-5.0) Albumin/Globulin Ratio 0.5 (1.0-1.7) Test 02/12/20 09:24 02/12/20 12:39 02/12/20 17:00 02/12/20 17:02 Glucose (Fingerstick) 127 mg/dL (70-99) 88 mg/dL (70-99) 196 mg/dL (70-99) Heparin Anti-Xa Act, Unfractionated 0.29 IU/mL (0.30-0.70) Sodium Level 145 mmol/L (136-145) Potassium Level 3.3 mmol/L (3.5-5.1) Chloride Level 107 mmol/L (98-107) Carbon Dioxide Level 31 mmol/L (21-32) Anion Gap 7 (6-14) Blood Urea Nitrogen 20 mg/dL (7-20) Creatinine 1.3 mg/dL (0.6-1.0) Estimated GFR (Cockcroft-Gault) 53.6 Glucose Level 179 mg/dL (70-99) Calcium Level 7.4 mg/dL (8.5-10.1) Test 02/12/20 21:05 02/13/20 02:50 02/13/20 07:44 02/13/20 08:45 Glucose (Fingerstick) 231 mg/dL (70-99) 173 mg/dL (70-99) White Blood Count 10.1 x10^3/uL (4.0-11.0) Red Blood Count 4.37 x10^6/uL (3.50-5.40) Hemoglobin 12.9 g/dL (12.0-15.5) Hematocrit 38.2 % (36.0-47.0) Mean Corpuscular Volume 87 fL (79-100) Mean Corpuscular Hemoglobin 30 pg (25-35) Mean Corpuscular Hemoglobin Concent 34 g/dL (31-37) Red Cell Distribution Width 15.6 % (11.5-14.5) Platelet Count 227 x10^3/uL (140-400) Heparin Anti-Xa Act, Unfractionated 0.36 IU/mL (0.30-0.70) 0.59 IU/mL (0.30-0.70) Sodium Level 142 mmol/L (136-145) Potassium Level 2.9 mmol/L (3.5-5.1) Chloride Level 105 mmol/L (98-107) Carbon Dioxide Level 33 mmol/L (21-32) Anion Gap 4 (6-14) Blood Urea Nitrogen 19 mg/dL (7-20) Creatinine 1.3 mg/dL (0.6-1.0) Estimated GFR (Cockcroft-Gault) 53.6 Glucose Level 220 mg/dL (70-99) Calcium Level 7.5 mg/dL (8.5-10.1) Magnesium Level 1.6 mg/dL (1.8-2.4) Laboratory Tests Test 02/12/20 12:39 02/12/20 17:00 02/12/20 17:02 02/12/20 21:05 Glucose (Fingerstick) 88 mg/dL (70-99) 196 mg/dL (70-99) 231 mg/dL (70-99) Heparin Anti-Xa Act, Unfractionated 0.29 IU/mL (0.30-0.70) Sodium Level 145 mmol/L (136-145) Potassium Level 3.3 mmol/L (3.5-5.1) Chloride Level 107 mmol/L (98-107) Carbon Dioxide Level 31 mmol/L (21-32) Anion Gap 7 (6-14) Blood Urea Nitrogen 20 mg/dL (7-20) Creatinine 1.3 mg/dL (0.6-1.0) Estimated GFR (Cockcroft-Gault) 53.6 Glucose Level 179 mg/dL (70-99) Calcium Level 7.4 mg/dL (8.5-10.1) Test 02/13/20 02:50 02/13/20 07:44 02/13/20 08:45 White Blood Count 10.1 x10^3/uL (4.0-11.0) Red Blood Count 4.37 x10^6/uL (3.50-5.40) Hemoglobin 12.9 g/dL (12.0-15.5) Hematocrit 38.2 % (36.0-47.0) Mean Corpuscular Volume 87 fL (79-100) Mean Corpuscular Hemoglobin 30 pg (25-35) Mean Corpuscular Hemoglobin Concent 34 g/dL (31-37) Red Cell Distribution Width 15.6 % (11.5-14.5) Platelet Count 227 x10^3/uL (140-400) Heparin Anti-Xa Act, Unfractionated 0.36 IU/mL (0.30-0.70) 0.59 IU/mL (0.30-0.70) Sodium Level 142 mmol/L (136-145) Potassium Level 2.9 mmol/L (3.5-5.1) Chloride Level 105 mmol/L (98-107) Carbon Dioxide Level 33 mmol/L (21-32) Anion Gap 4 (6-14) Blood Urea Nitrogen 19 mg/dL (7-20) Creatinine 1.3 mg/dL (0.6-1.0) Estimated GFR (Cockcroft-Gault) 53.6 Glucose Level 220 mg/dL (70-99) Calcium Level 7.5 mg/dL (8.5-10.1) Magnesium Level 1.6 mg/dL (1.8-2.4) Glucose (Fingerstick) 173 mg/dL (70-99) Medications Active Scripts Medications Dose Route/Sig Max Daily Dose Days Date Category Dose Instructions Tizanidine Hcl 2 Mg Tablet 2 Mg PO PRN Q6HRS PRN 02/10/20 Reported Losartan Potassium 50 Mg Tablet 50 Mg PO DAILY 02/10/20 Reported Montelukast Sodium Tablet (Montelukast Sodium) 10 Mg Tablet 10 Mg PO HS 02/10/20 Reported Torsemide 20 Mg Tablet 2 Tab PO DAILY 02/10/20 Reported Furosemide 80 Mg Tablet 1 Tab PO BID 02/10/20 Reported Xarelto (Rivaroxaban) 20 Mg Tablet 1 Tab PO DAILY 30 02/10/20 Reported with food Lovastatin 40 Mg Tablet 40 Mg PO HS 02/09/18 Reported Humalog (Insulin Lispro) 100 Unit/1 Ml Insuln.pen 35 Unit SQ TIDWMEALS 02/09/18 Reported Lantus Solostar (Insulin Glargine,Hum.rec.anlog) 100 Unit/1 Ml Insuln.pen 65 Unit SQ QHS 02/09/18 Reported Gabapentin (Gabapentin) 300 Mg Capsule 300 Mg PO TID 02/09/18 Reported Amlodipine Besylate 10 Mg Tablet 10 Mg PO DAILY 02/09/18 Reported Comments CXR 02/11/2020 Impression: Mild basal infiltrates could be discoid atelectasis or pneumonia. LE U/S Impression: No evidence of DVT. Impression . IMPRESSION: 1. Dyspnea with generalized edema. Consistent with mild congestive heart failure, likely diastolic- improved 2. Hypertension, under suboptimal control. 3. Acute kidney injury versus chronic kidney disease. 4. Mildly increased troponin level. 5. Long history of tobacco use, suspect underlying chronic obstructive pulmonary disease. 6. Ongoing marijuana use. 7. Peripheral vascular disease with prior right below-knee amputation. 8. swollen eyelids, check TSH Plan . RECOMMENDATIONS: 1. From a pulmonary standpoint, she is stable, remains on room air 2. P.r.n. Lasix. 3. Follow cardiology recommendations-- on heparin gtt, awaiting ECHO results 4. Follow nephrology recs 5. Outpatient PFTs. 6. TSH level D/W NATALIE NIXON MD Feb 13, 2020 10:54
[2020-02-13 11:15] VITALS: BP 184/100
--- NOTE | 2020-02-13 11:23 | PDOC ---
Renal-Progress Notes Subjective Notes Notes NO SOB History of Present Illness Hx of present illness STABLE Vitals Vitals Vital Signs Date Time Temp Pulse Resp B/P (MAP) Pulse Ox O2 Delivery O2 Flow Rate FiO2 02/13/20 11:15 97.8 85 20 184/100 (128) 97 Room Air 97.8 Weight Weight [ ] I.O. Intake and Output Intake and Output 02/13/20 07:00 Intake Total 880 ml Output Total 2075 ml Balance -1195 ml Intake Oral 880 ml Output Urine Total 2075 ml # Voids 1 # Bowel Movements 4 Labs Labs Laboratory Tests Test 02/12/20 12:39 02/12/20 17:00 02/12/20 17:02 02/12/20 21:05 Glucose (Fingerstick) 88 mg/dL (70-99) 196 mg/dL (70-99) 231 mg/dL (70-99) Heparin Anti-Xa Act, Unfractionated 0.29 IU/mL (0.30-0.70) Sodium Level 145 mmol/L (136-145) Potassium Level 3.3 mmol/L (3.5-5.1) Chloride Level 107 mmol/L (98-107) Carbon Dioxide Level 31 mmol/L (21-32) Anion Gap 7 (6-14) Blood Urea Nitrogen 20 mg/dL (7-20) Creatinine 1.3 mg/dL (0.6-1.0) Estimated GFR (Cockcroft-Gault) 53.6 Glucose Level 179 mg/dL (70-99) Calcium Level 7.4 mg/dL (8.5-10.1) Test 02/13/20 02:50 02/13/20 07:44 02/13/20 08:45 White Blood Count 10.1 x10^3/uL (4.0-11.0) Red Blood Count 4.37 x10^6/uL (3.50-5.40) Hemoglobin 12.9 g/dL (12.0-15.5) Hematocrit 38.2 % (36.0-47.0) Mean Corpuscular Volume 87 fL (79-100) Mean Corpuscular Hemoglobin 30 pg (25-35) Mean Corpuscular Hemoglobin Concent 34 g/dL (31-37) Red Cell Distribution Width 15.6 % (11.5-14.5) Platelet Count 227 x10^3/uL (140-400) Heparin Anti-Xa Act, Unfractionated 0.36 IU/mL (0.30-0.70) 0.59 IU/mL (0.30-0.70) Sodium Level 142 mmol/L (136-145) Potassium Level 2.9 mmol/L (3.5-5.1) Chloride Level 105 mmol/L (98-107) Carbon Dioxide Level 33 mmol/L (21-32) Anion Gap 4 (6-14) Blood Urea Nitrogen 19 mg/dL (7-20) Creatinine 1.3 mg/dL (0.6-1.0) Estimated GFR (Cockcroft-Gault) 53.6 Glucose Level 220 mg/dL (70-99) Calcium Level 7.5 mg/dL (8.5-10.1) Magnesium Level 1.6 mg/dL (1.8-2.4) Glucose (Fingerstick) 173 mg/dL (70-99) Review of Systems Constitutional: yes: alert, oriented Ears/Nose/Throat: Yes: no symptom reported Eyes: Yes: no symptom reported Pulmonary: Yes no symptom reported Cardiovascular: Yes no symptom reported Genitourinary: Yes: no symptom reported Musculoskeletal: Yes: no symptom reported Skin: Yes no symptom reported Psychiatric/Neurological: Yes: no symptom reported Endocrine: Yes: no symptom reported Physical Exam General Appearance: no apparent distress Skin: warm Respiratory: bilateral CTA Heart: S1S2 Abdomen: soft, bowel sounds present Genitourinary: bladder flat Extremities: pulses present Neurology: alert, oriented Musculoskeletal: Stiffness Assessment Assessment IMP CKD STAGE 4?-CR OF 1.3 - MOST LIKELY STAGE 3 A HYPOKALEMIA LOW MAG DYSPNEA-RESOLVED GENERALIZED EDEMA UNCONTROLLED HTN PROB COPD OBESITY PAD DM II PLAN REPLACE K AND MAG CONT TORSEMIDE INCREASED [facility] EVALUATION WILL FOLLOW ROSANNE OROZCO MD Feb 13, 2020 11:23
--- NOTE | 2020-02-13 12:18 | PDOC ---
SABRINA HERRERA [employer]ELOPMENT MANAGER 02/13/20 1218: CARDIO Progress Notes Date and Time Date of Service 02/13/20 Time of Evaluation 1200 Subjective Subjective: No Chest Pain, No shortness of breath, Other (LE edema better) Vitals Vitals Vital Signs Date Time Temp Pulse Resp B/P (MAP) Pulse Ox O2 Delivery O2 Flow Rate FiO2 02/13/20 11:15 97.8 85 20 184/100 (128) 97 Room Air 97.8 Weight Weight [ ] Input and Output Intake and Output Intake and Output 02/13/20 07:00 Intake Total 880 ml Output Total 2075 ml Balance -1195 ml Intake Oral 880 ml Output Urine Total 2075 ml # Voids 1 # Bowel Movements 4 Laboratory Labs Laboratory Tests Test 02/12/20 12:39 02/12/20 17:00 02/12/20 17:02 02/12/20 21:05 Glucose (Fingerstick) 88 mg/dL (70-99) 196 mg/dL (70-99) 231 mg/dL (70-99) Heparin Anti-Xa Act, Unfractionated 0.29 IU/mL (0.30-0.70) Sodium Level 145 mmol/L (136-145) Potassium Level 3.3 mmol/L (3.5-5.1) Chloride Level 107 mmol/L (98-107) Carbon Dioxide Level 31 mmol/L (21-32) Anion Gap 7 (6-14) Blood Urea Nitrogen 20 mg/dL (7-20) Creatinine 1.3 mg/dL (0.6-1.0) Estimated GFR (Cockcroft-Gault) 53.6 Glucose Level 179 mg/dL (70-99) Calcium Level 7.4 mg/dL (8.5-10.1) Test 02/13/20 02:50 02/13/20 07:44 02/13/20 08:45 02/13/20 11:31 White Blood Count 10.1 x10^3/uL (4.0-11.0) Red Blood Count 4.37 x10^6/uL (3.50-5.40) Hemoglobin 12.9 g/dL (12.0-15.5) Hematocrit 38.2 % (36.0-47.0) Mean Corpuscular Volume 87 fL (79-100) Mean Corpuscular Hemoglobin 30 pg (25-35) Mean Corpuscular Hemoglobin Concent 34 g/dL (31-37) Red Cell Distribution Width 15.6 % (11.5-14.5) Platelet Count 227 x10^3/uL (140-400) Heparin Anti-Xa Act, Unfractionated 0.36 IU/mL (0.30-0.70) 0.59 IU/mL (0.30-0.70) Sodium Level 142 mmol/L (136-145) Potassium Level 2.9 mmol/L (3.5-5.1) Chloride Level 105 mmol/L (98-107) Carbon Dioxide Level 33 mmol/L (21-32) Anion Gap 4 (6-14) Blood Urea Nitrogen 19 mg/dL (7-20) Creatinine 1.3 mg/dL (0.6-1.0) Estimated GFR (Cockcroft-Gault) 53.6 Glucose Level 220 mg/dL (70-99) Calcium Level 7.5 mg/dL (8.5-10.1) Magnesium Level 1.6 mg/dL (1.8-2.4) Glucose (Fingerstick) 173 mg/dL (70-99) 186 mg/dL (70-99) Thyroid Stimulating Hormone (TSH) 1.594 uIU/mL (0.358-3.74) Review of Systems Constitutional: yes: alert, oriented Ears/Nose/Throat: Yes: no symptom reported Eyes: Yes: no symptom reported Pulmonary: Yes no symptom reported Cardiovascular: Yes no symptom reported Genitourinary: Yes: no symptom reported Musculoskeletal: Yes: no symptom reported Skin: Yes no symptom reported Psychiatric/Neurological: Yes: no symptom reported Endocrine: Yes: no symptom reported Physical Exam HEENT: Neck Supple W Full Motion Chest: Symmetric LUNGS: Clear to Auscultation, Other (diminished ) Heart: S1S2, RRR Abdomen: Soft N/T, Other (obese ) Extremities: Other (1+ LLE edema. RLE BKA) Neurology: alert, oriented, follow commands Assessment Assessment 1. Generalized edema, anasarca. Improved 2. Mild acute on chronic probable diastolic CHF. 3. Chest pain, atypical. 4. Mild troponin at 0.134. Echo with preserved LV systolic function 5. PVD s/p right BKA and partial left foot amputation. 6. Diabetes, II; uncontrolled 7. Hypertension; labile 8. COPD with continued tobacco abuse. Discussed/encouraged cessation 9. CKD 10. Hypomagnesemia 11. H/o DVT on Xarelto Recommendations Discontinue heparin gtt ASA Lipids Resume Norvasc Hydralazine IV PRN Will arranged 2-day MPI to evaluation for reversible ischemia given chest pain, risk factors, and mild troponin elevation Further pending above. Supportive care Justicifation of Admission Dx: Justifications for Admission: Justification of Admission Dx: Yes JACIEL RICHARD MD 02/13/20 1708: CARDIO Progress Notes Assessment Assessment Patient seen and examined Discussed with our nurse practitioner and agree with her assessment and plan. Mild acute on chronic probable diastolic CHF. Chest pain. Mild troponin at 0.134. Echo with preserved LV systolic function. Multiple risk factors. Will check MPI testing. PVD s/p right BKA and partial left foot amputation. Hypertension; labile COPD with continued tobacco abuse. Discussed/encouraged cessation CKD H/o DVT on Xarelto SABRINA HERRERA APRN Feb 13, 2020 12:18 JACIEL RICHARD MD Feb 13, 2020 17:08
--- NOTE | 2020-02-13 12:38 | NUR ---
SS following for discharge planning. SS reviewed pt chart and discussed with pt RN. Pt is from home and is currently on room air. Pt on Heparin drip and MPI ordered. SS will continue to follow for discharge planning.
--- NOTE | 2020-02-13 13:19 | PDOC ---
PROGRESS NOTES Chief Complaint Chief Complaint Acute on chronic systolic and diastolic heart failure NSTEMI hypokalemia , now severe on replacement HYPERTENSION MORBID OBESITY Hyperlipidemia possible pneumonia Mild basal infiltrates could be discoid atelectasis or pneumonia. suspect underlying chronic obstructive pulmonary disease. chronic renal disease . STAGE 3 diabetes hx noncompliance hxTHC abuse Occlusion of the right superficial femoral artery. Peripheral vascular disease with prior right below-knee amputation. History of Present Illness History of Present Illness PT and OT, may likely need skilled cont current consult physiatry, she complains of poorly fitting prosthetic leg, Replace potassium. IV Lasix . Trend labs, home meds, DVT prophylaxis. Full code. CVC BED , Cardiac monitoring. glucose control HEPARIN DRIP RIGHT LEG ARTERIAL DOPPLER Vitals Vitals Vital Signs Date Time Temp Pulse Resp B/P (MAP) Pulse Ox O2 Delivery O2 Flow Rate FiO2 02/13/20 11:15 97.8 85 20 184/100 (128) 97 Room Air 97.8 Physical Exam Physical Exam GENERAL: No apparent distress. Alert and oriented. HEENT: Normal cephalic atraumatic, external auditory canals are patent. EYES: Extraocular muscles are intact, pupils are equally round and reactive to light and accommodation. MUSCULOSKELETAL: Well developed, well nourished, good range of motion. ENDOCRINE: No thyromegaly was palpated. LYMPHATICS: No cervical chain or axillary nodes were noted. HEMATOPOIETIC: No bruising. NECK: Supple, no JVD, no thyromegaly was noted. LUNGS: slight crackles. HEART: RRR, S1, S2 present. Peripheral pulses intact, no obvious murmurs were noted. ABDOMEN: Soft, nontender. Positive bowel sounds no organomegaly, normal bowel sounds. EXTREMITIES: She has a left BKA. She has right lower extremity swelling, at 2+ edema. NEUROLOGIC: Normal speech, normal tone. A & O x3, moves all extremities, no obvious focal deficits. PSYCHIATRIC: Normal affect, normal mood. Stable. SKIN: No ulcerations or rashes, good skin turgor, no jaundice. VASCULAR: Good capillary refill, neurovascular bundle appears to be intact. General: No acute distress, mild distress Heart: Regular rate Lungs: Clear Abdomen: Normal bowel sounds Extremities: Normal pulses, Other (Bilateral edema, even to stumpon left, better, ) Skin: No breakdown Labs LABS Laboratory Tests Test 6/7/20 17:00 02/12/20 17:02 02/12/20 21:05 02/13/20 02:50 Heparin Anti-Xa Act, Unfractionated 0.29 IU/mL (0.30-0.70) 0.36 IU/mL (0.30-0.70) Sodium Level 145 mmol/L (136-145) 142 mmol/L (136-145) Potassium Level 3.3 mmol/L (3.5-5.1) 2.9 mmol/L (3.5-5.1) Chloride Level 107 mmol/L (98-107) 105 mmol/L (98-107) Carbon Dioxide Level 31 mmol/L (21-32) 33 mmol/L (21-32) Anion Gap 7 (6-14) 4 (6-14) Blood Urea Nitrogen 20 mg/dL (7-20) 19 mg/dL (7-20) Creatinine 1.3 mg/dL (0.6-1.0) 1.3 mg/dL (0.6-1.0) Estimated GFR (Cockcroft-Gault) 53.6 53.6 Glucose Level 179 mg/dL (70-99) 220 mg/dL (70-99) Calcium Level 7.4 mg/dL (8.5-10.1) 7.5 mg/dL (8.5-10.1) Glucose (Fingerstick) 196 mg/dL (70-99) 231 mg/dL (70-99) White Blood Count 10.1 x10^3/uL (4.0-11.0) Red Blood Count 4.37 x10^6/uL (3.50-5.40) Hemoglobin 12.9 g/dL (12.0-15.5) Hematocrit 38.2 % (36.0-47.0) Mean Corpuscular Volume 87 fL (79-100) Mean Corpuscular Hemoglobin 30 pg (25-35) Mean Corpuscular Hemoglobin Concent 34 g/dL (31-37) Red Cell Distribution Width 15.6 % (11.5-14.5) Platelet Count 227 x10^3/uL (140-400) Magnesium Level 1.6 mg/dL (1.8-2.4) Test 02/13/20 07:44 02/13/20 08:45 02/13/20 11:31 Glucose (Fingerstick) 173 mg/dL (70-99) 186 mg/dL (70-99) Heparin Anti-Xa Act, Unfractionated 0.59 IU/mL (0.30-0.70) Thyroid Stimulating Hormone (TSH) 1.594 uIU/mL (0.358-3.74) Assessment and Plan Assessmemt and Plan Problems Medical Problems: (1) NSTEMI (non-ST elevated myocardial infarction) Status: Acute Comment Review of Relevant I have reviewed the following items myesha (where applicable) has been applied. Labs Laboratory Tests Test 02/11/20 17:15 02/11/20 18:10 02/11/20 20:55 02/12/20 03:20 Glucose (Fingerstick) 79 mg/dL (70-99) 141 mg/dL (70-99) 51 mg/dL (70-99) Heparin Anti-Xa Act, Unfractionated 0.30 IU/mL (0.30-0.70) Test 02/12/20 05:00 02/12/20 07:37 02/12/20 09:24 02/12/20 12:39 White Blood Count 9.1 x10^3/uL (4.0-11.0) Red Blood Count 4.73 x10^6/uL (3.50-5.40) Hemoglobin 14.1 g/dL (12.0-15.5) Hematocrit 41.8 % (36.0-47.0) Mean Corpuscular Volume 88 fL (79-100) Mean Corpuscular Hemoglobin 30 pg (25-35) Mean Corpuscular Hemoglobin Concent 34 g/dL (31-37) Red Cell Distribution Width 15.7 % (11.5-14.5) Platelet Count 224 x10^3/uL (140-400) Neutrophils (%) (Auto) 74 % (31-73) Lymphocytes (%) (Auto) 18 % (24-48) Monocytes (%) (Auto) 7 % (0-9) Eosinophils (%) (Auto) 1 % (0-3) Basophils (%) (Auto) 1 % (0-3) Neutrophils # (Auto) 6.7 x10^3/uL (1.8-7.7) Lymphocytes # (Auto) 1.6 x10^3/uL (1.0-4.8) Monocytes # (Auto) 0.6 x10^3/uL (0.0-1.1) Eosinophils # (Auto) 0.1 x10^3/uL (0.0-0.7) Basophils # (Auto) 0.0 x10^3/uL (0.0-0.2) Heparin Anti-Xa Act, Unfractionated 0.21 IU/mL (0.30-0.70) Sodium Level 149 mmol/L (136-145) Potassium Level 2.6 mmol/L (3.5-5.1) Chloride Level 109 mmol/L (98-107) Carbon Dioxide Level 33 mmol/L (21-32) Anion Gap 7 (6-14) Blood Urea Nitrogen 22 mg/dL (7-20) Creatinine 1.2 mg/dL (0.6-1.0) Estimated GFR (Cockcroft-Gault) 58.8 BUN/Creatinine Ratio 18 (6-20) Glucose Level 77 mg/dL (70-99) Calcium Level 7.7 mg/dL (8.5-10.1) Magnesium Level 1.8 mg/dL (1.8-2.4) Total Bilirubin 0.2 mg/dL (0.2-1.0) Aspartate Amino Transf (AST/SGOT) 34 U/L (15-37) Alanine Aminotransferase (ALT/SGPT) 34 U/L (14-59) Alkaline Phosphatase 144 U/L (46-116) Troponin I Quantitative 0.108 ng/mL (0.000-0.055) Total Protein 4.7 g/dL (6.4-8.2) Albumin 1.5 g/dL (3.4-5.0) Albumin/Globulin Ratio 0.5 (1.0-1.7) Glucose (Fingerstick) 59 mg/dL (70-99) 127 mg/dL (70-99) 88 mg/dL (70-99) Test 02/12/20 17:00 02/12/20 17:02 02/12/20 21:05 02/13/20 02:50 Heparin Anti-Xa Act, Unfractionated 0.29 IU/mL (0.30-0.70) 0.36 IU/mL (0.30-0.70) Sodium Level 145 mmol/L (136-145) 142 mmol/L (136-145) Potassium Level 3.3 mmol/L (3.5-5.1) 2.9 mmol/L (3.5-5.1) Chloride Level 107 mmol/L (98-107) 105 mmol/L (98-107) Carbon Dioxide Level 31 mmol/L (21-32) 33 mmol/L (21-32) Anion Gap 7 (6-14) 4 (6-14) Blood Urea Nitrogen 20 mg/dL (7-20) 19 mg/dL (7-20) Creatinine 1.3 mg/dL (0.6-1.0) 1.3 mg/dL (0.6-1.0) Estimated GFR (Cockcroft-Gault) 53.6 53.6 Glucose Level 179 mg/dL (70-99) 220 mg/dL (70-99) Calcium Level 7.4 mg/dL (8.5-10.1) 7.5 mg/dL (8.5-10.1) Glucose (Fingerstick) 196 mg/dL (70-99) 231 mg/dL (70-99) White Blood Count 10.1 x10^3/uL (4.0-11.0) Red Blood Count 4.37 x10^6/uL (3.50-5.40) Hemoglobin 12.9 g/dL (12.0-15.5) Hematocrit 38.2 % (36.0-47.0) Mean Corpuscular Volume 87 fL (79-100) Mean Corpuscular Hemoglobin 30 pg (25-35) Mean Corpuscular Hemoglobin Concent 34 g/dL (31-37) Red Cell Distribution Width 15.6 % (11.5-14.5) Platelet Count 227 x10^3/uL (140-400) Magnesium Level 1.6 mg/dL (1.8-2.4) Test 02/13/20 07:44 02/13/20 08:45 02/13/20 11:31 Glucose (Fingerstick) 173 mg/dL (70-99) 186 mg/dL (70-99) Heparin Anti-Xa Act, Unfractionated 0.59 IU/mL (0.30-0.70) Thyroid Stimulating Hormone (TSH) 1.594 uIU/mL (0.358-3.74) Laboratory Tests Test 02/12/20 17:00 02/12/20 17:02 02/12/20 21:05 02/13/20 02:50 Heparin Anti-Xa Act, Unfractionated 0.29 IU/mL (0.30-0.70) 0.36 IU/mL (0.30-0.70) Sodium Level 145 mmol/L (136-145) 142 mmol/L (136-145) Potassium Level 3.3 mmol/L (3.5-5.1) 2.9 mmol/L (3.5-5.1) Chloride Level 107 mmol/L (98-107) 105 mmol/L (98-107) Carbon Dioxide Level 31 mmol/L (21-32) 33 mmol/L (21-32) Anion Gap 7 (6-14) 4 (6-14) Blood Urea Nitrogen 20 mg/dL (7-20) 19 mg/dL (7-20) Creatinine 1.3 mg/dL (0.6-1.0) 1.3 mg/dL (0.6-1.0) Estimated GFR (Cockcroft-Gault) 53.6 53.6 Glucose Level 179 mg/dL (70-99) 220 mg/dL (70-99) Calcium Level 7.4 mg/dL (8.5-10.1) 7.5 mg/dL (8.5-10.1) Glucose (Fingerstick) 196 mg/dL (70-99) 231 mg/dL (70-99) White Blood Count 10.1 x10^3/uL (4.0-11.0) Red Blood Count 4.37 x10^6/uL (3.50-5.40) Hemoglobin 12.9 g/dL (12.0-15.5) Hematocrit 38.2 % (36.0-47.0) Mean Corpuscular Volume 87 fL (79-100) Mean Corpuscular Hemoglobin 30 pg (25-35) Mean Corpuscular Hemoglobin Concent 34 g/dL (31-37) Red Cell Distribution Width 15.6 % (11.5-14.5) Platelet Count 227 x10^3/uL (140-400) Magnesium Level 1.6 mg/dL (1.8-2.4) Test 02/13/20 07:44 02/13/20 08:45 02/13/20 11:31 Glucose (Fingerstick) 173 mg/dL (70-99) 186 mg/dL (70-99) Heparin Anti-Xa Act, Unfractionated 0.59 IU/mL (0.30-0.70) Thyroid Stimulating Hormone (TSH) 1.594 uIU/mL (0.358-3.74) Medications Current Medications Aspirin (Aspirin Chewable) 324 mg 1X ONCE PO Last administered on 02/10/20at 20:36; Start 02/10/20 at 20:00; Stop 02/10/20 at 20:01; Status DC Heparin Sodium (Porcine) (Heparin Sodium) 4,000 unit 1X ONCE IV Last administered on 02/10/20at 21:31; Start 02/10/20 at 21:30; Stop 02/10/20 at 21:31; Status DC Heparin Sodium/ Dextrose 250 ml @ 0 mls/hr CONT IV ; Start 02/10/20 at 21:15; Status UNV Heparin Sodium/ Dextrose 250 ml @ 0 mls/hr CONT PRN IV PER PROTOCOL Last administered on 02/12/20at 21:10; Start 02/10/20 at 21:30 Heparin Sodium (Porcine) (Heparin Sodium) 2,950 unit PRN Q6HRS PRN IV FOR UFH LEVEL LESS THAN 0.2; Start 02/10/20 at 21:30 Info (Anti-Coagulation Monitoring By Pharmacy) 1 each PRN DAILY PRN MC SEE COMMENTS Last administered on 02/11/20at 01:59; Start 02/10/20 at 21:30 Insulin Glargine (Lantus Syringe) 65 unit QHS SQ Last administered on 02/11/20at 21:19; Start 02/11/20 at 01:00 Dextrose (Dextrose 50%-Water Syringe) 12.5 gm PRN Q15MIN PRN IV SEE COMMENTS; Start 02/11/20 at 00:30 Insulin Human Lispro (HumaLOG) 35 units TIDWMEALS SQ Last administered on 02/11/20at 13:24; Start 02/11/20 at 08:00 Insulin Human Lispro (HumaLOG) 20 units 1X ONCE SQ Last administered on 02/11/20at 00:40; Start 02/11/20 at 01:00; Stop 02/11/20 at 01:01; Status DC Fentanyl Citrate (Fentanyl 2ml Vial) 50 mcg PRN Q2HR PRN IVP SEVERE PAIN 7-10 Last administered on 02/13/20at 08:21; Start 02/11/20 at 00:30 Fluconazole (Diflucan) 150 mg 1X ONCE PO Last administered on 02/11/20at 13:11; Start 02/11/20 at 12:00; Stop 02/11/20 at 12:01; Status DC Phenazopyridine HCl (Pyridium) 200 mg PRN Q6HRS PRN PO URINARY PAIN Last administered on 02/12/20 21:22; Start 02/11/20 at 11:45 Potassium Chloride (Klor-Con) 20 meq 1X ONCE PO Last administered on 02/11/20at 13:11; Start 02/11/20 at 12:00; Stop 02/11/20 at 12:01; Status DC Losartan Potassium (Cozaar) 50 mg DAILY PO Last administered on 02/12/20at 09:33; Start 02/11/20 at 12:00; Stop 02/12/20 at 14:33; Status DC Torsemide (Demadex) 20 mg BID PO Last administered on 02/13/20at 08:12; Start 02/11/20 at 12:00 Potassium Chloride (Klor-Con) 30 meq DAILYWBKFT PO ; Start 02/11/20 at 13:00; Stop 02/11/20 at 15:28; Status DC Potassium Chloride (Klor-Con) 30 meq 1X PO ; Start 02/11/20 at 16:00 Potassium Chloride (Klor-Con) 40 meq 1X ONCE PO Last administered on 02/12/20at 06:45; Start 02/12/20 at 06:30; Stop 02/12/20 at 06:31; Status DC Potassium Chloride (Klor-Con) 40 meq 1X ONCE PO Last administered on 02/12/20at 09:37; Start 02/12/20 at 08:30; Stop 02/12/20 at 08:31; Status DC Potassium Chloride (Klor-Con) 40 meq 1X ONCE PO ; Start 02/12/20 at 10:30; Stop 02/12/20 at 10:31; Status DC Losartan Potassium (Cozaar) 75 mg DAILY PO Last administered on 02/13/20at 08:15; Start 02/13/20 at 09:00 Losartan Potassium (Cozaar) 25 mg 1X ONCE PO Last administered on 02/12/20at 16:32; Start 02/12/20 at 14:30; Stop 02/12/20 at 14:38; Status DC Lidocaine (Lidoderm) 1 patch PRN DAILY PRN TD PAIN Last administered on 02/12/20at 21:23; Start 02/12/20 at 19:30 Acetaminophen (Tylenol) 650 mg PRN Q6HRS PRN PO PAIN Last administered on 02/12/20at 21:22; Start 02/12/20 at 19:30 Magnesium Sulfate 50 ml @ 25 mls/hr 1X ONCE IV Last administered on 02/13/20at 03:45; Start 02/13/20 at 04:00; Stop 02/13/20 at 05:59; Status DC Potassium Chloride (Klor-Con) 40 meq 1X ONCE PO Last administered on 02/13/20at 05:59; Start 02/13/20 at 06:00; Stop 02/13/20 at 06:01; Status DC Potassium Chloride (Klor-Con) 40 meq 1X ONCE PO Last administered on 02/13/20at 08:12; Start 02/13/20 at 08:00; Stop 02/13/20 at 08:01; Status DC Potassium Chloride (Klor-Con) 40 meq 1X ONCE PO Last administered on 02/13/20at 11:13; Start 02/13/20 at 10:00; Stop 02/13/20 at 10:01; Status DC Oxycodone/ Acetaminophen (Percocet 10/325) 1 tab PRN Q4HRS PRN PO pain; Start 02/13/20 at 12:00 Oxycodone HCl (Roxicodone) 20 mg PRN Q6HRS PRN PO PAIN/IF PERCOCET FAIL TO HELP; Start 02/13/20 at 12:00 Hydralazine HCl (Apresoline Inj) 10 mg PRN Q4HRS PRN IVP ELEVATED BP, SEE COMMENTS; Start 02/13/20 at 13:00 Active Scripts Active Reported Tizanidine Hcl 2 Mg Tablet 2 Mg PO PRN Q6HRS PRN Losartan Potassium 50 Mg Tablet 50 Mg PO DAILY Montelukast Sodium Tablet (Montelukast Sodium) 10 Mg Tablet 10 Mg PO HS Torsemide 20 Mg Tablet 2 Tab PO DAILY Furosemide 80 Mg Tablet 1 Tab PO BID Xarelto (Rivaroxaban) 20 Mg Tablet 1 Tab PO DAILY 30 Days with food Lovastatin 40 Mg Tablet 40 Mg PO HS Humalog (Insulin Lispro) 100 Unit/1 Ml Insuln.pen 35 Unit SQ TIDWMEALS Lantus Solostar (Insulin Glargine,Hum.rec.anlog) 100 Unit/1 Ml Insuln.pen 65 Unit SQ QHS Gabapentin (Gabapentin) 300 Mg Capsule 300 Mg PO TID Amlodipine Besylate 10 Mg Tablet 10 Mg PO DAILY Vitals/I & O Vital Sign - Last 24 Hours 02/12/20 02/12/20 02/12/20 02/12/20 15:00 16:32 16:33 16:35 Temp 98.0 98.0 Pulse 96 94 Resp 20 B/P (MAP) 157/121 (133) 157/121 159/100 (119) Pulse Ox 99 99 O2 Delivery Room Air Room Air 02/12/20 02/12/20 02/12/20 02/12/20 17:05 19:06 20:00 21:01 Temp 98.4 98.4 Pulse 92 Resp 18 20 B/P (MAP) 152/89 (110) Pulse Ox 99 97 O2 Delivery Room Air Room Air Room Air 02/12/20 02/13/20 02/13/20 02/13/20 22:56 03:45 03:56 07:00 Temp 98.3 98.5 97.4 98.3 98.5 97.4 Pulse 95 91 89 Resp 16 20 16 20 B/P (MAP) 157/89 (111) 168/99 (122) 158/101 (120) Pulse Ox 95 95 91 O2 Delivery Room Air Room Air Room Air Room Air 02/13/20 02/13/20 02/13/20 08:15 08:21 11:15 Temp 97.8 97.8 Pulse 89 85 Resp 20 B/P (MAP) 158/101 184/100 (128) Pulse Ox 97 O2 Delivery Room Air Room Air Intake and Output 02/12/20 02/12/20 02/13/20 15:00 23:00 07:00 Intake Total 480 ml 0 ml 400 ml Output Total 900 ml 1175 ml Balance -420 ml 0 ml -775 ml DAGMAR WILSON MD Feb 13, 2020 13:19
[2020-02-13] MEDS ORDERED: REGADENOSON 0.4 MG/5 ML DISP.SYRIN. IV ONE (13:30)
[2020-02-13 15:12] VITALS: BP 144/96
[2020-02-13] MEDS ORDERED: ONDANSETRON PF 4 MG/2 ML VIAL. IVP PRN (15:30)
--- NOTE | 2020-02-13 16:42 | NUR ---
Wound Care Pt off unit upon arrival, will try again tomorrow
[2020-02-13 17:10] LABS: CHOLESTEROL/HDL RATIO 4.9
[2020-02-13] MEDS: oxyCODONE/APAP 10/325 1 TAB TABLET PO PRN (17:48)
[2020-02-13 19:35] VITALS: BP 172/111
[2020-02-13] MEDS: INSULIN GLARGINE SYRINGE. SQ SCH (21:00)
[2020-02-13] MEDS ORDERED: ATORVASTATIN CALCIUM 10 MG TABLET. PO SCH (21:00)
[2020-02-13] MEDS: LIDOCAINE (700MG/PATCH) PATCH. TD PRN (21:45)
[2020-02-13] MEDS: oxyCODONE IR 5 MG TABLET PO PRN (21:46)
[2020-02-13 23:40] VITALS: BP 208/124
[2020-02-14] VITALS (8 sets, daily range): BP systolic 157–206; BP diastolic 84–111
[2020-02-14] MEDS: hydrALAZINE 20 MG/ML VIAL. IVP PRN ×2 (00:01→17:36)
[2020-02-14 05:01] LABS: CALCIUM 8.2 mg/dL (8.5-10.1); CREATININE 1.3 mg/dL (0.6-1.0); GFR 53.6; MAGNESIUM 2.1 mg/dL (1.8-2.4); POTASSIUM 3.8 mmol/L (3.5-5.1)
[2020-02-14] MEDS: ASPIRIN ENTERIC COATED 81 MG TABLET.DR. PO SCH (10:07)
[2020-02-14] MEDS: amLODIPine BESYLATE 10 MG TABLET PO SCH (10:07)
[2020-02-14] MEDS: TORSEMIDE 20 MG TABLET. PO SCH ×2 (10:08→20:56)
[2020-02-14] MEDS: LOSARTAN POTASSIUM 25 MG TABLET. PO SCH (10:08)
[2020-02-14] MEDS: oxyCODONE/APAP 10/325 1 TAB TABLET PO PRN ×2 (10:09→17:34)
[2020-02-14] MEDS: INSULIN LISPRO 300 UNITS/3 ML VIAL. SQ SCH ×3 (10:16→17:44)
--- NOTE | 2020-02-14 10:29 | PDOC ---
PROGRESS NOTES Chief Complaint Chief Complaint Acute on chronic systolic and diastolic heart failure NSTEMI hypokalemia , now severe on replacement HYPERTENSION MORBID OBESITY Hyperlipidemia possible pneumonia Mild basal infiltrates could be discoid atelectasis or pneumonia. suspect underlying chronic obstructive pulmonary disease. chronic renal disease . STAGE 3 diabetes hx noncompliance hxTHC abuse Occlusion of the right superficial femoral artery. Peripheral vascular disease with prior right below-knee amputation. History of Present Illness History of Present Illness PT and OT, may likely need skilled cont current consult physiatry, she complains of poorly fitting prosthetic leg, Replace potassium. IV Lasix . Trend labs, home meds, DVT prophylaxis. Full code. CVC BED , Cardiac monitoring. glucose control HEPARIN DRIP RIGHT LEG ARTERIAL DOPPLER Vitals Vitals Vital Signs Date Time Temp Pulse Resp B/P (MAP) Pulse Ox O2 Delivery O2 Flow Rate FiO2 02/14/20 10:09 Nasal Cannula 2.0 02/14/20 10:08 171/87 02/14/20 07:00 98.0 109 20 97 98.0 Physical Exam Physical Exam GENERAL: No apparent distress. Alert and oriented. HEENT: Normal cephalic atraumatic, external auditory canals are patent. EYES: Extraocular muscles are intact, pupils are equally round and reactive to light and accommodation. MUSCULOSKELETAL: Well developed, well nourished, good range of motion. ENDOCRINE: No thyromegaly was palpated. LYMPHATICS: No cervical chain or axillary nodes were noted. HEMATOPOIETIC: No bruising. NECK: Supple, no JVD, no thyromegaly was noted. LUNGS: slight crackles. HEART: RRR, S1, S2 present. Peripheral pulses intact, no obvious murmurs were noted. ABDOMEN: Soft, nontender. Positive bowel sounds no organomegaly, normal bowel sounds. EXTREMITIES: She has a left BKA. She has right lower extremity swelling, at 2+ edema. NEUROLOGIC: Normal speech, normal tone. A & O x3, moves all extremities, no obvious focal deficits. PSYCHIATRIC: Normal affect, normal mood. Stable. SKIN: No ulcerations or rashes, good skin turgor, no jaundice. VASCULAR: Good capillary refill, neurovascular bundle appears to be intact. General: No acute distress, mild distress Heart: Regular rate Lungs: Clear Abdomen: Normal bowel sounds Extremities: Normal pulses, Other (Bilateral edema, even to stumpon left, better, ) Skin: No breakdown Labs LABS Laboratory Tests Test 02/13/20 11:31 02/13/20 17:02 02/13/20 20:49 02/14/20 02:55 Glucose (Fingerstick) 186 mg/dL (70-99) 146 mg/dL (70-99) 192 mg/dL (70-99) Sodium Level 145 mmol/L (136-145) Potassium Level 3.8 mmol/L (3.5-5.1) Chloride Level 106 mmol/L (98-107) Carbon Dioxide Level 29 mmol/L (21-32) Anion Gap 10 (6-14) Blood Urea Nitrogen 19 mg/dL (7-20) Creatinine 1.3 mg/dL (0.6-1.0) Estimated GFR (Cockcroft-Gault) 53.6 Glucose Level 116 mg/dL (70-99) Calcium Level 8.2 mg/dL (8.5-10.1) Magnesium Level 2.1 mg/dL (1.8-2.4) Test 02/14/20 07:28 Glucose (Fingerstick) 119 mg/dL (70-99) Assessment and Plan Assessmemt and Plan Problems Medical Problems: (1) NSTEMI (non-ST elevated myocardial infarction) Status: Acute Comment Review of Relevant I have reviewed the following items myesha (where applicable) has been applied. Labs Laboratory Tests Test 02/12/20 12:39 02/12/20 17:00 02/12/20 17:02 02/12/20 21:05 Glucose (Fingerstick) 88 mg/dL (70-99) 196 mg/dL (70-99) 231 mg/dL (70-99) Heparin Anti-Xa Act, Unfractionated 0.29 IU/mL (0.30-0.70) Sodium Level 145 mmol/L (136-145) Potassium Level 3.3 mmol/L (3.5-5.1) Chloride Level 107 mmol/L (98-107) Carbon Dioxide Level 31 mmol/L (21-32) Anion Gap 7 (6-14) Blood Urea Nitrogen 20 mg/dL (7-20) Creatinine 1.3 mg/dL (0.6-1.0) Estimated GFR (Cockcroft-Gault) 53.6 Glucose Level 179 mg/dL (70-99) Calcium Level 7.4 mg/dL (8.5-10.1) Test 02/13/20 02:50 02/13/20 07:44 02/13/20 08:45 02/13/20 11:31 White Blood Count 10.1 x10^3/uL (4.0-11.0) Red Blood Count 4.37 x10^6/uL (3.50-5.40) Hemoglobin 12.9 g/dL (12.0-15.5) Hematocrit 38.2 % (36.0-47.0) Mean Corpuscular Volume 87 fL (79-100) Mean Corpuscular Hemoglobin 30 pg (25-35) Mean Corpuscular Hemoglobin Concent 34 g/dL (31-37) Red Cell Distribution Width 15.6 % (11.5-14.5) Platelet Count 227 x10^3/uL (140-400) Heparin Anti-Xa Act, Unfractionated 0.36 IU/mL (0.30-0.70) 0.59 IU/mL (0.30-0.70) Sodium Level 142 mmol/L (136-145) Potassium Level 2.9 mmol/L (3.5-5.1) Chloride Level 105 mmol/L (98-107) Carbon Dioxide Level 33 mmol/L (21-32) Anion Gap 4 (6-14) Blood Urea Nitrogen 19 mg/dL (7-20) Creatinine 1.3 mg/dL (0.6-1.0) Estimated GFR (Cockcroft-Gault) 53.6 Glucose Level 220 mg/dL (70-99) Calcium Level 7.5 mg/dL (8.5-10.1) Magnesium Level 1.6 mg/dL (1.8-2.4) Glucose (Fingerstick) 173 mg/dL (70-99) 186 mg/dL (70-99) Triglycerides Level 220 mg/dL (0-150) Cholesterol Level 273 mg/dL (0-200) LDL Cholesterol, Calculated 173 mg/dL (0-100) VLDL Cholesterol, Calculated 44 mg/dL (0-40) Non-HDL Cholesterol Calculated 217 mg/dL (0-129) HDL Cholesterol 56 mg/dL (40-60) Cholesterol/HDL Ratio 4.9 Thyroid Stimulating Hormone (TSH) 1.594 uIU/mL (0.358-3.74) Test 02/13/20 17:02 02/13/20 20:49 02/14/20 02:55 02/14/20 07:28 Glucose (Fingerstick) 146 mg/dL (70-99) 192 mg/dL (70-99) 119 mg/dL (70-99) Sodium Level 145 mmol/L (136-145) Potassium Level 3.8 mmol/L (3.5-5.1) Chloride Level 106 mmol/L (98-107) Carbon Dioxide Level 29 mmol/L (21-32) Anion Gap 10 (6-14) Blood Urea Nitrogen 19 mg/dL (7-20) Creatinine 1.3 mg/dL (0.6-1.0) Estimated GFR (Cockcroft-Gault) 53.6 Glucose Level 116 mg/dL (70-99) Calcium Level 8.2 mg/dL (8.5-10.1) Magnesium Level 2.1 mg/dL (1.8-2.4) Laboratory Tests Test 02/13/20 11:31 02/13/20 17:02 02/13/20 20:49 02/14/20 02:55 Glucose (Fingerstick) 186 mg/dL (70-99) 146 mg/dL (70-99) 192 mg/dL (70-99) Sodium Level 145 mmol/L (136-145) Potassium Level 3.8 mmol/L (3.5-5.1) Chloride Level 106 mmol/L (98-107) Carbon Dioxide Level 29 mmol/L (21-32) Anion Gap 10 (6-14) Blood Urea Nitrogen 19 mg/dL (7-20) Creatinine 1.3 mg/dL (0.6-1.0) Estimated GFR (Cockcroft-Gault) 53.6 Glucose Level 116 mg/dL (70-99) Calcium Level 8.2 mg/dL (8.5-10.1) Magnesium Level 2.1 mg/dL (1.8-2.4) Test 02/14/20 07:28 Glucose (Fingerstick) 119 mg/dL (70-99) Medications Current Medications Aspirin (Aspirin Chewable) 324 mg 1X ONCE PO Last administered on 02/10/20at 20:36; Start 02/10/20 at 20:00; Stop 02/10/20 at 20:01; Status DC Heparin Sodium (Porcine) (Heparin Sodium) 4,000 unit 1X ONCE IV Last administered on 02/10/20 21:31; Start 02/10/20 at 21:30; Stop 02/10/20 at 21:31; Status DC Heparin Sodium/ Dextrose 250 ml @ 0 mls/hr CONT IV ; Start 02/10/20 at 21:15; Status UNV Heparin Sodium/ Dextrose 250 ml @ 0 mls/hr CONT PRN IV PER PROTOCOL Last administered on 02/12/20at 21:10; Start 02/10/20 at 21:30 Heparin Sodium (Porcine) (Heparin Sodium) 2,950 unit PRN Q6HRS PRN IV FOR UFH LEVEL LESS THAN 0.2; Start 02/10/20 at 21:30 Info (Anti-Coagulation Monitoring By Pharmacy) 1 each PRN DAILY PRN MC SEE COMMENTS Last administered on 02/11/20at 01:59; Start 02/10/20 at 21:30 Insulin Glargine (Lantus Syringe) 65 unit QHS SQ Last administered on 02/11/20at 21:19; Start 02/11/20 at 01:00 Dextrose (Dextrose 50%-Water Syringe) 12.5 gm PRN Q15MIN PRN IV SEE COMMENTS; Start 02/11/20 at 00:30 Insulin Human Lispro (HumaLOG) 35 units TIDWMEALS SQ Last administered on 02/14/20at 10:16; Start 02/11/20 at 08:00 Insulin Human Lispro (HumaLOG) 20 units 1X ONCE SQ Last administered on 02/11/20at 00:40; Start 02/11/20 at 01:00; Stop 02/11/20 at 01:01; Status DC Fentanyl Citrate (Fentanyl 2ml Vial) 50 mcg PRN Q2HR PRN IVP SEVERE PAIN 7-10 Last administered on 02/13/20at 15:44; Start 02/11/20 at 00:30 Fluconazole (Diflucan) 150 mg 1X ONCE PO Last administered on 02/11/20at 13:11; Start 02/11/20 at 12:00; Stop 02/11/20 at 12:01; Status DC Phenazopyridine HCl (Pyridium) 200 mg PRN Q6HRS PRN PO URINARY PAIN Last administered on 02/12/20at 21:22; Start 02/11/20 at 11:45 Potassium Chloride (Klor-Con) 20 meq 1X ONCE PO Last administered on 02/11/20at 13:11; Start 02/11/20 at 12:00; Stop 02/11/20 at 12:01; Status DC Losartan Potassium (Cozaar) 50 mg DAILY PO Last administered on 02/12/20at 09:33; Start 02/11/20 at 12:00; Stop 02/12/20 at 14:33; Status DC Torsemide (Demadex) 20 mg BID PO Last administered on 02/14/20at 10:08; Start 02/11/20 at 12:00 Potassium Chloride (Klor-Con) 30 meq DAILYWBKFT PO ; Start 02/11/20 at 13:00; Stop 02/11/20 at 15:28; Status DC Potassium Chloride (Klor-Con) 30 meq 1X PO ; Start 02/11/20 at 16:00 Potassium Chloride (Klor-Con) 40 meq 1X ONCE PO Last administered on 02/12/20at 06:45; Start 02/12/20 at 06:30; Stop 02/12/20 at 06:31; Status DC Potassium Chloride (Klor-Con) 40 meq 1X ONCE PO Last administered on 02/12/20at 09:37; Start 02/12/20 at 08:30; Stop 02/12/20 at 08:31; Status DC Potassium Chloride (Klor-Con) 40 meq 1X ONCE PO ; Start 02/12/20 at 10:30; Stop 02/12/20 at 10:31; Status DC Losartan Potassium (Cozaar) 75 mg DAILY PO Last administered on 02/14/20at 10:08; Start 02/13/20 at 09:00 Losartan Potassium (Cozaar) 25 mg 1X ONCE PO Last administered on 02/12/20at 16:32; Start 02/12/20 at 14:30; Stop 02/12/20 at 14:38; Status DC Lidocaine (Lidoderm) 1 patch PRN DAILY PRN TD PAIN Last administered on 02/13/20 at 21:45; Start 02/12/20 at 19:30 Acetaminophen (Tylenol) 650 mg PRN Q6HRS PRN PO PAIN Last administered on 02/12/20at 21:22; Start 02/12/20 at 19:30 Magnesium Sulfate 50 ml @ 25 mls/hr 1X ONCE IV Last administered on 02/13/20at 03:45; Start 02/13/20 at 04:00; Stop 02/13/20 at 05:59; Status DC Potassium Chloride (Klor-Con) 40 meq 1X ONCE PO Last administered on 02/13/20at 05:59; Start 02/13/20 at 06:00; Stop 02/13/20 at 06:01; Status DC Potassium Chloride (Klor-Con) 40 meq 1X ONCE PO Last administered on 02/13/20at 08:12; Start 02/13/20 at 08:00; Stop 02/13/20 at 08:01; Status DC Potassium Chloride (Klor-Con) 40 meq 1X ONCE PO Last administered on 02/13/20at 11:13; Start 02/13/20 at 10:00; Stop 02/13/20 at 10:01; Status DC Oxycodone/ Acetaminophen (Percocet 10/325) 1 tab PRN Q4HRS PRN PO pain Last administered on 02/14/20at 10:09; Start 02/13/20 at 12:00 Oxycodone HCl (Roxicodone) 20 mg PRN Q6HRS PRN PO PAIN/IF PERCOCET FAIL TO HELP Last administered on 02/13/20at 21:46; Start 02/13/20 at 12:00 Hydralazine HCl (Apresoline Inj) 10 mg PRN Q4HRS PRN IVP ELEVATED BP, SEE COMMENTS Last administered on 02/14/20at 00:01; Start 02/13/20 at 13:00 Regadenoson (Lexiscan) 0.4 mg 1X ONCE IV Last administered on 02/13/20at 14:58; Start 02/13/20 at 13:30; Stop 02/13/20 at 13:31; Status DC Ondansetron HCl (Zofran) 4 mg PRN Q4HRS PRN IVP NAUSEA/VOMITING Last administered on 02/13/20at 15:44; Start 02/13/20 at 15:30 Amlodipine Besylate (Norvasc) 10 mg DAILY PO Last administered on 02/14/20at 10:07; Start 02/14/20 at 09:00 Atorvastatin Calcium (Lipitor) 10 mg QHS PO Last administered on 02/13/20at 21:46; Start 02/13/20 at 21:00 Aspirin (Ecotrin) 81 mg DAILYWBKFT PO Last administered on 02/14/20at 10:07; Start 02/14/20 at 08:00 Active Scripts Active Reported Tizanidine Hcl 2 Mg Tablet 2 Mg PO PRN Q6HRS PRN Losartan Potassium 50 Mg Tablet 50 Mg PO DAILY Montelukast Sodium Tablet (Montelukast Sodium) 10 Mg Tablet 10 Mg PO HS Torsemide 20 Mg Tablet 2 Tab PO DAILY Furosemide 80 Mg Tablet 1 Tab PO BID Xarelto (Rivaroxaban) 20 Mg Tablet 1 Tab PO DAILY 30 Days with food Lovastatin 40 Mg Tablet 40 Mg PO HS Humalog (Insulin Lispro) 100 Unit/1 Ml Insuln.pen 35 Unit SQ TIDWMEALS Lantus Solostar (Insulin Glargine,Hum.rec.anlog) 100 Unit/1 Ml Insuln.pen 65 Unit SQ QHS Gabapentin (Gabapentin) 300 Mg Capsule 300 Mg PO TID Amlodipine Besylate 10 Mg Tablet 10 Mg PO DAILY Vitals/I & O Vital Sign - Last 24 Hours 02/13/20 02/13/20 02/13/20 02/13/20 11:15 15:12 15:44 16:15 Temp 97.8 98.1 97.8 98.1 Pulse 85 93 Resp 20 20 B/P (MAP) 184/100 (128) 144/96 (112) Pulse Ox 97 97 O2 Delivery Room Air Room Air Room Air Room Air 02/13/20 02/13/20 02/13/20 02/13/20 17:48 18:48 19:35 20:08 Temp 98.2 98.2 Pulse 90 Resp 22 22 B/P (MAP) 172/111 (131) Pulse Ox 96 O2 Delivery Room Air Room Air Room Air Room Air 02/13/20 02/13/20 02/14/20 02/14/20 21:46 23:40 00:01 00:35 Temp 97.9 97.9 Pulse 88 Resp 20 18 B/P (MAP) 208/124 (152) 200/114 161/92 (115) Pulse Ox 97 O2 Delivery Room Air Room Air 02/14/20 02/14/20 02/14/209/20 02:16 07:00 10:07 10:08 Temp 98.2 98.0 98.2 98.0 Pulse 101 109 Resp 18 20 B/P (MAP) 171/84 (113) 184/94 (124) 171/87 171/87 Pulse Ox 96 97 O2 Delivery Room Air Room Air 02/14/20 10:09 O2 Delivery Nasal Cannula O2 Flow Rate 2.0 Intake and Output 02/13/20 02/13/20 02/14/20 15:00 23:00 07:00 Intake Total 0 ml 480 ml 480 ml Output Total 850 ml 400 ml 950 ml Balance -850 ml 80 ml -470 ml DAGMAR WILSON MD Feb 14, 2020 10:29
--- NOTE | 2020-02-14 10:37 | RAD ---
MR#: [id number] Date of Study: 02/13/2020 Ordering Physician: SABRINA HERRERA, Referring Physician: PRINCESS VELAZQUEZ Tech: RT Carrie (R) (N) APPROVED REPORT Test Type: Pharmacological Stress Nurse/Tech: She Delgado R.N. Test Indications: c/p, elevated troponin Cardiac History: cardiac stent,htn,copd,dm Medications: See Electronic Medical Record Medical History: See Electronic Medical Record Resting ECG: SR w/ inverted T wave in lead AVL,AVr, V1 Resting Heart Rate: 91 bpm Resting Blood Pressure: 173/103mmHg Pretest Chest Pain: No chest pain Nurse/Tech Notes S1S2, lungs CTA Pharm. Details Pharmacologic stress testing was performed using 0.4mg per 5ml of regadenoson given intravenously ove r 7-10 seconds. Stress Symptoms SOB, stomach cramps POST EXERCISE Reason for Termination: Infusion complete Max HR: 108 bpm Max Blood Pressure: 162/94mmHg Blood Pressure response to exercise: Normal blood pressure response during stress. Heart Rate response to exercise: wnl Chest Pain: No. Arrhythmia: No. ST Change: No. INTERPRETATION Stress EKG Conclusion: The resting EKG showed a sinus rhythm with nonspecific ST-T wave changes. The stress EKG shows no significant changes from baseline. No EKG evidence of stress-induced ischemia. Imaging Protocol IMAGE PROTOCOL: Stress Tc-99m/rest Tc-99m 2 days Rest: Stress: Viability: Radiopharm.Tc99m [id number] Sestamibi Dose30.8mCi 30.1mCi Duration 15min. 15min. Img Date 02/14/2020 02/13/2020 Inj-Img Sege31hhn. 60min. Rest Admin Site:IV - Right HandAdministrator:RT Carrie (Bing)(N) Stress Admin Site: IV - Right HandAdministrator: RT Carrie (R)(N) STRESS DATA End Diast. Vol.97.0mlAv. Heart Rate89.0bpm End Syst. Vol.46.0mlCO Index BSA4.6L/min Myocardial Obgi838.0gEject. Zqpezops15.0% Stress Rates Pk. Fill Rate1.87EDV/secLVtime Pk. Fill 151.21msec Pk. Empty Rate4.16ESV/secLVtime Pk. Kplmv846.93msec /3 Pk. Fill0.84EDV/sec Stress Scores Regional WT3.00Summed WT25.00 Regional WM0.00Summed WM7.00 LV Perfusion The stress scans showed mild inferior wall thinning. The rest scans showed mild inferior wall thinning. Nuclear scans showed no significant reversible ischemia. There is mild fixed thinning of the inferio r wall most consistent with a diaphragmatic attenuation defect. Wall Motion Left ventricular systolic function is normal with an ejection fraction of 58%. LV Perf. Quant 17 Seg. SSS4.00 Stress Defect Extent (% LAD)0.00Rest Defect Extent (% LAD)Rev. Defect Extent (% LAD) Stress Defect Extent (% LCX) 18.80Rest Defect Extent (% LCX)Rev. Defect Extent (% LCX) Stress Defect Extent (% RCA)13.30Rest Defect Extent (% RCA)Rev. Defect Extent (% RCA) Stress Defect Extent (% ABEL)8.70Rest Defect Extent (% ABEL)Rev. Defect Extent (% ABEL) Conclusion 1. No EKG evidence of stress-induced ischemia. 2. Nuclear imaging shows no reversible ischemia. 3. Nuclear imaging shows fixed inferior wall thinning most consistent with a diaphragmatic attenuati on defect. 4. Left ventricular systolic function is normal with an ejection fraction of 58%. 5. Moderately low risk Lexiscan nuclear stress test. Signed by : Adama Brown MD Electronically Approved : 02/14/2020 10:37:20
--- NOTE | 2020-02-14 10:54 | NUR ---
SS following up with discharge planning. SS reviewed pt chart and discussed with pt RN. Pt is currently on room air. PT/OT ordered. Pt stating that her prosthesis is ill fitted and does not fit right. [facility] contacted for new right lower prosthesis. SS will continue to follow for discharge planning.
--- NOTE | 2020-02-14 11:12 | PDOC ---
PULMONARY PROGRESS NOTES Subjective c/o SOB with exertion Vitals Vital Signs Date Time Temp Pulse Resp B/P (MAP) Pulse Ox O2 Delivery O2 Flow Rate FiO2 02/14/20 10:09 Nasal Cannula 2.0 02/14/20 10:08 171/87 02/14/20 07:00 98.0 109 20 97 98.0 ROS: No Nausea, No Chest Pain, No Abdominal Pain, No Increase Cough General: Alert, Oriented X4 Lungs: Clear Cardiovascular: S1, S2 Abdomen: Soft, Other (obese) Neuro Exam: Alert, Oriented Extremities: Other (R BKA ) Skin: Warm, Dry Labs Laboratory Tests Test 02/12/20 12:39 02/12/20 17:00 02/12/20 17:02 02/12/20 21:05 Glucose (Fingerstick) 88 mg/dL (70-99) 196 mg/dL (70-99) 231 mg/dL (70-99) Heparin Anti-Xa Act, Unfractionated 0.29 IU/mL (0.30-0.70) Sodium Level 145 mmol/L (136-145) Potassium Level 3.3 mmol/L (3.5-5.1) Chloride Level 107 mmol/L (98-107) Carbon Dioxide Level 31 mmol/L (21-32) Anion Gap 7 (6-14) Blood Urea Nitrogen 20 mg/dL (7-20) Creatinine 1.3 mg/dL (0.6-1.0) Estimated GFR (Cockcroft-Gault) 53.6 Glucose Level 179 mg/dL (70-99) Calcium Level 7.4 mg/dL (8.5-10.1) Test 02/13/20 02:50 02/13/20 07:44 02/13/20 08:45 02/13/20 11:31 White Blood Count 10.1 x10^3/uL (4.0-11.0) Red Blood Count 4.37 x10^6/uL (3.50-5.40) Hemoglobin 12.9 g/dL (12.0-15.5) Hematocrit 38.2 % (36.0-47.0) Mean Corpuscular Volume 87 fL (79-100) Mean Corpuscular Hemoglobin 30 pg (25-35) Mean Corpuscular Hemoglobin Concent 34 g/dL (31-37) Red Cell Distribution Width 15.6 % (11.5-14.5) Platelet Count 227 x10^3/uL (140-400) Heparin Anti-Xa Act, Unfractionated 0.36 IU/mL (0.30-0.70) 0.59 IU/mL (0.30-0.70) Sodium Level 142 mmol/L (136-145) Potassium Level 2.9 mmol/L (3.5-5.1) Chloride Level 105 mmol/L (98-107) Carbon Dioxide Level 33 mmol/L (21-32) Anion Gap 4 (6-14) Blood Urea Nitrogen 19 mg/dL (7-20) Creatinine 1.3 mg/dL (0.6-1.0) Estimated GFR (Cockcroft-Gault) 53.6 Glucose Level 220 mg/dL (70-99) Calcium Level 7.5 mg/dL (8.5-10.1) Magnesium Level 1.6 mg/dL (1.8-2.4) Glucose (Fingerstick) 173 mg/dL (70-99) 186 mg/dL (70-99) Triglycerides Level 220 mg/dL (0-150) Cholesterol Level 273 mg/dL (0-200) LDL Cholesterol, Calculated 173 mg/dL (0-100) VLDL Cholesterol, Calculated 44 mg/dL (0-40) Non-HDL Cholesterol Calculated 217 mg/dL (0-129) HDL Cholesterol 56 mg/dL (40-60) Cholesterol/HDL Ratio 4.9 Thyroid Stimulating Hormone (TSH) 1.594 uIU/mL (0.358-3.74) Test 02/13/20 17:02 02/13/20 20:49 02/14/20 02:55 02/14/20 07:28 Glucose (Fingerstick) 146 mg/dL (70-99) 192 mg/dL (70-99) 119 mg/dL (70-99) Sodium Level 145 mmol/L (136-145) Potassium Level 3.8 mmol/L (3.5-5.1) Chloride Level 106 mmol/L (98-107) Carbon Dioxide Level 29 mmol/L (21-32) Anion Gap 10 (6-14) Blood Urea Nitrogen 19 mg/dL (7-20) Creatinine 1.3 mg/dL (0.6-1.0) Estimated GFR (Cockcroft-Gault) 53.6 Glucose Level 116 mg/dL (70-99) Calcium Level 8.2 mg/dL (8.5-10.1) Magnesium Level 2.1 mg/dL (1.8-2.4) Laboratory Tests Test 02/13/20 11:31 02/13/20 17:02 02/13/20 20:49 02/14/20 02:55 Glucose (Fingerstick) 186 mg/dL (70-99) 146 mg/dL (70-99) 192 mg/dL (70-99) Sodium Level 145 mmol/L (136-145) Potassium Level 3.8 mmol/L (3.5-5.1) Chloride Level 106 mmol/L (98-107) Carbon Dioxide Level 29 mmol/L (21-32) Anion Gap 10 (6-14) Blood Urea Nitrogen 19 mg/dL (7-20) Creatinine 1.3 mg/dL (0.6-1.0) Estimated GFR (Cockcroft-Gault) 53.6 Glucose Level 116 mg/dL (70-99) Calcium Level 8.2 mg/dL (8.5-10.1) Magnesium Level 2.1 mg/dL (1.8-2.4) Test 02/14/20 07:28 Glucose (Fingerstick) 119 mg/dL (70-99) Medications Active Scripts Medications Dose Route/Sig Max Daily Dose Days Date Category Dose Instructions Tizanidine Hcl 2 Mg Tablet 2 Mg PO PRN Q6HRS PRN 02/10/20 Reported Losartan Potassium 50 Mg Tablet 50 Mg PO DAILY 02/10/20 Reported Montelukast Sodium Tablet (Montelukast Sodium) 10 Mg Tablet 10 Mg PO HS 02/10/20 Reported Torsemide 20 Mg Tablet 2 Tab PO DAILY 02/10/20 Reported Furosemide 80 Mg Tablet 1 Tab PO BID 02/10/20 Reported Xarelto (Rivaroxaban) 20 Mg Tablet 1 Tab PO DAILY 30 02/10/20 Reported with food Lovastatin 40 Mg Tablet 40 Mg PO HS 02/09/18 Reported Humalog (Insulin Lispro) 100 Unit/1 Ml Insuln.pen 35 Unit SQ TIDWMEALS 02/09/18 Reported Lantus Solostar (Insulin Glargine,Hum.rec.anlog) 100 Unit/1 Ml Insuln.pen 65 Unit SQ QHS 02/09/18 Reported Gabapentin (Gabapentin) 300 Mg Capsule 300 Mg PO TID 02/09/18 Reported Amlodipine Besylate 10 Mg Tablet 10 Mg PO DAILY 02/09/18 Reported Comments CXR 02/11/2020 Impression: Mild basal infiltrates could be discoid atelectasis or pneumonia. LE U/S Impression: No evidence of DVT. Impression . IMPRESSION: 1. Dyspnea with generalized edema. Consistent with mild congestive heart failure, likely diastolic- still c/o soa 2. Hypertension, 3. Acute kidney injury versus chronic kidney disease. 4. Mildly increased troponin level. 5. Long history of tobacco use, suspect underlying chronic obstructive pulmonary disease. 6. Ongoing marijuana use. 7. Peripheral vascular disease with prior right below-knee amputation. 8. swollen eyelids, check TSH Plan . : 1. From a pulmonary standpoint she is on RA but c/o SOA. will do non contrast ct chest 2. P.r.n. Lasix. 3. Follow cardiology recommendations-- stress test neg 4. Follow nephrology recs 5. Outpatient PFTs. 6. TSH level normal D/W NATALIE NIXON MD Feb 14, 2020 11:12
--- NOTE | 2020-02-14 11:30 | PDOC ---
Renal-Progress Notes Subjective Notes Notes NO NEW COMPLAINTS History of Present Illness Hx of present illness STABLE Vitals Vitals Vital Signs Date Time Temp Pulse Resp B/P (MAP) Pulse Ox O2 Delivery O2 Flow Rate FiO2 02/14/20 10:09 Nasal Cannula 2.0 02/14/20 10:08 171/87 02/14/20 07:00 98.0 109 20 97 98.0 Weight Weight [ ] I.O. Intake and Output Intake and Output 02/14/20 07:00 Intake Total 960 ml Output Total 2200 ml Balance -1240 ml Intake Oral 960 ml Output Urine Total 2200 ml # Bowel Movements 3 Labs Labs Laboratory Tests Test 02/13/20 11:31 02/13/20 17:02 02/13/20 20:49 02/14/20 02:55 Glucose (Fingerstick) 186 mg/dL (70-99) 146 mg/dL (70-99) 192 mg/dL (70-99) Sodium Level 145 mmol/L (136-145) Potassium Level 3.8 mmol/L (3.5-5.1) Chloride Level 106 mmol/L (98-107) Carbon Dioxide Level 29 mmol/L (21-32) Anion Gap 10 (6-14) Blood Urea Nitrogen 19 mg/dL (7-20) Creatinine 1.3 mg/dL (0.6-1.0) Estimated GFR (Cockcroft-Gault) 53.6 Glucose Level 116 mg/dL (70-99) Calcium Level 8.2 mg/dL (8.5-10.1) Magnesium Level 2.1 mg/dL (1.8-2.4) Test 02/14/20 07:28 Glucose (Fingerstick) 119 mg/dL (70-99) Review of Systems Constitutional: yes: alert, oriented Ears/Nose/Throat: Yes: no symptom reported Eyes: Yes: no symptom reported Pulmonary: Yes no symptom reported Cardiovascular: Yes no symptom reported Genitourinary: Yes: no symptom reported Musculoskeletal: Yes: no symptom reported Skin: Yes no symptom reported Psychiatric/Neurological: Yes: no symptom reported Endocrine: Yes: no symptom reported Physical Exam General Appearance: no apparent distress Skin: warm Respiratory: bilateral CTA Heart: S1S2 Abdomen: soft, bowel sounds present Genitourinary: bladder flat Extremities: pulses present Neurology: alert, oriented, follow commands Musculoskeletal: Stiffness Assessment Assessment IMP CKD STAGE 3 HYPOKALEMIA-CORRECTED LOW MAG-CORRECTED DYSPNEA-RESOLVED GENERALIZED EDEMA UNCONTROLLED HTN-BETTER PROB COPD OBESITY PAD DM II PLAN CONT TORSEMIDE ENC COMPLIANCE CARDIOLOGY EVALUATION WILL SIGN OFF ROSANNE OROZCO MD Feb 14, 2020 11:30
--- NOTE | 2020-02-14 12:09 | PDOC ---
CARDIO Progress Notes Date and Time Date of Service 02/14/20 Time of Evaluation 1230 Subjective Subjective: No Chest Pain, No shortness of breath, Other (LE edema much better) Vitals Vitals Vital Signs Date Time Temp Pulse Resp B/P (MAP) Pulse Ox O2 Delivery O2 Flow Rate FiO2 02/14/20 10:09 Nasal Cannula 2.0 02/14/20 10:08 171/87 02/14/20 07:00 98.0 109 20 97 98.0 Weight Weight [ ] Input and Output Intake and Output Intake and Output 02/14/20 07:00 Intake Total 960 ml Output Total 2200 ml Balance -1240 ml Intake Oral 960 ml Output Urine Total 2200 ml # Bowel Movements 3 Laboratory Labs Laboratory Tests Test 02/13/20 17:02 02/13/20 20:49 02/14/20 02:55 02/14/20 07:28 Glucose (Fingerstick) 146 mg/dL (70-99) 192 mg/dL (70-99) 119 mg/dL (70-99) Sodium Level 145 mmol/L (136-145) Potassium Level 3.8 mmol/L (3.5-5.1) Chloride Level 106 mmol/L (98-107) Carbon Dioxide Level 29 mmol/L (21-32) Anion Gap 10 (6-14) Blood Urea Nitrogen 19 mg/dL (7-20) Creatinine 1.3 mg/dL (0.6-1.0) Estimated GFR (Cockcroft-Gault) 53.6 Glucose Level 116 mg/dL (70-99) Calcium Level 8.2 mg/dL (8.5-10.1) Magnesium Level 2.1 mg/dL (1.8-2.4) Test 02/14/20 11:46 Glucose (Fingerstick) 118 mg/dL (70-99) Review of Systems Constitutional: yes: alert, oriented Ears/Nose/Throat: Yes: no symptom reported Eyes: Yes: no symptom reported Pulmonary: Yes no symptom reported Cardiovascular: Yes no symptom reported Genitourinary: Yes: no symptom reported Musculoskeletal: Yes: no symptom reported Skin: Yes no symptom reported Psychiatric/Neurological: Yes: no symptom reported Endocrine: Yes: no symptom reported Physical Exam HEENT: Neck Supple W Full Motion Chest: Symmetric LUNGS: Clear to Auscultation, Other (diminished ) Heart: S1S2, RRR Abdomen: Soft N/T, Other (obese ) Extremities: Other (1+ LLE edema. RLE BKA. Partial left foot amputation) Neurology: alert, oriented, follow commands Assessment Assessment 1. Generalized edema, anasarca. Improved 2. Mild acute on chronic diastolic CHF; echo with preserved LV systolic function 3. Chest pain, atypical. MPI without evidence of ischemia 4. Mild troponin at 0.134. Echo with preserved LV systolic function 5. PVD s/p right BKA and partial left foot amputation. 6. Diabetes, II; uncontrolled 7. Hypertension; labile 8. Hyperlipidemia; LDL 173 9. COPD with continued tobacco abuse. Discussed/encouraged cessation 10. YASMIN on CKD; improved. On Torsemide and Lasix at home? 10. Hypomagnesemia; replaced 11. H/o DVT on Xarelto Recommendations ASA Increase statin therapy Continue torsemide Hydralazine IV PRN Supportive care Justicifation of Admission Dx: Justifications for Admission: Justification of Admission Dx: Yes SABRINA HERRERA APRN Feb 14, 2020 12:09
--- NOTE | 2020-02-14 13:36 | CONS ---
DATE OF CONSULTATION: 02/14/2020 ATTENDING PHYSICIAN: Dr. Brothers. REASON FOR CONSULTATION: The patient was seen at the request of Dr. Brothers for rehab evaluation. HISTORY OF PRESENT ILLNESS: This is a 44-year-old female with diabetes mellitus with peripheral neuropathy, peripheral vascular disease, status post right below knee amputation done in 2017 and has been using a prosthesis and also transmetatarsal amputation of left foot with some sores over lateral aspect of right below-knee stump and distal part of left transmetatarsal foot stump. She apparently had been using a prosthesis and a cane. Lives with her brother in [place], [place]. At home, had no steps for her to manage. The patient apparently had 2 falls in the last couple of months. The patient was admitted on 02/10/2020 with lower extremity swelling and she was found with slightly elevated troponin level. Chest x-ray revealed mild basilar infiltrate, possibly pneumonia, hypokalemia, acute renal failure with creatinine 1.7. The patient also with known chronic obstructive pulmonary disease, hypertension, cerebrovascular accident, cholecystectomy, right below-knee amputation, left foot amputation, tobacco abuse, marijuana use. KNOWN ALLERGIC TO PENICILLIN AND MORPHINE. She admits some lower back pain since the fall. The patient denies any radiation of pain to the extremities. PHYSICAL EXAMINATION: On physical examination today revealed a middle-aged female. She is in no acute distress. She is alert, oriented to time, place, person and circumstance and follows commands appropriately, moves all 4 extremities voluntarily where she had 4+/5 grade muscle strength. She had crepitus on range of motion of her left knee joint with knee joint effusion and some laxity of knee joint collateral ligaments. She had painful range of motion of both hip joints. She had healing wound over the lateral aspect of right below-knee stump. She apparently fell earlier this year while in [place], [place] and she had healing skin lesion, left transmetatarsal stump. The patient takes some time to roll from side to side. She had tenderness to palpation over sacroiliac joint area bilaterally. Straight leg raising test is negative bilaterally. She is obese. She had absent knee and left ankle jerk. She seemed to have equal perception of touch and pinprick sensation bilaterally. ASSESSMENT: A middle-aged female with diabetes mellitus with peripheral neuropathy, status post right below knee amputation and left foot transmetatarsal amputation, obesity, degenerative joint disease of left knee, lower back pain, most probably from degenerative disk disease without any lumbar radiculopathy, chronic obstructive pulmonary disease, hypertension, old cerebrovascular accident without any residual deficits, tobacco and marijuana use. RECOMMENDATIONS: Agree with the plan for physical therapy and occupational therapy to get her up as tolerated. I have advised her about the need for her to use proper shoe to her left foot and right below knee amputation and use a roller walker while up and stop using a cane. She might need a wheelchair to take home at the time of discharge if she is having difficulty to get around. Dr. Brothers, I appreciate asking me to participate in the care of this interesting patient. I will be glad to see her for followup with you on as needed basis. JORGE A DONIS MD DR: BONNIE/deshaun JOB#: [id number] / [id number]
--- NOTE | 2020-02-14 13:48 | RAD ---
Examination: CT CHEST WO CONTRAST History: Reason: dyspnea/ CHF Comparison/Correlation: None Findings: Axial images of the chest were obtained without contrast. Sagittal and coronal reformatted images were provided. Small left pleural effusion is present. Minimal right basilar linear atelectasis or scarring is present. Mild lingular atelectasis versus. No definite infiltrate. No pneumothorax. Pulmonary vasculature is within normal limits. Tracheobronchial tree is unremarkable. Small amount of perihepatic ascites is noted. Minimal left flank region ascites. Cholecystectomy noted. Impression: Small left pleural effusion. Minimal bibasilar atelectasis. No suspicious consolidation or pulmonary vascular congestion. Ascites. PQRS Compliance Statement: One or more of the following individualized dose reduction techniques were utilized for this examination: 1. Automated exposure control 2. Adjustment of the mA and/or kV according to patient size 3. Use of iterative reconstruction technique Electronically signed by: aQmar Salter MD (02/14/2020 1:45 PM) [id number]
--- NOTE | 2020-02-14 14:37 | NUR ---
Wound/Ostomy Care Wound Type/Assessment: R lateral knee/BKA diabetic wound and left anterior TMA diabetic wound, both wounds with callous, left TMA wound bed not visualized but drainage and mild odor noted, will ask Dr. Dove to eval tomorrow Treatment Recommendations/Plan: Both wounds cleansed with wound wash, xeroform and telfa dressings applied, and Dr. Dove will see pt again tomorrow. Education provided: patient Offloading surface/device: Recommended Referrals/Tests: Dr. Dove Discharge Recommendations for dressings: xeroform and telfa q2d.
--- NOTE | 2020-02-14 17:22 | NUR ---
Spoke to Anita lechuga by phone who stated that patient is normal seen by Anita in [facility] and if is seen inpatient at this facility, hospital will be charged for visit. This RN advised that patient states she falls at home because prosthetic is ill fitting and needs to be replaced. Also has callouses and old wound on stump due to not fitting well. Anita major account representative stated she would have a service rep call us on Thursday.
--- NOTE | 2020-02-14 19:30 | NUR ---
Assessment completed vss poc explained pt denied pain at this time pt talkative and tearful will resume care and continue to monitor pt.
[2020-02-14] MEDS: oxyCODONE IR 5 MG TABLET PO PRN (20:56)
[2020-02-14] MEDS ORDERED: ATORVASTATIN CALCIUM 10 MG TABLET. PO SCH (21:00)
[2020-02-14] MEDS: INSULIN GLARGINE SYRINGE. SQ SCH (21:03)
[2020-02-15 03:40] VITALS: BP 159/101
[2020-02-15 03:43] LABS: HEMATOCRIT 43.5 % (36.0-47.0); HEMOGLOBIN 14.9 g/dL (12.0-15.5); RED BLOOD COUNT 4.95 x10^6/uL (3.50-5.40); RED CELL DISTRIBUTION WIDTH 15.5 % (11.5-14.5); WHITE BLOOD COUNT 9.4 x10^3/uL (4.0-11.0)
[2020-02-15 07:00] VITALS: BP 159/90
[2020-02-15] MEDS: INSULIN LISPRO 300 UNITS/3 ML VIAL. SQ SCH ×2 (08:00→12:00)
--- NOTE | 2020-02-15 08:02 | PDOC ---
PROGRESS NOTES Chief Complaint Chief Complaint Acute on chronic systolic and diastolic heart failure NSTEMI hypokalemia , now severe on replacement HYPERTENSION MORBID OBESITY Hyperlipidemia possible pneumonia Mild basal infiltrates could be discoid atelectasis or pneumonia. suspect underlying chronic obstructive pulmonary disease. chronic renal disease . STAGE 3 diabetes hx noncompliance hxTHC abuse Occlusion of the right superficial femoral artery. Peripheral vascular disease with prior right below-knee amputation. History of Present Illness History of Present Illness PT and OT, may likely need skilled cont current she complains of poorly fitting prosthetic leg, leg wounds, Dr. Dove to see, Replace potassium. IV Lasix . Trend labs, home meds, DVT prophylaxis. Full code. CVC BED , Cardiac monitoring. glucose control HEPARIN DRIP RIGHT LEG ARTERIAL DOPPLER Vitals Vitals Vital Signs Date Time Temp Pulse Resp B/P (MAP) Pulse Ox O2 Delivery O2 Flow Rate FiO2 02/15/20 07:00 97.7 90 22 159/90 (113) 98 Room Air 97.7 02/14/20 10:09 2.0 Physical Exam Physical Exam GENERAL: No apparent distress. Alert and oriented. HEENT: Normal cephalic atraumatic, external auditory canals are patent. EYES: Extraocular muscles are intact, pupils are equally round and reactive to light and accommodation. MUSCULOSKELETAL: Well developed, well nourished, good range of motion. ENDOCRINE: No thyromegaly was palpated. LYMPHATICS: No cervical chain or axillary nodes were noted. HEMATOPOIETIC: No bruising. NECK: Supple, no JVD, no thyromegaly was noted. LUNGS: slight crackles. HEART: RRR, S1, S2 present. Peripheral pulses intact, no obvious murmurs were noted. ABDOMEN: Soft, nontender. Positive bowel sounds no organomegaly, normal bowel sounds. EXTREMITIES: She has a left BKA. She has right lower extremity swelling, at 2+ edema. NEUROLOGIC: Normal speech, normal tone. A & O x3, moves all extremities, no obvious focal deficits. PSYCHIATRIC: Normal affect, normal mood. Stable. SKIN: No ulcerations or rashes, good skin turgor, no jaundice. VASCULAR: Good capillary refill, neurovascular bundle appears to be intact. General: No acute distress, mild distress Heart: Regular rate Lungs: Clear Abdomen: Normal bowel sounds Extremities: Normal pulses, Other (Bilateral edema, even to stumpon left, better, ) Skin: No breakdown Labs LABS Laboratory Tests Test 02/14/20 11:46 02/14/20 16:39 02/14/20 20:54 02/15/20 03:30 Glucose (Fingerstick) 118 mg/dL (70-99) 133 mg/dL (70-99) 91 mg/dL (70-99) White Blood Count 9.4 x10^3/uL (4.0-11.0) Red Blood Count 4.95 x10^6/uL (3.50-5.40) Hemoglobin 14.9 g/dL (12.0-15.5) Hematocrit 43.5 % (36.0-47.0) Mean Corpuscular Volume 88 fL (79-100) Mean Corpuscular Hemoglobin 30 pg (25-35) Mean Corpuscular Hemoglobin Concent 34 g/dL (31-37) Red Cell Distribution Width 15.5 % (11.5-14.5) Platelet Count 238 x10^3/uL (140-400) Test 02/15/20 07:24 Glucose (Fingerstick) 81 mg/dL (70-99) Assessment and Plan Assessmemt and Plan Problems Medical Problems: (1) NSTEMI (non-ST elevated myocardial infarction) Status: Acute Comment Review of Relevant I have reviewed the following items myesha (where applicable) has been applied. Labs Laboratory Tests Test 02/13/20 08:45 02/13/20 11:31 02/13/20 17:02 02/13/20 20:49 Heparin Anti-Xa Act, Unfractionated 0.59 IU/mL (0.30-0.70) Triglycerides Level 220 mg/dL (0-150) Cholesterol Level 273 mg/dL (0-200) LDL Cholesterol, Calculated 173 mg/dL (0-100) VLDL Cholesterol, Calculated 44 mg/dL (0-40) Non-HDL Cholesterol Calculated 217 mg/dL (0-129) HDL Cholesterol 56 mg/dL (40-60) Cholesterol/HDL Ratio 4.9 Thyroid Stimulating Hormone (TSH) 1.594 uIU/mL (0.358-3.74) Glucose (Fingerstick) 186 mg/dL (70-99) 146 mg/dL (70-99) 192 mg/dL (70-99) Test 02/14/20 02:55 02/14/20 07:28 02/14/20 11:46 02/14/20 16:39 Sodium Level 145 mmol/L (136-145) Potassium Level 3.8 mmol/L (3.5-5.1) Chloride Level 106 mmol/L (98-107) Carbon Dioxide Level 29 mmol/L (21-32) Anion Gap 10 (6-14) Blood Urea Nitrogen 19 mg/dL (7-20) Creatinine 1.3 mg/dL (0.6-1.0) Estimated GFR (Cockcroft-Gault) 53.6 Glucose Level 116 mg/dL (70-99) Calcium Level 8.2 mg/dL (8.5-10.1) Magnesium Level 2.1 mg/dL (1.8-2.4) Glucose (Fingerstick) 119 mg/dL (70-99) 118 mg/dL (70-99) 133 mg/dL (70-99) Test 02/14/20 20:54 02/15/20 03:30 02/15/20 07:24 Glucose (Fingerstick) 91 mg/dL (70-99) 81 mg/dL (70-99) White Blood Count 9.4 x10^3/uL (4.0-11.0) Red Blood Count 4.95 x10^6/uL (3.50-5.40) Hemoglobin 14.9 g/dL (12.0-15.5) Hematocrit 43.5 % (36.0-47.0) Mean Corpuscular Volume 88 fL (79-100) Mean Corpuscular Hemoglobin 30 pg (25-35) Mean Corpuscular Hemoglobin Concent 34 g/dL (31-37) Red Cell Distribution Width 15.5 % (11.5-14.5) Platelet Count 238 x10^3/uL (140-400) Laboratory Tests Test 02/14/20 11:46 02/14/20 16:39 02/14/20 20:54 02/15/20 03:30 Glucose (Fingerstick) 118 mg/dL (70-99) 133 mg/dL (70-99) 91 mg/dL (70-99) White Blood Count 9.4 x10^3/uL (4.0-11.0) Red Blood Count 4.95 x10^6/uL (3.50-5.40) Hemoglobin 14.9 g/dL (12.0-15.5) Hematocrit 43.5 % (36.0-47.0) Mean Corpuscular Volume 88 fL (79-100) Mean Corpuscular Hemoglobin 30 pg (25-35) Mean Corpuscular Hemoglobin Concent 34 g/dL (31-37) Red Cell Distribution Width 15.5 % (11.5-14.5) Platelet Count 238 x10^3/uL (140-400) Test 02/15/20 07:24 Glucose (Fingerstick) 81 mg/dL (70-99) Medications Current Medications Aspirin (Aspirin Chewable) 324 mg 1X ONCE PO Last administered on 02/10/20at 20:36; Start 02/10/20 at 20:00; Stop 02/10/20 at 20:01; Status DC Heparin Sodium (Porcine) (Heparin Sodium) 4,000 unit 1X ONCE IV Last administered on 02/10/20at 21:31; Start 02/10/20 at 21:30; Stop 02/10/20 at 21:31; Status DC Heparin Sodium/ Dextrose 250 ml @ 0 mls/hr CONT IV ; Start 02/10/20 at 21:15; Status UNV Heparin Sodium/ Dextrose 250 ml @ 0 mls/hr CONT PRN IV PER PROTOCOL Last administered on 02/12/20at 21:10; Start 02/10/20 at 21:30 Heparin Sodium (Porcine) (Heparin Sodium) 2,950 unit PRN Q6HRS PRN IV FOR UFH LEVEL LESS THAN 0.2; Start 02/10/20 at 21:30 Info (Anti-Coagulation Monitoring By Pharmacy) 1 each PRN DAILY PRN MC SEE COMMENTS Last administered on 02/11/20at 01:59; Start 02/10/20 at 21:30 Insulin Glargine (Lantus Syringe) 65 unit QHS SQ Last administered on 02/14/20at 21:03; Start 02/11/20 at 01:00 Dextrose (Dextrose 50%-Water Syringe) 12.5 gm PRN Q15MIN PRN IV SEE COMMENTS; Start 02/11/20 at 00:30 Insulin Human Lispro (HumaLOG) 35 units TIDWMEALS SQ Last administered on 02/14/20at 17:44; Start 6/6/20 at 08:00 Insulin Human Lispro (HumaLOG) 20 units 1X ONCE SQ Last administered on at 00:40; Start 02/11/20 at 01:00; Stop 02/11/20 at 01:01; Status DC Fentanyl Citrate (Fentanyl 2ml Vial) 50 mcg PRN Q2HR PRN IVP SEVERE PAIN 7-10 Last administered on 02/13/20at 15:44; Start 02/11/20 at 00:30 Fluconazole (Diflucan) 150 mg 1X ONCE PO Last administered on 02/11/20at 13:11; Start 02/11/20 at 12:00; Stop 02/11/20 at 12:01; Status DC Phenazopyridine HCl (Pyridium) 200 mg PRN Q6HRS PRN PO URINARY PAIN Last administered on 02/12/20at 21:22; Start 02/11/20 at 11:45 Potassium Chloride (Klor-Con) 20 meq 1X ONCE PO Last administered on 02/11/20at 13:11; Start 02/11/20 at 12:00; Stop 02/11/20 at 12:01; Status DC Losartan Potassium (Cozaar) 50 mg DAILY PO Last administered on 02/12/20at 09:33; Start 02/11/20 at 12:00; Stop 02/12/20 at 14:33; Status DC Torsemide (Demadex) 20 mg BID PO Last administered on 02/14/20at 20:56; Start 02/11/20 at 12:00 Potassium Chloride (Klor-Con) 30 meq DAILYWBKFT PO ; Start 02/11/20 at 13:00; Stop 02/11/20 at 15:28; Status DC Potassium Chloride (Klor-Con) 30 meq 1X PO ; Start 02/11/20 at 16:00 Potassium Chloride (Klor-Con) 40 meq 1X ONCE PO Last administered on 02/12/20at 06:45; Start 02/12/20 at 06:30; Stop 02/12/20 at 06:31; Status DC Potassium Chloride (Klor-Con) 40 meq 1X ONCE PO Last administered on 02/12/20at 09:37; Start 02/12/20 at 08:30; Stop 02/12/20 at 08:31; Status DC Potassium Chloride (Klor-Con) 40 meq 1X ONCE PO ; Start 02/12/20 at 10:30; Stop 02/12/20 at 10:31; Status DC Losartan Potassium (Cozaar) 75 mg DAILY PO Last administered on 02/14/20at 10:08; Start 02/13/20 at 09:00 Losartan Potassium (Cozaar) 25 mg 1X ONCE PO Last administered on 02/12/20at 16:32; Start 02/12/20 at 14:30; Stop 02/12/20 at 14:38; Status DC Lidocaine (Lidoderm) 1 patch PRN DAILY PRN TD PAIN Last administered on 02/13/20at 21:45; Start 02/12/20 at 19:30 Acetaminophen (Tylenol) 650 mg PRN Q6HRS PRN PO MILD PAIN 1-3 Last administered on 02/12/20at 21:22; Start 02/12/20 at 19:30 Magnesium Sulfate 50 ml @ 25 mls/hr 1X ONCE IV Last administered on 02/13/20at 03:45; Start 02/13/20 at 04:00; Stop 02/13/20 at 05:59; Status DC Potassium Chloride (Klor-Con) 40 meq 1X ONCE PO Last administered on 02/13/20at 05:59; Start 02/13/20 at 06:00; Stop 02/13/20 at 06:01; Status DC Potassium Chloride (Klor-Con) 40 meq 1X ONCE PO Last administered on 02/13/20at 08:12; Start 02/13/20 at 08:00; Stop 02/13/20 at 08:01; Status DC Potassium Chloride (Klor-Con) 40 meq 1X ONCE PO Last administered on 02/13/20at 11:13; Start 02/13/20 at 10:00; Stop 02/13/20 at 10:01; Status DC Oxycodone/ Acetaminophen (Percocet 10/325) 1 tab PRN Q4HRS PRN PO MODERATE- SEVERE PAIN Last administered on 02/14/20at 17:34; Start 02/13/20 at 12:00 Oxycodone HCl (Roxicodone) 20 mg PRN Q6HRS PRN PO PAIN/IF PERCOCET FAIL TO HELP Last administered on 02/14/20at 20:56; Start 02/13/20 at 12:00 Hydralazine HCl (Apresoline Inj) 10 mg PRN Q4HRS PRN IVP ELEVATED BP, SEE COMMENTS Last administered on 02/14/20 17:36; Start 02/13/20 at 13:00 Regadenoson (Lexiscan) 0.4 mg 1X ONCE IV Last administered on 02/13/20at 14:58; Start 02/13/20 at 13:30; Stop 02/13/20 at 13:31; Status DC Ondansetron HCl (Zofran) 4 mg PRN Q4HRS PRN IVP NAUSEA/VOMITING Last administered on 02/13/20at 15:44; Start 02/13/20 at 15:30 Amlodipine Besylate (Norvasc) 10 mg DAILY PO Last administered on 02/14/20at 10:07; Start 02/14/20 at 09:00 Atorvastatin Calcium (Lipitor) 10 mg QHS PO Last administered on 02/13/20at 21:46; Start 02/13/20 at 21:00; Stop 02/14/20 at 12:08; Status DC Aspirin (Ecotrin) 81 mg DAILYWBKFT PO Last administered on 02/14/20at 10:07; Start 02/14/20 at 08:00 Atorvastatin Calcium (Lipitor) 20 mg QHS PO Last administered on 02/14/20at 20:56; Start 02/14/20 at 21:00 Active Scripts Active Reported Tizanidine Hcl 2 Mg Tablet 2 Mg PO PRN Q6HRS PRN Losartan Potassium 50 Mg Tablet 50 Mg PO DAILY Montelukast Sodium Tablet (Montelukast Sodium) 10 Mg Tablet 10 Mg PO HS Torsemide 20 Mg Tablet 2 Tab PO DAILY Furosemide 80 Mg Tablet 1 Tab PO BID Xarelto (Rivaroxaban) 20 Mg Tablet 1 Tab PO DAILY 30 Days with food Lovastatin 40 Mg Tablet 40 Mg PO HS Humalog (Insulin Lispro) 100 Unit/1 Ml Insuln.pen 35 Unit SQ TIDWMEALS Lantus Solostar (Insulin Glargine,Hum.rec.anlog) 100 Unit/1 Ml Insuln.pen 65 Unit SQ QHS Gabapentin (Gabapentin) 300 Mg Capsule 300 Mg PO TID Amlodipine Besylate 10 Mg Tablet 10 Mg PO DAILY Vitals/I & O Vital Sign - Last 24 Hours 6/902/14/20 02/14/20 02/14/20 10:07 10:08 10:09 11:00 Temp 98.2 98.2 Pulse 108 Resp 24 B/P (MAP) 171/87 171/87 171/87 (115) Pulse Ox 98 O2 Delivery Nasal Cannula Room Air O2 Flow Rate 2.0 02/14/20 02/14/20 02/14/20 02/14/20 11:09 14:51 15:02 17:34 Temp 98.1 98.1 Pulse 96 92 Resp 24 B/P (MAP) 206/111 (142) 175/99 (124) Pulse Ox 100 O2 Delivery Room Air Room Air Room Air 02/14/20 02/14/20 02/14/20 02/14/20 17:36 18:55 19:00 19:30 Temp 98.3 98.3 Pulse 103 Resp 18 18 B/P (MAP) 205/107 173/93 (119) Pulse Ox 94 94 O2 Delivery Room Air Room Air Room Air 02/14/20 02/14/20 02/14/20 02/15/20 20:56 21:56 23:00 03:40 Temp 98.9 97.7 98.9 97.7 Pulse 97 102 Resp 18 16 18 20 B/P (MAP) 157/99 (118) 159/101 (120) Pulse Ox 96 97 100 98 O2 Delivery Room Air Room Air Room Air Room Air 02/15/20 07:00 Temp 97.7 97.7 Pulse 90 Resp 22 B/P (MAP) 159/90 (113) Pulse Ox 98 O2 Delivery Room Air Intake and Output 02/14/20 02/14/20 02/15/20 14:59 22:59 06:59 Intake Total 240 ml 360 ml 450 ml Output Total 800 ml 800 ml Balance 240 ml -440 ml -350 ml DAGMAR WILSON MD Feb 15, 2020 08:02
[2020-02-15] MEDS: oxyCODONE/APAP 10/325 1 TAB TABLET PO PRN (08:57)
[2020-02-15] MEDS: amLODIPine BESYLATE 10 MG TABLET PO SCH (08:57)
[2020-02-15] MEDS: TORSEMIDE 20 MG TABLET. PO SCH (08:57)
[2020-02-15] MEDS: LOSARTAN POTASSIUM 25 MG TABLET. PO SCH (08:57)
[2020-02-15] MEDS: ASPIRIN ENTERIC COATED 81 MG TABLET.DR. PO SCH (08:57)
[2020-02-15] MEDS: hydrALAZINE 20 MG/ML VIAL. IVP PRN (10:56)
[2020-02-15 11:21] VITALS: BP 185/97
--- NOTE | 2020-02-15 11:27 | PDOC ---
PULMONARY PROGRESS NOTES Subjective feels much better Vitals Vital Signs Date Time Temp Pulse Resp B/P (MAP) Pulse Ox O2 Delivery O2 Flow Rate FiO2 02/15/20 11:21 97.8 90 20 185/97 (126) 94 Room Air 97.8 02/15/20 09:57 2.0 ROS: No Nausea, No Chest Pain, No Abdominal Pain, No Increase Cough General: Alert, Oriented X4 Lungs: Clear Cardiovascular: S1, S2 Abdomen: Soft, Other (obese) Neuro Exam: Alert, Oriented Extremities: Other (R BKA ) Skin: Warm, Dry Labs Laboratory Tests Test 02/13/20 11:31 02/13/20 17:02 02/13/20 20:49 02/14/20 02:55 Glucose (Fingerstick) 186 mg/dL (70-99) 146 mg/dL (70-99) 192 mg/dL (70-99) Sodium Level 145 mmol/L (136-145) Potassium Level 3.8 mmol/L (3.5-5.1) Chloride Level 106 mmol/L (98-107) Carbon Dioxide Level 29 mmol/L (21-32) Anion Gap 10 (6-14) Blood Urea Nitrogen 19 mg/dL (7-20) Creatinine 1.3 mg/dL (0.6-1.0) Estimated GFR (Cockcroft-Gault) 53.6 Glucose Level 116 mg/dL (70-99) Calcium Level 8.2 mg/dL (8.5-10.1) Magnesium Level 2.1 mg/dL (1.8-2.4) Test 02/14/20 07:28 02/14/20 11:46 02/14/20 16:39 02/14/20 20:54 Glucose (Fingerstick) 119 mg/dL (70-99) 118 mg/dL (70-99) 133 mg/dL (70-99) 91 mg/dL (70-99) Test 02/15/20 03:30 02/15/20 07:24 White Blood Count 9.4 x10^3/uL (4.0-11.0) Red Blood Count 4.95 x10^6/uL (3.50-5.40) Hemoglobin 14.9 g/dL (12.0-15.5) Hematocrit 43.5 % (36.0-47.0) Mean Corpuscular Volume 88 fL (79-100) Mean Corpuscular Hemoglobin 30 pg (25-35) Mean Corpuscular Hemoglobin Concent 34 g/dL (31-37) Red Cell Distribution Width 15.5 % (11.5-14.5) Platelet Count 238 x10^3/uL (140-400) Glucose (Fingerstick) 81 mg/dL (70-99) Laboratory Tests Test 02/14/20 11:46 02/14/20 16:39 02/14/20 20:54 02/15/20 03:30 Glucose (Fingerstick) 118 mg/dL (70-99) 133 mg/dL (70-99) 91 mg/dL (70-99) White Blood Count 9.4 x10^3/uL (4.0-11.0) Red Blood Count 4.95 x10^6/uL (3.50-5.40) Hemoglobin 14.9 g/dL (12.0-15.5) Hematocrit 43.5 % (36.0-47.0) Mean Corpuscular Volume 88 fL (79-100) Mean Corpuscular Hemoglobin 30 pg (25-35) Mean Corpuscular Hemoglobin Concent 34 g/dL (31-37) Red Cell Distribution Width 15.5 % (11.5-14.5) Platelet Count 238 x10^3/uL (140-400) Test 02/15/20 07:24 Glucose (Fingerstick) 81 mg/dL (70-99) Medications Active Scripts Medications Dose Route/Sig Max Daily Dose Days Date Category Dose Instructions Tizanidine Hcl 2 Mg Tablet 2 Mg PO PRN Q6HRS PRN 02/10/20 Reported Losartan Potassium 50 Mg Tablet 50 Mg PO DAILY 02/10/20 Reported Montelukast Sodium Tablet (Montelukast Sodium) 10 Mg Tablet 10 Mg PO HS 02/10/20 Reported Torsemide 20 Mg Tablet 2 Tab PO DAILY 02/10/20 Reported Furosemide 80 Mg Tablet 1 Tab PO BID 02/10/20 Reported Xarelto (Rivaroxaban) 20 Mg Tablet 1 Tab PO DAILY 30 02/10/20 Reported with food Lovastatin 40 Mg Tablet 40 Mg PO HS 02/09/18 Reported Humalog (Insulin Lispro) 100 Unit/1 Ml Insuln.pen 35 Unit SQ TIDWMEALS 02/09/18 Reported Lantus Solostar (Insulin Glargine,Hum.rec.anlog) 100 Unit/1 Ml Insuln.pen 65 Unit SQ QHS 02/09/18 Reported Gabapentin (Gabapentin) 300 Mg Capsule 300 Mg PO TID 02/09/18 Reported Amlodipine Besylate 10 Mg Tablet 10 Mg PO DAILY 02/09/18 Reported Comments CXR 02/11/2020 Impression: Mild basal infiltrates could be discoid atelectasis or pneumonia. LE U/S Impression: No evidence of DVT. Impression . IMPRESSION: 1. Dyspnea with generalized edema. Consistent with mild congestive heart failure, likely diastolic- 2. Hypertension, 3. Acute kidney injury versus chronic kidney disease. 4. Mildly increased troponin level. 5. Long history of tobacco use, suspect underlying chronic obstructive pulmonary disease. 6. Ongoing marijuana use. 7. Peripheral vascular disease with prior right below-knee amputation. 8. nl TSH Plan . : 1. From a pulmonary standpoint she is on RA , non contrast ct chest with tiny LLL effusion. much better today. 2. P.r.n. Lasix. 3. Follow cardiology recommendations-- stress test neg 4. Follow nephrology recs 5. Outpatient PFTs. 6. TSH level normal ok with dc home pulm gilberto D/W NATALIE NIXON MD Feb 15, 2020 11:27
--- NOTE | 2020-02-15 12:15 | NUR ---
SS following up with discharge planning. SS reviewed pt chart and discussed with pt RN. Dr. Dove consulted and to see pt today. Currently awaiting on [employer] for new prosthesis. Pt is currently on room air. SS will continue to follow for discharge planning.
[2020-02-15] MEDS ORDERED: LOSARTAN POTASSIUM 25 MG TABLET. PO ONE (12:30)
--- NOTE | 2020-02-15 12:30 | PDOC ---
KEVIN FELTON [employer] OPERATOR CHIEF 02/15/20 1230: CARDIO Progress Notes Date and Time Date of Service 02/15/2020 Time of Evaluation 0950 Subjective Subjective: No Chest Pain, No shortness of breath, Other (LE edema much better) Vitals Vitals Vital Signs Date Time Temp Pulse Resp B/P (MAP) Pulse Ox O2 Delivery O2 Flow Rate FiO2 02/15/20 11:21 97.8 90 20 185/97 (126) 94 Room Air 97.8 02/15/20 09:57 2.0 Weight Weight [ ] Input and Output Intake and Output Intake and Output 02/15/20 07:00 Intake Total 1050 ml Output Total 1600 ml Balance -550 ml Intake Oral 1050 ml Output Urine Total 1600 ml Laboratory Labs Laboratory Tests Test 02/14/20 16:39 02/14/20 20:54 02/15/20 03:30 02/15/20 07:24 Glucose (Fingerstick) 133 mg/dL (70-99) 91 mg/dL (70-99) 81 mg/dL (70-99) White Blood Count 9.4 x10^3/uL (4.0-11.0) Red Blood Count 4.95 x10^6/uL (3.50-5.40) Hemoglobin 14.9 g/dL (12.0-15.5) Hematocrit 43.5 % (36.0-47.0) Mean Corpuscular Volume 88 fL (79-100) Mean Corpuscular Hemoglobin 30 pg (25-35) Mean Corpuscular Hemoglobin Concent 34 g/dL (31-37) Red Cell Distribution Width 15.5 % (11.5-14.5) Platelet Count 238 x10^3/uL (140-400) Test 02/15/20 11:40 Glucose (Fingerstick) 102 mg/dL (70-99) Review of Systems Constitutional: yes: alert, oriented Ears/Nose/Throat: Yes: no symptom reported Eyes: Yes: no symptom reported Pulmonary: Yes no symptom reported Cardiovascular: Yes no symptom reported Genitourinary: Yes: no symptom reported Musculoskeletal: Yes: no symptom reported Skin: Yes no symptom reported Psychiatric/Neurological: Yes: no symptom reported Endocrine: Yes: no symptom reported Physical Exam HEENT: Neck Supple W Full Motion Chest: Symmetric LUNGS: Clear to Auscultation, Other (diminished ) Heart: S1S2, RRR (SR/ST) Abdomen: Soft N/T, Other (obese ) Extremities: Other (1+ LLE edema. RLE BKA. Partial left foot amputation) Neurology: alert, oriented, follow commands Assessment Assessment 1. Generalized edema, anasarca Improved 2. Mild acute on chronic diastolic CHF; no SOA 3. Chest pain, atypical. MPI without evidence of ischemia 4. Mild troponin at 0.134. Echo with preserved LV systolic function 5. PVD s/p right BKA and partial left foot amputation. 6. Diabetes, II; BG better 7. Hypertension; labile 8. Hyperlipidemia; LDL 173 9. COPD with continued tobacco abuse. Discussed/encouraged cessation 10. YASMIN on CKD; appears back to baseline 10. Hypomagnesemia; replaced 11. H/o DVT on Xarelto Recommendations 1. ASA, optimize statin. Continue torsemide, norvasc and will add coreg. Uptitrate regimen per BP trend. optimize losartan 2. Hydralazine IV PRN 3,.Supportive care Justicifation of Admission Dx: Justifications for Admission: Justification of Admission Dx: Yes JACIEL RICHARD MD 02/15/20 1649: CARDIO Progress Notes Assessment Assessment Patient seen and examined Agree with our nurse practitioners assessment and plan. Assessment Generalized edema, anasarca Improved Mild acute on chronic diastolic CHF; no SOA Chest pain, atypical. MPI without evidence of ischemia Mild troponin at 0.134. Echo with preserved LV systolic function PVD s/p right BKA and partial left foot amputation. Hypertension; labile but improved COPD with continued tobacco abuse. Discussed/encouraged cessation YASMIN on CKD; appears back to baseline H/o DVT on Xarelto KEVIN FELTON APRN Feb 15, 2020 12:30 JACIEL RICHARD MD Feb 15, 2020 16:49
--- NOTE | 2020-02-15 13:13 | PDOC ---
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 Objective Objective Vital Signs Date Time Temp Pulse Resp B/P (MAP) Pulse Ox O2 Delivery O2 Flow Rate FiO2 02/15/20 12:30 90 185/97 02/15/20 11:21 97.8 20 94 Room Air 97.8 02/15/20 09:57 2.0 Intake and Output 02/15/20 07:00 Intake Total 1050 ml Output Total 1600 ml Balance -550 ml Intake Oral 1050 ml Output Urine Total 1600 ml Physical Exam Physical Exam She is supine in bed and still having low back pain with mobility with tenderness to palpation over sacroiliac joints bilaterally and SLR test is negative bilaterally and no change noted with her neurological examination. Assessment Assessment Problems Medical Problems: (1) NSTEMI (non-ST elevated myocardial infarction) Status: Acute Plan Plan of Care To get her up as tolerated. Comment Review of Relevant I have reviewed the following items myesha (where applicable) has been applied. Labs Laboratory Tests Test 02/13/20 17:02 02/13/20 20:49 02/14/20 02:55 02/14/20 07:28 Glucose (Fingerstick) 146 mg/dL (70-99) 192 mg/dL (70-99) 119 mg/dL (70-99) Sodium Level 145 mmol/L (136-145) Potassium Level 3.8 mmol/L (3.5-5.1) Chloride Level 106 mmol/L (98-107) Carbon Dioxide Level 29 mmol/L (21-32) Anion Gap 10 (6-14) Blood Urea Nitrogen 19 mg/dL (7-20) Creatinine 1.3 mg/dL (0.6-1.0) Estimated GFR (Cockcroft-Gault) 53.6 Glucose Level 116 mg/dL (70-99) Calcium Level 8.2 mg/dL (8.5-10.1) Magnesium Level 2.1 mg/dL (1.8-2.4) Test 02/14/20 11:46 02/14/20 16:39 02/14/20 20:54 02/15/20 03:30 Glucose (Fingerstick) 118 mg/dL (70-99) 133 mg/dL (70-99) 91 mg/dL (70-99) White Blood Count 9.4 x10^3/uL (4.0-11.0) Red Blood Count 4.95 x10^6/uL (3.50-5.40) Hemoglobin 14.9 g/dL (12.0-15.5) Hematocrit 43.5 % (36.0-47.0) Mean Corpuscular Volume 88 fL (79-100) Mean Corpuscular Hemoglobin 30 pg (25-35) Mean Corpuscular Hemoglobin Concent 34 g/dL (31-37) Red Cell Distribution Width 15.5 % (11.5-14.5) Platelet Count 238 x10^3/uL (140-400) Test 02/15/20 07:24 02/15/20 11:40 Glucose (Fingerstick) 81 mg/dL (70-99) 102 mg/dL (70-99) Laboratory Tests Test 02/14/20 16:39 02/14/20 20:54 02/15/20 03:30 02/15/20 07:24 Glucose (Fingerstick) 133 mg/dL (70-99) 91 mg/dL (70-99) 81 mg/dL (70-99) White Blood Count 9.4 x10^3/uL (4.0-11.0) Red Blood Count 4.95 x10^6/uL (3.50-5.40) Hemoglobin 14.9 g/dL (12.0-15.5) Hematocrit 43.5 % (36.0-47.0) Mean Corpuscular Volume 88 fL (79-100) Mean Corpuscular Hemoglobin 30 pg (25-35) Mean Corpuscular Hemoglobin Concent 34 g/dL (31-37) Red Cell Distribution Width 15.5 % (11.5-14.5) Platelet Count 238 x10^3/uL (140-400) Test 02/15/20 11:40 Glucose (Fingerstick) 102 mg/dL (70-99) Medications Current Medications Aspirin (Aspirin Chewable) 324 mg 1X ONCE PO Last administered on 02/10/20at 20 :36; Start 02/10/20 at 20:00; Stop 02/10/20 at 20:01; Status DC Heparin Sodium (Porcine) (Heparin Sodium) 4,000 unit 1X ONCE IV Last administered on 02/10/20at 21:31; Start 02/10/20 at 21:30; Stop 02/10/20 at 21:31; Status DC Heparin Sodium/ Dextrose 250 ml @ 0 mls/hr CONT IV ; Start 02/10/20 at 21:15; Status UNV Heparin Sodium/ Dextrose 250 ml @ 0 mls/hr CONT PRN IV PER PROTOCOL Last administered on 02/12/20at 21:10; Start 02/10/20 at 21:30 Heparin Sodium (Porcine) (Heparin Sodium) 2,950 unit PRN Q6HRS PRN IV FOR UFH LEVEL LESS THAN 0.2; Start 02/10/20 at 21:30 Info (Anti-Coagulation Monitoring By Pharmacy) 1 each PRN DAILY PRN MC SEE COMMENTS Last administered on 02/11/20at 01:59; Start 02/10/20 at 21:30 Insulin Glargine (Lantus Syringe) 65 unit QHS SQ Last administered on 02/14/20at 21:03; Start 02/11/20 at 01:00 Dextrose (Dextrose 50%-Water Syringe) 12.5 gm PRN Q15MIN PRN IV SEE COMMENTS; Start 02/11/20 at 00:30 Insulin Human Lispro (HumaLOG) 35 units TIDWMEALS SQ Last administered on 02/14/20at 17:44; Start 02/11/20 at 08:00 Insulin Human Lispro (HumaLOG) 20 units 1X ONCE SQ Last administered on 02/11/20at 00:40; Start 02/11/20 at 01:00; Stop 02/11/20 at 01:01; Status DC Fentanyl Citrate (Fentanyl 2ml Vial) 50 mcg PRN Q2HR PRN IVP SEVERE PAIN 7-10 Last administered on 02/13/20at 15:44; Start 02/11/20 at 00:30 Fluconazole (Diflucan) 150 mg 1X ONCE PO Last administered on 02/11/20at 13:11; Start 02/11/20 at 12:00; Stop 02/11/20 at 12:01; Status DC Phenazopyridine HCl (Pyridium) 200 mg PRN Q6HRS PRN PO URINARY PAIN Last a dministered on 02/12/20at 21:22; Start 02/11/20 at 11:45 Potassium Chloride (Klor-Con) 20 meq 1X ONCE PO Last administered on 02/11/20at 13:11; Start 02/11/20 at 12:00; Stop 02/11/20 at 12:01; Status DC Losartan Potassium (Cozaar) 50 mg DAILY PO Last administered on 02/12/20at 09:33; Start 02/11/20 at 12:00; Stop 02/12/20 at 14:33; Status DC Torsemide (Demadex) 20 mg BID PO Last administered on 02/15/20at 08:57; Start 02/11/20 at 12:00 Potassium Chloride (Klor-Con) 30 meq DAILYWBKFT PO ; Start 02/11/20 at 13:00; S top 02/11/20 at 15:28; Status DC Potassium Chloride (Klor-Con) 30 meq 1X PO ; Start 02/11/20 at 16:00 Potassium Chloride (Klor-Con) 40 meq 1X ONCE PO Last administered on 02/12/20at 06:45; Start 02/12/20 at 06:30; Stop 02/12/20 at 06:31; Status DC Potassium Chloride (Klor-Con) 40 meq 1X ONCE PO Last administered on 02/12/20at 09:37; Start 02/12/20 at 08:30; Stop 02/12/20 at 08:31; Status DC Potassium Chloride (Klor-Con) 40 meq 1X ONCE PO ; Start 02/12/20 at 10:30; Stop 02/12/20 at 10:31; Status DC Losartan Potassium (Cozaar) 75 mg DAILY PO Last administered on 02/15/20at 08:57; Start 02/13/20 at 09:00; Stop 02/15/20 at 12:27; Status DC Losartan Potassium (Cozaar) 25 mg 1X ONCE PO Last administered on 02/12/20at 16:32; Start 02/12/20 at 14:30; Stop 02/12/20 at 14:38; Status DC Lidocaine (Lidoderm) 1 patch PRN DAILY PRN TD PAIN Last administered on 02/13/20at 21:45; Start 02/12/20 at 19:30 Acetaminophen (Tylenol) 650 mg PRN Q6HRS PRN PO MILD PAIN 1-3 Last administered on 02/12/20at 21:22; Start 02/12/20 at 19:30 Magnesium Sulfate 50 ml @ 25 mls/hr 1X ONCE IV Last administered on 02/13/20at 03:45; Start 02/13/20 at 04:00; Stop 02/13/20 at 05:59; Status DC Potassium Chloride (Klor-Con) 40 meq 1X ONCE PO Last administered on 02/13/20at 05:59; Start 02/13/20 at 06:00; Stop 02/13/20 at 06:01; Status DC Potassium Chloride (Klor-Con) 40 meq 1X ONCE PO Last administered on 02/13/20at 08:12; Start 02/13/20 at 08:00; Stop 02/13/20 at 08:01; Status DC Potassium Chloride (Klor-Con) 40 meq 1X ONCE PO Last administered on 02/13/20at 11:13; Start 02/13/20 at 10:00; Stop 02/13/20 at 10:01; Status DC Oxycodone/ Acetaminophen (Percocet 10/325) 1 tab PRN Q4HRS PRN PO MODERATE- SEVERE PAIN Last administered on 02/15/20at 08:57; Start 02/13/20 at 12:00 Oxycodone HCl (Roxicodone) 20 mg PRN Q6HRS PRN PO PAIN/IF PERCOCET FAIL TO HELP Last administered on 02/14/20at 20:56; Start 02/13/20 at 12:00 Hydralazine HCl (Apresoline Inj) 10 mg PRN Q4HRS PRN IVP ELEVATED BP, SEE COMMENTS Last administered on 02/15/20at 10:56; Start 02/13/20 at 13:00 Regadenoson (Lexiscan) 0.4 mg 1X ONCE IV Last administered on 02/13/20at 14:58; Start 02/13/20 at 13:30; Stop 02/13/20 at 13:31; Status DC Ondansetron HCl (Zofran) 4 mg PRN Q4HRS PRN IVP NAUSEA/VOMITING Last administered on 02/13/20at 15:44; Start 02/13/20 at 15:30 Amlodipine Besylate (Norvasc) 10 mg DAILY PO Last administered on 02/15/20at 08:57; Start 02/14/20 at 09:00 Atorvastatin Calcium (Lipitor) 10 mg QHS PO Last administered on 02/13/20at 21:46; Start 02/13/20 at 21:00; Stop 02/14/20 at 12:08; Status DC Aspirin (Ecotrin) 81 mg DAILYWBKFT PO Last administered on 02/15/20at 08:57; Start 02/14/20 at 08:00 Atorvastatin Calcium (Lipitor) 20 mg QHS PO Last administered on 02/14/20at 20:56; Start 02/14/20 at 21:00; Stop 02/15/20 at 12:25; Status DC Atorvastatin Calcium (Lipitor) 40 mg QHS PO ; Start 02/15/20 at 21:00 Losartan Potassium (Cozaar) 100 mg DAILY PO ; Start 02/16/20 at 09:00 Losartan Potassium (Cozaar) 25 mg 1X ONCE PO Last administered on 02/15/20at 12:30; Start 02/15/20 at 12:30; Stop 02/15/20 at 12:31; Status DC Carvedilol (Coreg) 3.125 mg BIDWMEALS PO ; Start 02/15/20 at 17:00 Active Scripts Active Reported Tizanidine Hcl 2 Mg Tablet 2 Mg PO PRN Q6HRS PRN Losartan Potassium 50 Mg Tablet 50 Mg PO DAILY Montelukast Sodium Tablet (Montelukast Sodium) 10 Mg Tablet 10 Mg PO HS Torsemide 20 Mg Tablet 2 Tab PO DAILY Furosemide 80 Mg Tablet 1 Tab PO BID Xarelto (Rivaroxaban) 20 Mg Tablet 1 Tab PO DAILY 30 Days with food Lovastatin 40 Mg Tablet 40 Mg PO HS Humalog (Insulin Lispro) 100 Unit/1 Ml Insuln.pen 35 Unit SQ TIDWMEALS Lantus Solostar (Insulin Glargine,Hum.rec.anlog) 100 Unit/1 Ml Insuln.pen 65 Unit SQ QHS Gabapentin (Gabapentin) 300 Mg Capsule 300 Mg PO TID Amlodipine Besylate 10 Mg Tablet 10 Mg PO DAILY Vitals/I & O Vital Sign - Last 24 Hours 02/14/20 02/14/20 02/14/20 02/14/20 14:51 15:02 17:34 17:36 Temp 98.1 98.1 Pulse 96 92 Resp 24 B/P (MAP) 206/111 (142) 175/99 (124) 205/107 Pulse Ox 100 O2 Delivery Room Air Room Air 02/14/20 02/14/20 02/14/20 02/14/20 18:55 19:00 19:30 20:56 Temp 98.3 98.3 Pulse 103 Resp 18 18 18 B/P (MAP) 173/93 (119) Pulse Ox 94 94 96 O2 Delivery Room Air Room Air Room Air Room Air 02/14/20 02/14/20 02/15/20 02/15/20 21:56 23:00 03:40 07:00 Temp 98.9 97.7 97.7 98.9 97.7 97.7 Pulse 97 102 90 Resp 16 18 20 22 B/P (MAP) 157/99 (118) 159/101 (120) 159/90 (113) Pulse Ox 97 100 98 98 O2 Delivery Room Air Room Air Room Air Room Air 02/15/20 02/15/20 02/15/20 02/15/20 08:45 08:57 08:57 08:57 Pulse 90 90 Resp 18 B/P (MAP) 159/90 159/90 Pulse Ox 98 O2 Delivery Room Air Room Air O2 Flow Rate 2.0 02/15/20 02/15/20 02/15/20 02/15/20 09:57 10:56 11:21 12:30 Temp 97.8 97.8 Pulse 90 90 90 Resp 18 20 B/P (MAP) 185/97 185/97 (126) 185/97 Pulse Ox 98 94 O2 Delivery Room Air Room Air O2 Flow Rate 2.0 Intake and Output 02/14/20 02/14/20 02/15/20 15:00 23:00 07:00 Intake Total 240 ml 360 ml 450 ml Output Total 800 ml 800 ml Balance 240 ml -440 ml -350 ml JORGE A DONIS MD Feb 15, 2020 13:13
--- NOTE | 2020-02-15 13:28 | NUR ---
Wound Care Wound assessed by Dr Dove as today was her scheduled appt in clinic. Wound vac applied at 150 mmHg with clyde and white foam, tracked to L medial lower leg. Good seal obtained. Pt will follow up in clinic next Thursday. HHRN will change dressing on Thursday. Addendum: 02/15/20 at 1332 by RAMONA GONZALEZ RN Wrong patient
--- NOTE | 2020-02-15 13:36 | NUR ---
Wound Care Pt seen by Dr Dove for bedside debridement of left TMA. Consent signed. Callous debrided off left TMA, cartilage exposed. Wound pictured and measured after debridement, and dressed with betadine and telfa. Pt educated to follow up with Primary Dr and wound care within one week to address wound as it will need close monitoring and wound care. Pt stated she will follow up within a week. Pt educted on risk of infection with exposed cartilage, she verbalized again she would call her Dr as soon as she gets home today to set appt. Pt educated to paint daily with betadine and cover with bandaid and absolutely no shower water to wound. Pt repeated back teaching. Pt understands she cannot follow up in our wound clinic due to having [place] medicaid. Pt scheduled to discharge today. Right BKA dressed with xeroform and telfa bandaid. Pt will require callous removal on this site after discharge.
--- NOTE | 2020-02-15 14:21 | PDOC2 ---
Chief Complaint: Chief Complaint: 44 yo diabetic female admitted for cardiac issues has a hx of BLE amputations and now has open wounds on her right BKA and left great toe amputation site Problems: (1) NON-PRS CHRONIC ULCER OTH PRT LEFT FOOT WITH OTH SEVERITY (2) NON-PRS CHRONIC ULCER OF RIGHT CALF LIMITED TO BRKDWN SKIN (3) TYPE 2 DIABETES MELLITUS WITH FOOT ULCER Vital Signs: Vital Signs: Vital Signs Date Time Temp Pulse Resp B/P (MAP) Pulse Ox O2 Delivery O2 Flow Rate FiO2 02/14/20 07:00 98.0 109 20 184/94 (124) 97 Room Air 98.0 02/14/20 08:00 2.0 Vital Signs Date Time Temp Pulse Resp B/P (MAP) Pulse Ox O2 Delivery O2 Flow Rate FiO2 02/15/20 12:30 90 185/97 02/15/20 11:21 97.8 20 94 Room Air 97.8 02/15/20 09:57 2.0 Allergies: Allergies: Allergies Coded Allergies Type Severity Reaction Last Updated Verified Penicillins Allergy Intermediate 02/10/18 Yes morphine Allergy Intermediate 02/10/18 Yes Medications: Home Meds Reported Medications Tizanidine Hcl (TIZANIDINE HCL) 2 Mg Tablet, 2 MG PO PRN Q6HRS PRN for PAIN 02/10/20 Losartan Potassium (LOSARTAN POTASSIUM) 50 Mg Tablet, 50 MG PO DAILY for HYPERTENSION, TAB 02/10/20 Montelukast Sodium (MONTELUKAST SODIUM TABLET ) 10 Mg Tablet, 10 MG PO HS for FOR ASTHMA, TAB 0 Refills 02/10/20 Torsemide (TORSEMIDE) 20 Mg Tablet, 2 TAB PO DAILY for diuretic, #90 TAB 1 Refill 02/10/20 Furosemide (FUROSEMIDE) 80 Mg Tablet, 1 TAB PO BID for diuretic, #30 TAB 5 Refills 02/10/20 Rivaroxaban (XARELTO) 20 Mg Tablet, 1 TAB PO DAILY for hx dvt, anticoagulation for 30 Days, #30 TAB 0 Refills with food 02/10/20 Lovastatin (LOVASTATIN) 40 Mg Tablet, 40 MG PO HS, TAB 02/09/18 Insulin Lispro (HUMALOG) 100 Unit/1 Ml Insuln.pen, 35 UNIT SQ TIDWMEALS, SYR 02/09/18 Insulin Glargine,Hum.rec.anlog (LANTUS SOLOSTAR) 100 Unit/1 Ml Insuln.pen, 65 UNIT SQ QHS, #15 ML 3 Refills 02/09/18 Gabapentin (GABAPENTIN ) 300 Mg Capsule, 300 MG PO TID for pain management, CAP 02/09/18 Amlodipine Besylate (AMLODIPINE BESYLATE) 10 Mg Tablet, 10 MG PO DAILY, TAB 02/09/18 Pain: Scale (pain): 10 Date of Onset 44 yo diabetic female admitted for cardiac issues has a hx of BLE amputations and now has open wounds on her right BKA and left great toe amputation site. She has an ill fitting prosthetic for her right BKA which has created a callus with fissuring. No drainage no odor no bleeding no pain. She also has thick callus and odor over the amputation site of the left great toe. After extensive shaaving of callous there is still no drainage or bleeding. However the cartilage of the metatarsal head is exposed. The soft tissue around the cartilage is juxtaposed to and/or adhered to the cartilage. The cartilage is white and appears intact. No signs or symptoms of infection. A/P Ms Baptiste will need follow-up at the wound care center at [facility] shortly after discharge from [place] today. Neither of her wounds appear i nfected. They both appear stable. However I am concerned that leaving the cartilage exposed for any period of time could cause tissue degeneration and worsening functional status. Patient is aware of the importance of following up soon. I started her on Cipro 500 mg daily prophylactically. Problems: (1) NON-PRS CHRONIC ULCER OTH PRT LEFT FOOT WITH OTH SEVERITY (2) NON-PRS CHRONIC ULCER OF RIGHT CALF LIMITED TO BRKDWN SKIN (3) TYPE 2 DIABETES MELLITUS WITH FOOT ULCER KIM DICKENS MD Feb 15, 2020 14:21
[2020-02-15 15:00] VITALS: BP 191/97
--- NOTE | 2020-02-15 16:24 | NUR ---
Discharge Note: EVELYN [facility] [address] Discharge instructions and discharge home medications reviewed with Patient and a copy given. All questions have been answered and understanding verbalized. The following instructions and handouts were given: Follow up with Primary Care Provider, Anita at [facility], and patient's wound care [facility] within this week. Education pertaining to Cipro, prothetic supplies and care was discussed and sent with patient. Scripts were given and sent electronically to pharmacy for patient. Discontinued lines and drains: 22g left hand was removed with tip intact. Patient discharged to home with self care. Family friend drove patient from [facility] facility.
[2020-02-15] MEDS ORDERED: OXYC1TAB15 PO (16:30)
[2020-02-15] MEDS ORDERED: CARVEDILOL 3.125 MG TABLET. PO SCH (17:00)
[2020-02-15] MEDS ORDERED: ATORVASTATIN CALCIUM 40 MG TABLET. PO SCH (21:00)
[2020-02-16] MEDS ORDERED: LOSARTAN POTASSIUM 50 MG TABLET. PO SCH (09:00)
--- NOTE | 2020-02-21 14:22 | PDOC ---
Provider Note Provider Note [id number] Pt was notified to verify meds in place. She does take home baby ASA, carvedilol and 80 mg daily lipitor instead of lovastatin. in addition to her meds. Justicifation of Admission Dx: Justifications for Admission: Justification of Admission Dx: Yes KEVIN FELTON APRN Feb 21, 2020 14:21
== END 2020-02-15 16:18 | disposition home or self-care (01) | DRG 280 ==
LOC: ER 17:37 → 2 SOUTH 20:45
PROVIDERS: ADMIT Internal Medicine; ATTEND Internal Medicine
DX: I21.4 Non-ST elevation (NSTEMI) myocardial infarction (principal); I50.43 Acute on chronic combined systolic (congestive) and diastolic (congestive) heart failure; E43 Unspecified severe protein-calorie malnutrition; N17.0 Acute kidney failure with tubular necrosis; Z68.42 Body mass index [BMI] 45.0-49.9, adult; I13.0 Hypertensive heart and chronic kidney disease with heart failure and stage 1 through stage 4 chronic kidney disease, or unspecified chronic kidney disease; J98.11 Atelectasis; L97.219 Non-pressure chronic ulcer of right calf with unspecified severity; N18.4 Chronic kidney disease, stage 4 (severe); Z68.41 Body mass index [BMI] 40.0-44.9, adult; E11.22 Type 2 diabetes mellitus with diabetic chronic kidney disease; E11.42 Type 2 diabetes mellitus with diabetic polyneuropathy; E11.51 Type 2 diabetes mellitus with diabetic peripheral angiopathy without gangrene; E11.621 Type 2 diabetes mellitus with foot ulcer; E66.01 Morbid (severe) obesity due to excess calories; E78.00 Pure hypercholesterolemia, unspecified; E78.5 Hyperlipidemia, unspecified; E83.42 Hypomagnesemia; E87.6 Hypokalemia; F12.90 Cannabis use, unspecified, uncomplicated; F17.210 Nicotine dependence, cigarettes, uncomplicated; I70.201 Unspecified atherosclerosis of native arteries of extremities, right leg; J44.9 Chronic obstructive pulmonary disease, unspecified; L97.509 Non-pressure chronic ulcer of other part of unspecified foot with unspecified severity; M17.12 Unilateral primary osteoarthritis, left knee; W01.0XXA Fall on same level from slipping, tripping and stumbling without subsequent striking against object, initial encounter; Z82.49 Family history of ischemic heart disease and other diseases of the circulatory system; Z86.718 Personal history of other venous thrombosis and embolism; Z83.3 Family history of diabetes mellitus; Z86.73 Personal history of transient ischemic attack (TIA), and cerebral infarction without residual deficits; Z88.0 Allergy status to penicillin; Z89.511 Acquired absence of right leg below knee; Z91.19 Patient's noncompliance with other medical treatment and regimen; Z79.01 Long term (current) use of anticoagulants; Z71.6 Tobacco abuse counseling
CPT/HCPCS: 36415; 71045; 71250; 78452; 80048; 80053; 80061; 80069; 81001; 82962; 83735; 83880; 84443; 84484; 85025; 85027; 85520; 85610; 85730; 93005; 93017; 93306; 93926; 93971; 96374; 99285; A9500; J0360; J1644; J1815; J2405; J2785; J3010; J3475; G0378